=== PATIENT | male | born 1940 | race Caucasian/White ===

== ENCOUNTER 2018-01-12 12:23 | Outpatient (CLI) | payer MEDICARE ==
[2018-01-12 15:42] LABS: Bacteria/HPF None Seen HPF (None Seen); Bilirubin Negative (Negative); Blood, Urine Negative (Negative); Clarity CLEAR (Clear); Glucose, Urine (Dipstick) Negative (Negative); Hyaline Casts/LPF 0-3 HYALINE CAST LPF (0-3 Hyaline); Leukocyte Trace (Negative); Nitrite Negative (Negative); Protein, Urine (Dipstick) Negative (Neg-Trace); Specific Gravity, Urine 1.018 (1.002-1.036); Squamous Epithelial None Seen HPF (0-3); WBC/HPF None Seen HPF (0-3)
--- NOTE | 2018-01-12 17:17 | EKG ---
Test Reason : Blood Pressure : / mmHG Vent. Rate : 063 BPM Atrial Rate : 063 BPM P-R Int : 218 ms QRS Dur : 104 ms QT Int : 428 ms P-R-T Axes : 034 -26 -19 degrees QTc Int : 437 ms Sinus rhythm with 1st degree A-V block with Premature supraventricular complexes Voltage criteria for left ventricular hypertrophy Abnormal ECG Confirmed by YASMEEN MATIAS ([id number]) on 01/12/2018 5:16:30 PM Referred By: BASILIORO Confirmed By:YASMEEN MATIAS
== END 2018-01-12 12:24 | disposition home or self-care (01) ==
LOC: LABBT 12:23
PROVIDERS: ATTEND Orthopaedic Surgery
DX: Z01.818 Encounter for other preprocedural examination (principal); M17.11 Unilateral primary osteoarthritis, right knee
CPT/HCPCS: 81001; 87081; 93005; 93010

== ENCOUNTER 2018-01-18 08:48 | Outpatient (CLI) | payer MEDICARE ==
[2018-01-18 09:53] LABS: #Eosinphils 0.2 thou/uL (0.0-0.7); #Lymphocytes 1.4 thou/uL (1.20-3.40); #Monocytes 0.6 thou/uL (0.11-0.59); %Basophils 0.8 % (0.0-1.0); %Eosinophils 2.4 % (0.0-10.0); %Lymphocytes 22.6 % (21.0-51.0); %Neutrophils 64.3 % (42.0-75.0); Hemoglobin 14.1 g/dL (14.0-18.0); Mean Corpuscular HGB CONC 34.1 g/dL (32.0-36.0); Mean Corpuscular Hemoglobin 32.9 pg (27.0-31.0); Mean Corpuscular Volume 96.3 fL (78.0-98.0); Mean Platelet Volume 7.8 fL (7.4-10.4); Platelet Count 192 thou/uL (130-400); RBC Distribution Width 12.6 % (11.5-14.5); Red Blood Cell (RBC) Count 4.28 mill/uL (4.70-6.10); White Blood Cell (WBC) Count 6.2 thou/uL (4.8-10.8)
[2018-01-18 09:59] LABS: Prothrombin Time 12.8 SEC (12.0-14.7)
[2018-01-18 10:00] LABS: PTT 26.8 SEC (22.9-36.1)
[2018-01-18 10:14] LABS: Anion Gap 13 mmol/L (10-20); BUN (Urea Nitrogen) 21 mg/dL (8.4-25.7); Calc. Creatinine Clearance 0 mL/min (70-130); Calcium 9.5 mg/dL (7.8-10.44); Carbon Dioxide 24 mmol/L (23-31); Chloride 106 mmol/L (98-107); Estimated GFR-MDRD 76; Glucose 93 mg/dL (83-110); Potassium 4.2 mmol/L (3.5-5.1); Sodium 139 mmol/L (136-145)
== END 2018-01-18 08:49 | disposition home or self-care (01) ==
LOC: LABBT 08:48
PROVIDERS: ATTEND Orthopaedic Surgery
DX: Z01.818 Encounter for other preprocedural examination (principal); M17.11 Unilateral primary osteoarthritis, right knee
CPT/HCPCS: 80048; 85025; 85610; 85730; 86850; 86900; 86901

== ENCOUNTER 2018-01-23 05:25 | Inpatient (IN) | payer MEDICARE ==
[2018-01-23] MEDS ORDERED: Lidocaine 1% PF 5 ML VIAL ONE ×2 (06:20→12:50)
[2018-01-23] MEDS ORDERED: Fentanyl 100 MCG/2 ML VIAL ONE (06:20)
[2018-01-23] MEDS ORDERED: Midazolam HCl 2 mg/2 ml Vial ONE (06:20)
[2018-01-23] MEDS ORDERED: CEFAZOLIN/Water 2 GM/20 ML SYRINGE ONE (06:23)
[2018-01-23] MEDS ORDERED: Sodium Chloride 0.9% 100 ML ONE (06:23)
[2018-01-23] MEDS ORDERED: Bupivacaine PF 0.5% 30 ML VIAL ONE (06:39)
[2018-01-23] MEDS ORDERED: Ondansetron HCl/PF 4 MG/2 ML Vial IVP PRN ×3 (07:14→09:32)
[2018-01-23] MEDS ORDERED: Promethazine HCl 25 MG/ML VIAL SLOW IVP PRN (07:14)
[2018-01-23] MEDS ORDERED: Ketorolac Tromethamine 30 MG/ML VIAL IVP PRN (07:14)
[2018-01-23] MEDS ORDERED: Promethazine HCl 25 MG/ML VIAL IM PRN ×3 (07:14→09:32)
[2018-01-23] MEDS ORDERED: traMADol HCl 50 MG TAB PO PRN ×3 (07:22→09:32)
[2018-01-23] MEDS ORDERED: Acetaminophen 325 MG TAB PO PRN (07:22)
[2018-01-23] MEDS ORDERED: diphenhydrAMINE 25 MG CAP PO PRN (07:22)
[2018-01-23] MEDS ORDERED: Fentanyl 100 MCG/2 ML VIAL SLOW IVP PRN (07:22)
[2018-01-23] MEDS ORDERED: HYDROcodone/Acetaminophen 10/325 mg Tablet PO PRN ×3 (07:22→09:32)
[2018-01-23] MEDS ORDERED: Zolpidem Tartrate 5 MG TAB PO PRN (07:22)
[2018-01-23] MEDS ORDERED: Tranexamic Acid 1,000 MG in Sodium Chloride 0.9% 100 ML IVPB SCH (07:30)
[2018-01-23] MEDS ORDERED: HYDROmorphone 0.5 MG/0.5 ML SYRINGE ONE (07:49)
[2018-01-23] MEDS ORDERED: metFORMIN 500 MG TAB PO SCH (08:00)
[2018-01-23] MEDS ORDERED: Ropivacaine HCl/PF 250 ML in Premix Bag 1 BAG NERVE BLCK SCH (09:32)
[2018-01-23] MEDS ORDERED: Fentanyl 100 MCG/2 ML VIAL IV PRN (09:33)
[2018-01-23] MEDS: Sodium Chloride 0.9% 1,000 ML IV SCH ×2 (10:52→17:46)
[2018-01-23] MEDS ORDERED: Ropivacaine 0.5% HCl/PF (150 MG/30 ML VIAL) ONE (11:13)
[2018-01-23] MEDS ORDERED: Bupivacaine 0.25% HCL 30 ML VIAL ONE (11:13)
[2018-01-23] MEDS ORDERED: PROPOFOL 200 MG/20 ML VIAL ONE (12:50)
[2018-01-23] MEDS ORDERED: ePHEDrine/0.9% NaCl/PF SYRINGE 50 mg/10 ml ONE (12:50)
[2018-01-23] MEDS ORDERED: Ketorolac Tromethamine 30 MG/ML VIAL ONE (12:50)
[2018-01-23] MEDS ORDERED: Ondansetron HCl/PF 4 MG/2 ML Vial ONE (12:50)
--- NOTE | 2018-01-23 12:51 | CON-2 ---
DATE OF CONSULTATION: 01/23/2018 REASON FOR CONSULT: Medical management. RESIDENT: Dr. Jenaro Currie, PGY-2 ATTENDING: Dr. Esteban Gupta CHIEF COMPLAINT: Here for right knee replacement. HISTORY OF PRESENT ILLNESS: This is a 77-year-old male who presented today for surgery for a right knee replacement due to severe osteoarthritis. The patient is doing well. He is postop. He denies any problems at this time. He received a nerve block. Reports pain being well managed at this time. He has no other complaints of fever or chills. No complaints of shortness of breath. Denies any abdominal pain. Denies any other problems at this time. No other questions or concerns at this time. REVIEW OF SYSTEMS: All review of systems unless in the HPI or otherwise negative. Neuro: Denies any numbness, tingling. Denies any focal neuro deficits. PAST MEDICAL HISTORY: Hypertension, diabetes mellitus type 2, osteoarthritis and prostate cancer and he also has a history of kidney stones, he has recently passed one 1 month ago. PAST SURGICAL HISTORY: He had a right rotator cuff repair, he has had a left knee replacement, and now the right knee replaced. He has had to have a kidney stone removed by lithotripsy in the past. FAMILY HISTORY: Insignificant. ALLERGIES: No known drug allergies. MEDICATIONS: 1. Magnesium 250 mg p.o. at bedtime. 2. Doxazosin 2 mg p.o. at bedtime. 3. Vitamin D3 1000 units p.o. daily. 4. Naproxen 1 tab p.o. b.i.d. 5. Aspirin 81 mg p.o. q.p.m. 6. Tamsulosin 2.4 mg 2 tabs p.o. daily. 7. Metformin 500 mg 2 tabs p.o. b.i.d. 8. Glipizide 5 mg p.o. q.p.m. PHYSICAL EXAMINATION: VITAL SIGNS: Initial vital signs; temperature was 97.4, pulse 75, respirations 18, O2 sat was 96% on 2 liters nasal cannula, blood pressure 151/92. GENERAL: He is alert and oriented x3, no acute distress. HEAD: Atraumatic, normocephalic. EARS/NOSE/THROAT: Eyes; PERRLA. No injected sclerae. Throat; no swelling, no masses. No lymphadenopathy. Trachea midline. CARDIOVASCULAR: Regular rate and rhythm. No murmurs or gallops. RESPIRATORY: Lungs are clear to auscultation in all 4 lobes. No rales, wheezes or crackles. Symmetric chest expansion. Somewhat difficult to auscultate due to body habitus. ABDOMEN: Nontender to palpation in all 4 quadrants. Bowel sounds positive. No masses. Nondistended. NEUROLOGIC: No focal neuro deficit. MUSCULOSKELETAL: Able to move upper extremities. Right leg is dressed at this time. No sign of oozing or redness. The patient is yet to get up postop. EXTREMITIES: No edema noted in bilateral extremities. LABORATORY DATA: No significant labs. ASSESSMENT AND PLAN: 1. Right knee replacement. We will continue current pain regimen as prescribed by the primary Surgery Team/Ortho Team. He has a nerve block as well from Anesthesiology. We will continue to follow their recommendations. 2. Hypertension. We will continue to monitor blood pressure and adjust medicines as needed on doxazosin at this time, will continue at regular dose. 3. Diabetes mellitus type 2. We will continue his home medications. We will check Accu-Cheks q.12h. to make sure the patient does not get hypoglycemic as he has not eaten yet today. 4. History of prostate cancer. We will continue his home medications at this time. 5. Deep venous thrombosis prophylaxis. He has SCDs on. 6. Gastrointestinal prophylaxis, he has promethazine p.r.n. MTDD
[2018-01-23] MEDS: Aspirin 81 mg Enteric Coated Tablet PO SCH ×2 (13:29→20:31)
[2018-01-23] MEDS: Tamsulosin HCl 0.4 MG CAP PO SCH (13:29)
[2018-01-23] MEDS ORDERED: Ketorolac Tromethamine 30 MG/ML VIAL IVP SCH (14:00)
--- NOTE | 2018-01-23 15:19 | PDOC.EVN ---
Attending Addendum - Attending Addendum Date/Time: 01/23/18 9632 I personally evaluated the patient and discussed the management with Dr. Currie. I agree with the History, Examination, Assessment and Plan documented in his consultation note with any addition or exceptions noted below. Patient is 77 yo M with PMHx HTN, T2DM controlled on oral medications here for elective R TKR. He reports his pain is well controlled s/p surgery this morning. Exam is benign and BP mildly elevated but otherwise vitals are stable. Pain control and disposition will be per the primary team. We will continue him on his home medications for chronic conditions and adjust as needed. Continue accuchecks and need to ensure he eats well to prevent hypoglycemia in setting of sulfonylurea use. We will be happy to follow along during the hospitalization and treat any emerging medical conditions that may occur during the hospitalization.
[2018-01-23] MEDS: CEFAZOLIN/Water 2 GM/20 ML SYRINGE SLOW IVP SCH ×2 (15:58→22:59)
[2018-01-23] MEDS: metFORMIN 500 MG TAB PO SCH (17:44)
[2018-01-23] MEDS: glipiZIDE 5 MG TAB PO SCH (20:32)
[2018-01-23] MEDS: Magnesium Oxide 250 MG TAB PO SCH (20:32)
[2018-01-23] MEDS: Doxazosin 2 MG TAB PO SCH (20:32)
[2018-01-24] MEDS: HYDROcodone/Acetaminophen 10/325 mg Tablet PO PRN ×2 (02:31→11:34)
[2018-01-24] MEDS: Sodium Chloride 0.9% 1,000 ML IV SCH ×2 (04:21→13:57)
[2018-01-24 05:44] LABS: Hemoglobin 11.6 g/dL (14.0-18.0); Mean Corpuscular HGB CONC 34.2 g/dL (32.0-36.0); Mean Corpuscular Hemoglobin 33.2 pg (27.0-31.0); Mean Corpuscular Volume 97.2 fL (78.0-98.0); Mean Platelet Volume 7.6 fL (7.4-10.4); Platelet Count 162 thou/uL (130-400); RBC Distribution Width 12.6 % (11.5-14.5); Red Blood Cell (RBC) Count 3.48 mill/uL (4.70-6.10); White Blood Cell (WBC) Count 9.1 thou/uL (4.8-10.8)
[2018-01-24] MEDS ORDERED: Ferrous Gluconate 324 MG TAB PO SCH (08:00)
[2018-01-24] MEDS: metFORMIN 500 MG TAB PO SCH ×2 (10:05→18:31)
[2018-01-24] MEDS: Multivitamin W/ Minerals 1 TAB PO SCH (10:05)
[2018-01-24] MEDS: Aspirin 81 mg Enteric Coated Tablet PO SCH ×2 (10:05→20:58)
[2018-01-24] MEDS: Tamsulosin HCl 0.4 MG CAP PO SCH (10:05)
[2018-01-24] MEDS: Senokot S 8.6-50 MG TAB PO SCH ×2 (10:05→20:58)
[2018-01-24] MEDS: Ketorolac Tromethamine 30 MG/ML VIAL IVP PRN (11:37)
[2018-01-24 14:12] VITALS: BMI 38.2
[2018-01-24] MEDS: glipiZIDE 5 MG TAB PO SCH (20:58)
[2018-01-24] MEDS: Magnesium Oxide 250 MG TAB PO SCH (20:58)
[2018-01-24] MEDS: Zolpidem Tartrate 5 MG TAB PO PRN (21:00)
[2018-01-24] MEDS: Doxazosin 2 MG TAB PO SCH (21:02)
[2018-01-25] MEDS: Ketorolac Tromethamine 30 MG/ML VIAL IVP PRN (00:12)
[2018-01-25] MEDS: Sodium Chloride 0.9% 1,000 ML IV SCH ×3 (00:18→19:30)
[2018-01-25 05:14] LABS: Hemoglobin 10.5 g/dL (14.0-18.0); Mean Corpuscular HGB CONC 34.6 g/dL (32.0-36.0); Mean Corpuscular Hemoglobin 33.8 pg (27.0-31.0); Mean Corpuscular Volume 97.5 fL (78.0-98.0); Mean Platelet Volume 7.3 fL (7.4-10.4); Platelet Count 147 thou/uL (130-400); RBC Distribution Width 12.5 % (11.5-14.5); White Blood Cell (WBC) Count 7.9 thou/uL (4.8-10.8)
[2018-01-25] MEDS: Aspirin 81 mg Enteric Coated Tablet PO SCH ×2 (08:32→20:59)
[2018-01-25] MEDS: metFORMIN 500 MG TAB PO SCH ×2 (08:32→17:33)
[2018-01-25] MEDS: Multivitamin W/ Minerals 1 TAB PO SCH (08:32)
[2018-01-25] MEDS: Senokot S 8.6-50 MG TAB PO SCH ×2 (08:32→20:59)
[2018-01-25] MEDS: Tamsulosin HCl 0.4 MG CAP PO SCH (08:32)
--- NOTE | 2018-01-25 09:15 | PDOC.FM ---
- Subjective Subjective: Pt doing well. Up in chair this am. Pain being well controlled. Denies any acute events overnight. Denies any chest pain or SOB. Denies any n/v/d/c. Denies any leg swelling or pain unrelated to surgery - Objective MAR Reviewed: Yes Vital Signs & Weight: Vital Signs (12 hours) Temp Pulse Resp BP Pulse Ox 01/25/18 07:41 98.8 F 79 20 132/79 94 L 01/25/18 04:19 98.6 F 82 16 136/75 93 L 01/25/18 00:00 98 F 84 18 123/77 93 L Weight Admit Weight 131.542 kg Weight 131.542 kg I&O: 01/24/18 01/25/18 01/26/18 06:59 06:59 06:59 Intake Total 1700 910 960 Balance 1700 910 960 Result Diagrams: 01/25/18 04:35 <Jenaro Currie - Last Filed: 01/25/18 09:17> - Objective Vital Signs & Weight: Vital Signs (12 hours) Temp Pulse Resp BP Pulse Ox 01/25/18 08:00 98.8 F 79 20 01/25/18 07:41 98.8 F 79 20 132/79 94 L 01/25/18 04:19 98.6 F 82 16 136/75 93 L 01/25/18 00:00 98 F 84 18 123/77 93 L Weight Admit Weight 131.542 kg Weight 131.542 kg I&O: 01/24/18 01/25/18 01/26/18 06:59 06:59 06:59 Intake Total 1700 910 960 Balance 1700 910 960 Result Diagrams: 01/25/18 04:35 <Odessa Humphries - Last Filed: 01/25/18 11:32> Phys Exam - Physical Examination Constitutional: NAD HEENT: PERRLA, oral pharynx no lesions Neck: no nodes, supple, full ROM Respiratory: no wheezing, no rales, no rhonchi, clear to auscultation bilateral Cardiovascular: RRR, no significant murmur, no rub Gastrointestinal: soft, non-tender, no distention, positive bowel sounds Musculoskeletal: no edema, pulses present Neurological: non-focal, moves all 4 limbs Lymphatic: no nodes Psychiatric: normal affect, A&O x 3 Skin: no rash, normal turgor, cap refill <2 seconds <Jenaro Currie - Last Filed: 01/25/18 09:17> Dx/Plan (1) Total knee replacement status Code(s): Z96.659 - PRESENCE OF UNSPECIFIED ARTIFICIAL KNEE JOINT Status: Acute (2) Diabetes mellitus Code(s): E11.9 - TYPE 2 DIABETES MELLITUS WITHOUT COMPLICATIONS Status: Acute Qualifiers: Diabetes mellitus type: type 2 Diabetes mellitus complication status: without complication (3) Hypertension Code(s): I10 - ESSENTIAL (PRIMARY) HYPERTENSION Status: Acute (4) History of prostate cancer Code(s): Z85.46 - PERSONAL HISTORY OF MALIGNANT NEOPLASM OF PROSTATE Status: Acute - Plan Plan: R. Total Knee Replacement -Post Op day 2. -PT/OT. Pain well controlled -Ortho managing DMII -continue home meds. On oral medications. BG stable. Accuchecks BID HTN -BP stable. continue home meds Hx Prostate cancer -continue home meds -Denies any urinary retention or symptoms at this time. <Jenaro Currie - Last Filed: 01/25/18 09:17> Attending Addendum - Attending Addendum Date/Time: 01/25/18 1131 I personally evaluated the patient and discussed the management with Dr. Currie I agree with the History, Examination, Assessment and Plan documented above with any addition or exceptions noted below- Patient without complaints. Some increased pain today. Afebrile VSS. A/P: 1) POD#2 s/p R TKR- plans as per ortho. 2) DM- stable; continue home meds. 3) HTN- stable; continue home meds.l <Odessa Humphries - Last Filed: 01/25/18 11:32>
--- NOTE | 2018-01-25 12:21 | PRG ---
DATE OF SERVICE: 01/25/2018 SUBJECTIVE: Tyree is a 77-year-old white male who is postop day #2 from a right total knee arthropla sty. He is having difficulty ambulating distances greater than 20-30 feet at this point. He is stil l using the brace or quadriceps strength. Subjectively he is concerned about is own mobility and real lity to cover great distances. OBJECTIVE: VITAL SIGNS: Temperature 98.8, pulse 79, respiratory rate 20, O2 saturation on room air is 94%, bloo d pressure 132/79. GENERAL: He is alert and oriented to person, place, time, and situation. Nonfocal. He is appropria te with the examiner. EXTREMITIES: His incision is clean and closed. No erythema, no strikethrough. He is neurovascularl y intact in the involved extremity. ASSESSMENT: A 77-year-old white male postop day #1 right total knee arthroplasty, with difficulty wi th questionable mobility. PLAN: Diminish the block, remove the brace, see how he does with therapy. It is difficult to say wh ether or not he will discharge today or tomorrow based on his current mobility, but he is not stable for home discharge as of this morning's evaluation. I will recheck this evening and consider home lamine olson, but if not, I will keep him another night.
[2018-01-25] MEDS: HYDROcodone/Acetaminophen 10/325 mg Tablet PO PRN (17:33)
[2018-01-25] MEDS: Magnesium Oxide 250 MG TAB PO SCH (20:58)
[2018-01-25] MEDS: glipiZIDE 5 MG TAB PO SCH (20:58)
[2018-01-25] MEDS: Doxazosin 2 MG TAB PO SCH (20:59)
[2018-01-25] MEDS: Zolpidem Tartrate 5 MG TAB PO PRN (21:02)
[2018-01-26] MEDS: Sodium Chloride 0.9% 1,000 ML IV SCH (04:57)
[2018-01-26 05:05] LABS: Hemoglobin 10.7 g/dL (14.0-18.0); Mean Corpuscular HGB CONC 34.5 g/dL (32.0-36.0); Mean Corpuscular Hemoglobin 33.7 pg (27.0-31.0); Mean Corpuscular Volume 97.4 fL (78.0-98.0); Mean Platelet Volume 7.2 fL (7.4-10.4); Platelet Count 155 thou/uL (130-400); RBC Distribution Width 12.5 % (11.5-14.5); Red Blood Cell (RBC) Count 3.19 mill/uL (4.70-6.10); White Blood Cell (WBC) Count 7.9 thou/uL (4.8-10.8)
--- NOTE | 2018-01-26 08:19 | PDOC.FM ---
- Subjective Subjective: Pt doing well this morning. Up in the chair. Manuel any acute events overnight. Denies any fever or chills. Denies any SOB or chest pain. Says he has not been able to walk as well as he thought. Pain controlled - Objective MAR Reviewed: Yes Vital Signs & Weight: Vital Signs (12 hours) Temp Pulse Resp BP Pulse Ox 01/26/18 04:00 98.0 F 78 20 123/80 96 01/26/18 00:00 98.2 F 82 18 125/76 94 L Weight Admit Weight 131.542 kg Weight 131.542 kg I&O: 01/25/18 01/26/18 01/27/18 06:59 06:59 06:59 Intake Total 910 1760 960 Output Total 200 Balance 910 1560 960 Result Diagrams: 01/26/18 04:43 <Jenaro Currie - Last Filed: 01/26/18 08:17> - Objective Vital Signs & Weight: Vital Signs (12 hours) Temp Pulse Resp BP Pulse Ox 01/26/18 08:48 98.1 F 85 16 133/72 93 L 01/26/18 04:00 98.0 F 78 20 123/80 96 01/26/18 00:00 98.2 F 82 18 125/76 94 L Weight Admit Weight 131.542 kg Weight 131.542 kg I&O: 01/25/18 01/26/18 01/27/18 06:59 06:59 06:59 Intake Total 910 1760 960 Output Total 200 Balance 910 1560 960 Result Diagrams: 01/26/18 04:43 <Odessa Humphries - Last Filed: 01/26/18 10:39> Phys Exam - Physical Examination Constitutional: NAD HEENT: PERRLA, moist MMs Neck: no nodes, supple, full ROM Respiratory: no wheezing, no rales, no rhonchi, clear to auscultation bilateral Cardiovascular: RRR, no significant murmur, no rub Gastrointestinal: soft, non-tender, no distention, positive bowel sounds Musculoskeletal: no edema, pulses present Neurological: non-focal, normal sensation Lymphatic: no nodes Psychiatric: normal affect, A&O x 3 Skin: no rash, normal turgor <Jenaro Currie - Last Filed: 01/26/18 08:17> Dx/Plan (1) Total knee replacement status Code(s): Z96.659 - PRESENCE OF UNSPECIFIED ARTIFICIAL KNEE JOINT Status: Acute (2) Diabetes mellitus Code(s): E11.9 - TYPE 2 DIABETES MELLITUS WITHOUT COMPLICATIONS Status: Acute Qualifiers: Diabetes mellitus type: type 2 Diabetes mellitus complication status: without complication (3) Hypertension Code(s): I10 - ESSENTIAL (PRIMARY) HYPERTENSION Status: Acute (4) History of prostate cancer Code(s): Z85.46 - PERSONAL HISTORY OF MALIGNANT NEOPLASM OF PROSTATE Status: Acute - Plan Plan: R. Total Knee Replacement -Post Op day 3 -PT/OT. Pain well controlled -Ortho managing DMII -continue home meds. On oral medications. BG stable. Accuchecks BID HTN -BP stable. continue home meds Hx Prostate cancer -continue home meds -Denies any urinary retention or symptoms at this time. <Jenaro Currie - Last Filed: 01/26/18 08:17> Attending Addendum - Attending Addendum Date/Time: 01/26/18 1036 I personally evaluated the patient and discussed the management with Dr. Currie I agree with the History, Examination, Assessment and Plan documented above with any addition or exceptions noted below- Patient without complaints. Doing better with PT today. Afebrile VSS. A/P: 1) POD#3 s/p Right TKR- continue PT/ plans as per ortho. 2) DM- stblae; continue current meds. 3) HTN- stable; continue current meds. <Odessa Humphries - Last Filed: 01/26/18 10:39>
[2018-01-26] MEDS: Aspirin 81 mg Enteric Coated Tablet PO SCH (08:43)
[2018-01-26] MEDS: Multivitamin W/ Minerals 1 TAB PO SCH (08:43)
[2018-01-26] MEDS: Senokot S 8.6-50 MG TAB PO SCH (08:43)
[2018-01-26] MEDS: metFORMIN 500 MG TAB PO SCH (08:43)
[2018-01-26] MEDS: Tamsulosin HCl 0.4 MG CAP PO SCH (08:43)
[2018-01-26 11:42] VITALS: BP 161/74; TEMP 98.2
--- NOTE | 2018-01-27 14:39 | OP ---
DATE OF PROCEDURE: 01/23/2018 PREOPERATIVE DIAGNOSIS: Right knee osteoarthrosis. POSTOPERATIVE DIAGNOSIS: Right knee osteoarthrosis. PROCEDURE PERFORMED: Right total knee replacement using Abhijeet pinless navigation. SURGEON: Rubin Nichols M.D. HEALTHCARE MANAGEMENT CONSULTANT: Jesus Villavicencio PA-C. ANESTHETIC: The patient had general anesthetic as well as preoperative block. DISPOSITION: He did go to the recovery room in stable condition. COMPLICATIONS: There were no complications. IMPLANTS: To the right knee included a Abhijeet Triathlon knee system. The femur was a size 6 right cruciate retaining femur. The tibial baseplate was a size 6 universal baseplate. The tibial insert was a size 6 x 9 mm CS X3 bearing and the patella was an A32 x 10 X3 patella. INDICATIONS: Mr. Holloway is a 77-year-old male who comes in complaining of continued right knee pain despite nonoperative treatment. At this time, he has failed nonoperative treatment and wished to diane ve his knee replaced. PROCEDURE IN DETAIL: After all appropriate consent forms were explained and signed, the patient was t aken back to the Operating Room and at this time was given general anesthetic. Once the level of anes thesia was appropriate, a well-padded tourniquet was placed on the right leg and the leg was then pre pped and draped in standard surgical fashion. The limb was exsanguinated and tourniquet taken up to 3 00 mmHg. Midline incision was made with a 10 blade down through the skin and subcutaneous tissue. Bov ie electrocautery was used to coagulate any brisk venous bleeding. A new blade was used to make a med ial parapatellar arthrotomy. Small subperiosteal release was performed medially and excess fat pad wa s removed. The knee was flexed up to gain access to the femur. The femur was navigated and distal fem oral resection was made. Epicondylar access was used to align our sizing jig and this was pinned in p maryam. We sized our femur to be a size 6 right cruciate retaining femur. 4:1 cutting block was applied and pinned. Anterior and posterior chamfer cuts were then made. We navigated out our proximal tibia and made our proximal tibial resection. Spreaders were used to remove any posterior osteophytes off t he back of the femur as well as remaining meniscal tissue. A long alignment diana was then used to achi jarrod correct rotation of our tibial baseplate and a size 6 universal baseplate was chosen. This was pi nned in place. We trialed the polyethylene and a size 6 x 9 mm CS X3 bearing gave us full extension a nd good stability throughout range of motion. Two towel clips and a saw were used to cut our patella. Three lug nuts were drilled and A32 x 10 X3 patella was trialed which sat nicely in the trochlear gr oove. We then drilled our femur and punched our tibia. All components were removed. The knee was thor oughly irrigated and dried. Cement was mixed into the cement gun on the back table. Components were t hen placed. The knee was held out in full extension until the cement had dried. All excess bone cemen t was removed. Multiple #2 Vicryl stitches as well as a Quill was used to close our extensor mechani sm. 0 Quill followed by a running Monoderm was then used to close the skin. Surgicel glue was then us ed on the skin. Once this had dried, soft tissue dressing was applied to the limb, tourniquet was let down, and the toes pinked up nicely. The patient was then awakened and taken to the Recovery Room i n stable condition. All counts were correct at the end of the case. The patient did receive preoperat ellen IV antibiotics. The patient was injected with Exparel for postoperative pain relief.
--- NOTE | 2018-01-27 14:39 | DIS ---
DATE OF ADMISSION: 01/23/2018 DATE OF DISCHARGE: 01/26/2018 DISCHARGE DISPOSITION: To home. ADMISSION DIAGNOSIS: End-stage tricompartmental osteoarthritis, right knee. DISCHARGE DIAGNOSIS: End-stage tricompartmental osteoarthritis, right knee. OPERATIVE PROCEDURE: Right total knee arthroplasty. CONSULTANTS: [facility] for acute postop pain management and [facility] fo r medical management. BRIEF CLINICAL HISTORY: The patient is a 77-year-old male who was admitted to [facility] and underwent the above elective procedure on the date of admission without intra, gabby, or postoperative complication. The hospital course was unremarkable. At the time of discharge, the patient is afebrile, ambulatory without assistance utilizing a rolling walker in a full weightbearing fashion, tolerating a regular diet, and voiding without difficulty. The patient's incision is clean and closed without any erythema. DISCHARGE MEDICATIONS: Please see medication reconciliation form. We will be happy to see the patient on an as needed basis between now and her next scheduled appointm ent. CONDITION ON DISCHARGE: Stable. PROGNOSIS: Good.
== END 2018-01-26 14:57 | disposition home or self-care (01) | DRG 470 ==
LOC: SDC 05:25 → SJJU 10:23
PROVIDERS: ADMIT Orthopaedic Surgery; ATTEND Orthopaedic Surgery
PROC: 0SRC0J9 Replacement of Right Knee Joint with Synthetic Substitute, Cemented, Open Approach (ICD-10-PCS; principal; 2018-01-23)
DX: M17.11 Unilateral primary osteoarthritis, right knee (principal); I10 Essential (primary) hypertension; E11.9 Type 2 diabetes mellitus without complications; Z79.84 Long term (current) use of oral hypoglycemic drugs; Z85.46 Personal history of malignant neoplasm of prostate; Z87.442 Personal history of urinary calculi; Z82.49 Family history of ischemic heart disease and other diseases of the circulatory system
CPT/HCPCS: 36415; 36416; 85027; C1713; C1776; G8978-GP-CJ; G8979-GP-CI; J1170; J1885; J2001; J2250; J2405; J2704; J2795; J3010; J3370; J7050; S0020

== ENCOUNTER 2018-02-11 17:38 | Inpatient (IN) | payer MEDICARE ==
[~2018-02-11 17:38] MED LIST: ISOVUE-370 76%-LOCM 1 ML ONE
[2018-02-11] MEDS ORDERED: Piperacillin/Tazobactam 4.5 GM VIAL ONE (18:25)
--- NOTE | 2018-02-11 18:25 | RAD ---
RADIOGRAPH CHEST 1 VIEW: 02/11/18 HISTORY: 77-year-old male with dyspnea and chest pain. FINDINGS: There is no air space density, pulmonary edema, or pneumothorax. The lateral costophrenic angles are sharp. IMPRESSION: No acute pulmonary findings. jn [] POS: VINI
[2018-02-11] MEDS ORDERED: Ondansetron HCl/PF 4 MG/2 ML Vial ONE (18:26)
[2018-02-11 18:33] LABS: #Eosinphils 0.1 thou/uL (0.0-0.7); #Lymphocytes 0.4 thou/uL (1.20-3.40); #Neutrophils 0.9 thou/uL (1.40-6.50); %Eosinophils 8.4 % (0.0-10.0); %Lymphocytes 26.7 % (21.0-51.0); %Monocytes 2.3 % (0.0-10.0); %Neutrophils 62.6 % (42.0-75.0); Hemoglobin 11.6 g/dL (14.0-18.0); Mean Corpuscular HGB CONC 33.1 g/dL (32.0-36.0); Mean Corpuscular Hemoglobin 31.9 pg (27.0-31.0); Mean Corpuscular Volume 96.4 fL (78.0-98.0); Mean Platelet Volume 6.6 fL (7.4-10.4); Platelet Count 216 thou/uL (130-400); RBC Distribution Width 12.8 % (11.5-14.5); Red Blood Cell (RBC) Count 3.63 mill/uL (4.70-6.10); White Blood Cell (WBC) Count 1.4 thou/uL (4.8-10.8)
[2018-02-11 18:54] LABS: ALT (SGPT) 17 U/L (8-55); AST (SGOT) 14 U/L (5-34); Albumin 3.7 g/dL (3.4-4.8); Alkaline Phosphatase 95 U/L (40-150); Anion Gap 14 mmol/L (10-20); BUN (Urea Nitrogen) 19 mg/dL (8.4-25.7); Bilirubin, Total 0.9 mg/dL (0.2-1.2); Calc. Creatinine Clearance 0 mL/min (70-130); Calcium 9.3 mg/dL (7.8-10.44); Carbon Dioxide 23 mmol/L (23-31); Chloride 105 mmol/L (98-107); Estimated GFR-MDRD 64; Globulin 3.6 g/dL (2.4-3.5); Glucose 116 mg/dL (83-110); Potassium 3.9 mmol/L (3.5-5.1); Protein, Total 7.3 g/dL (5.8-8.1); Sodium 138 mmol/L (136-145)
[2018-02-11 18:57] LABS: CKMB 3.6 ng/mL (0-6.6); Troponin I Less than 0.010 ng/mL (< 0.028)
[2018-02-11 21:20] LABS: Bilirubin Negative (Negative); Blood, Urine Large (Negative); Clarity CLEAR (Clear); Glucose, Urine (Dipstick) Negative (Negative); Leukocyte Moderate (Negative); Nitrite Negative (Negative); Protein, Urine (Dipstick) 30 mg/dL (Neg-Trace); Specific Gravity, Urine 1.021 (1.002-1.036); Urobilinogen 0.2 mg/dL (0.2-1.0)
[2018-02-11 21:23] LABS: Bacteria/HPF None Seen HPF (None Seen); Hyaline Casts/LPF 4-6 HYALINE CAST LPF (0-3 Hyaline); Pathc Cast-AUWi Flag 0.14 (0-2.49); RBC/HPF GREATER THAN 50-TNTC HPF (0-3); Squamous Epithelial None Seen HPF (0-3); WBC/HPF 21-50 HPF (0-3)
--- NOTE | 2018-02-11 21:31 | CT ---
CTA THORAX WITH CONTRAST: 02/11/18 at 8:47 p.m. (Computed Tomographic Angiography, chest(noncoronary) with contrast material, and image postprocessin g) (PE protocol) HISTORY: 77-year-old male with dyspnea. TECHNIQUE: IV injection of iodinated contrast. Scan acquisition timing attempted to coincide with iodinated contrast bolus reaching maximal density in pulmonary arteries. 3D MIP reconstructions. FINDINGS: There is breathing motion artifact degrading the images. This, together with body habitus and subopti mal IV contrast opacification of the branches of the pulmonary arteries, makes it difficult to evalua te for pulmonary embolism involving the proximal and distal branches of the left and right main pulmo nary arteries. There is no thromboembolism in the left and right main pulmonary arteries or pulmonic trunk. No thoracic aortic aneurysm or dissection. No pleural effusion or pneumothorax. No consolidati on. IMPRESSION: No central pulmonary thromboembolism identified. Difficult to evaluate for peripheral pulmonary throm boembolism because of combination of patient breathing motion artifact, body habitus, and slightly mares boptimal contrast opacification of branches of the pulmonary arteries. dayanara[] POS: VINI
[2018-02-11] MEDS ORDERED: Magnesium Sulfate 2 GM in Sodium Chloride 0.9% 100 ML IVPB SCH (22:15)
[2018-02-11 22:29] LABS: Lactic Acid 6.4 mmol/L (0.5-2.2)
--- NOTE | 2018-02-11 23:17 | PDOC.FPRHP ---
- History of Present Illness Chief Complaint: SOB History of Present Illness: Mr. Rowland presents to the ED tonight after having sudden onset shortness of breath when sitting down to dinner. He states that he had significant chills and SOB all of the sudden, He denies chest pain, palpitations, syncope, or recent illness. He was in his usual state of health before this episode. He has never experienced anything like this before and has not history of blood clots. He is recovering well from his knee replacement 3 weeks ago. ED Course: UA, MG, CTA (inadequate study), BNP, BCx, Ddimer, LA, CXR, EKG, Trop/CKMB, CMP/ CBC, 2L NS, Vanc, Zosyn - Allergies/Adverse Reactions Allergies Allergy/AdvReac Type Severity Reaction Status Date / Time No Known Drug Allergies Allergy Verified 01/12/18 12:47 - Home Medications Medication Instructions Recorded Confirmed Type Tamsulosin HCl [Flomax] 2 tab PO DAILY 09/21/16 02/12/18 History metFORMIN [Glucophage] 500 mg PO BID 09/21/16 02/12/18 History Cholecalciferol (Vitamin D3) 1,000 unit PO DAILY 01/12/18 02/12/18 History [Vitamin D3] Doxazosin [Cardura] 2 mg PO HS 01/12/18 02/12/18 History Magnesium 250 mg PO HS 01/12/18 02/12/18 History glipiZIDE [Glucotrol] 10 mg PO QPM 01/12/18 02/12/18 History Aspirin [Ecotrin Low Strength] 81 mg PO BID tab 01/26/18 02/12/18 Rx Lisinopril 5 mg PO DAILY 02/12/18 02/12/18 History Naproxen 500 mg PO PRN PRN 02/12/18 02/12/18 History - History PMHx:DMII, HTN, Prostate CA, HLD, nephrolithiasis PSHx: retinal detachement repair, knee and shoulder surgery FHx: Unremarkable Social: No tobacco use - Review of Systems General: reports: fever/chills, fatigue. denies: weight/appetite/sleep changes Eyes: denies: vision changes ENT: denies: nasal congestion, rhinorrhea Respiratory: reports: shortness of breath. denies: cough, congestion Cardiovascular: reports: edema (increased RLE swelling). denies: chest pain, palpitation Gastrointestinal: denies: nausea, vomiting, diarrhea Genitourinary: denies: incontinence, dysuria Skin: denies: rashes, lesions Musculoskeletal: denies: pain, tenderness, stiffness Neurological: denies: numbness, syncope, seizure - Vital signs BP: [98/55] HR: [106] RR: [26] Tmax: [97.9] Pox: [97]% on [RA] Wt: [134kg] - Physical Exam Constitutional: well developed, other (labored breathing throughout exam, somnolent) HEENT: normocephalic and atraumatic, grossly normal vision, grossly normal hearing, MMM Neck: supple, trachea midline Chest: no-tender to palpation, no lesions Heart: normal S1/S2, no murmurs/rubs/gallops, pulses present, other (tachycardia , RLE pitting edema extending to knee) Lungs: good air movement, no rales/rhonchi, no wheezing, other (tachypnic, labored breathing) Abdomen: soft, non-tender Musculoskeletal: normal structure, normal tone Neurological: no focal deficit, CN II-XII intact, normal sensation Skin: no rash/lesions, good turgor Heme/Lymphatic: no unusual bruising or bleeding, no petechia Psychiatric: normal mood and affect FMR H&P: Results - Labs Result Diagrams: 02/11/18 18:22 02/11/18 18:22 Lab results: WBC 1.4 thou/uL (4.8-10.8) L 02/11/18 18:22 Hgb 11.6 g/dL (14.0-18.0) L 02/11/18 18:22 Hct 35.0 % (42.0-52.0) L 02/11/18 18:22 MCV 96.4 fL (78.0-98.0) 02/11/18 18:22 Plt Count 216 thou/uL (130-400) 02/11/18 18:22 Neutrophils % 62.6 % (42.0-75.0) 02/11/18 18:22 Sodium 138 mmol/L (136-145) 02/11/18 18:22 Potassium 3.9 mmol/L (3.5-5.1) 02/11/18 18:22 Chloride 105 mmol/L (98-107) 02/11/18 18:22 Carbon Dioxide 23 mmol/L (23-31) 02/11/18 18:22 BUN 19 mg/dL (8.4-25.7) 02/11/18 18:22 Creatinine 1.11 mg/dL (0.6-1.3) 02/11/18 18:22 Glucose 116 mg/dL (83-110) H 02/11/18 18:22 Lactic Acid 6.4 mmol/L (0.5-2.2) H* 02/11/18 21:59 Calcium 9.3 mg/dL (7.8-10.44) 02/11/18 18:22 Total Bilirubin 0.9 mg/dL (0.2-1.2) 02/11/18 18:22 AST 14 U/L (5-34) 02/11/18 18:22 ALT 17 U/L (8-55) 02/11/18 18:22 Alkaline Phosphatase 95 U/L (40-150) 02/11/18 18:22 CK-MB (CK-2) 3.6 ng/mL (0-6.6) 02/11/18 18:22 B-Natriuretic Peptide 36.3 pg/mL (0-100) 02/11/18 18:22 Serum Total Protein 7.3 g/dL (5.8-8.1) 02/11/18 18:22 Albumin 3.7 g/dL (3.4-4.8) 02/11/18 18:22 Urine Ketones Negative mg/dL (Negative) 02/11/18 21:05 Urine Blood Large (Negative) H 02/11/18 21:05 Urine Nitrite Negative (Negative) 02/11/18 21:05 Ur Leukocyte Esterase Moderate (Negative) H 02/11/18 21:05 Urine RBC GREATER THAN 50-TNTC HPF (0-3) H 02/11/18 21:05 Urine WBC 21-50 HPF (0-3) H 02/11/18 21:05 Ur Squamous Epith Cells None Seen HPF (0-3) 02/11/18 21:05 Urine Bacteria None Seen HPF (None Seen) 02/11/18 21:05 FMR H&P: A/P - Problem List (1) Respiratory distress Current Visit: Yes Status: Acute Code(s): R06.03 - ACUTE RESPIRATORY DISTRESS (2) Hypotension Current Visit: Yes Status: Acute (3) Total knee replacement status Current Visit: No Status: Acute Code(s): Z96.659 - PRESENCE OF UNSPECIFIED ARTIFICIAL KNEE JOINT (4) History of prostate cancer Current Visit: No Status: Acute Code(s): Z85.46 - PERSONAL HISTORY OF MALIGNANT NEOPLASM OF PROSTATE (5) Diabetes mellitus Current Visit: No Status: Acute Code(s): E11.9 - TYPE 2 DIABETES MELLITUS WITHOUT COMPLICATIONS Qualifiers: Diabetes mellitus type: type 2 Diabetes mellitus complication status: without complication (6) Hypertension Current Visit: No Status: Acute Code(s): I10 - ESSENTIAL (PRIMARY) HYPERTENSION (7) Neutropenia Current Visit: Yes Status: Acute Code(s): D70.9 - NEUTROPENIA, UNSPECIFIED - Plan 1. respiratory distress - suspect PE, inadequate CTA. - therapeutic lovenox - repeat CTA - RLE doppler to evalute increased swelling and possible DVT - O2 PRN 2. hypotension - possibly 2/2 PE - bolus 1 L NS 3. s/p total knee replacement - unlikely infectious complication - increased coagulation 4. prostate CA - increased coagulation 5. DMII - continue home meds 6. Hypertension, chronic - hold home meds 7. neutropenia -evaluate for cause - repeat CBC in AM, peripheral smear Disposition/LOS: treat for suspected PE, monitor respiratory status closely on tele FMR H&P: Upper Level - Pertinent history 72M presents for sudden onset sob. 3 week prior, he had 3t knee surgery. He has no issue since then. Today, he was having dinner when he had sudden SOB, associated with chills. He specifically denies fever, chest pain, abd pain. He went to ER. Currently his SOB has not improved. He is on RA, receive 3 L NS, and gentamicin due to concern of UTI, based on UA finding. - Pertinent findings Gen: Alert, oriented HEENT: Moist mucosal membrane Resp: Mild crackles in lung base, expiratory wheeze, appear to have increased work of breathing. CV: Difficult ausculation but appear RRR with no m/g/r Ext: 1+ pitting edema to mid el D-dimer 7.7 CTA: Inadequate read, no PE seen CXR: No acute cardiopulm process WBC: 1.4 Trop: 0.01 Lactic acid 2.4 - Plan Date/Time: 02/11/18 2151 I, [Francisco So], have evaluated this patient and agree with findings/plan as outlined by chemist intern resident. Pertinent changes/additions are listed here. 1. Pulmonary embolism - Can not rule out PE due to recent history and inadequate CTA with elevate d- dimer. Other dx to consider, pneumonia, ACS, CHF. Lab and imaging do not support these results at this time - Plan for therapeutic lovenox, doppler of LE, repeat CTA - For hypotension, fluid resuscitation, pressors as needed. - Transition patient to NC, and then to bipap as needed. Patient expressed that he does not desire intubation. 2. Sepsis secondary to urinary infection vs rt knee implant. Doubt rt knee implant at this time due to wound appearing clean and healing. UA shows no bacteria and large RBC, but also had some WBC and leukocyte esterase - Can not rule out sepsis in light of persistent hypotension, tachycardia and new neutropenia - Broad spectrum abx, vanc, ceftriaxone and gentamicin. Repeat lactic acid. - Fluid as above. Hold home BP med 3. Neutropenia - Obtain peripheral smear - Repeat CBC - Unknown cause. May be lab error. He recently started naproxsyn post surgery which may cause some degree of neutropenia. Also takes lisinopril 4. HTN - Hold medication at this time 5.DM2 - SSI 6. Hypomagnesemia - Replete magnesium Attending Addendum - Attending Addendum Date/Time: 02/12/18 4640 I personally evaluated the patient and discussed the management with Dr. Mac. I agree with the History, Examination, Assessment and Plan documented above with any addition or exceptions noted below. The patient presented to the ER with sudden onset of shortness of breath while at dinner. He had a knee replacement about 3 weeks ago and had been doing well up until last night. She states he hadn't complained of anything. It was thought pt could have a PE. CTA chest was not adequate to definitively rule out PE. He is on therapeutic lovenox at this time. Getting lower extremity dopples. The patient's hypoxic respiratory failure worsened requiring bipap. Pt also became hypotensive and is now on levophed after getting a central line. Pt's WBC count is low at 1.7. Pt's UA indicates a possible source of infection. Pt's right knee is also warm but not erythematous. Pt will be on broad spectrum antibiotics. May need ortho to evaluate the pt's knee. Will consult Dr. Lainez. Pt received 4 liters of IV fluid in the ER. Lactate is over 4. Will give another 1 liter NS bolus.
[2018-02-12] MEDS ORDERED: SODIUM CHLORIDE 0.9% IVPB SCH (01:00)
[2018-02-12] MEDS ORDERED: GENTAMICIN SULFATE IVPB SCH (01:00)
[2018-02-12] MEDS ORDERED: Albuterol Sulfate 2.5 mg/3 ml Neb ONE (01:31)
[2018-02-12] MEDS ORDERED: Norepinephrine 8 MG/0.9% NS 250 ML ONE (01:37)
[2018-02-12 02:56] LABS: Actual Bicarbonate (HCO3a) 15.4 mEq/L (22-28); Analyzer IN Cardio ER; Base Excess (BEa) -7.7 mEq/L (-2.0 to +3.0); Carboxyhemoglobin (COHb) 0.4 gm% (0.0-3.0); Hemoglobin (Hb) 10.5 g/dL (14.0-18.0); O2 Tension (PaO2) 67.5 mmHg (> 70.0); Potassium - ABG Lab 3.79 mmol/L (3.70-5.30); pH, Arterial 7.42 (7.35-7.45)
[2018-02-12 03:03] LABS: CO2 Tension 24.5 mmHg (35.0-45.0)
[2018-02-12 03:04] LABS: ALV-art Gradient 72.995 (0-20); Puncture Site RBA
[2018-02-12] MEDS ORDERED: Lorazepam 2 MG/ML VIAL ONE (03:13)
[2018-02-12] MEDS ORDERED: Gentamicin 20 MG/2 ML PF (Neonates) IVPB SCH (04:00)
[2018-02-12] MEDS ORDERED: cefTRIAXone\\ROCEPHIN 2 GM in Sodium Chloride 0.9% 100 ML IVPB SCH (04:00)
[2018-02-12 04:05] LABS: Lactic Acid 4.3 mmol/L (0.5-2.2)
[2018-02-12] MEDS: Sodium Chloride 0.45% 1,000 ML IV SCH ×3 (04:30→17:06)
[2018-02-12] MEDS ORDERED: Sodium Chloride 0.9% 1,000 ML IV SCH (05:45)
[2018-02-12] MEDS: Piperacillin/Tazobactam 3.375 GM in Sodium Chloride 0.9% 100 ML IVPB SCH ×3 (05:51→16:27)
--- NOTE | 2018-02-12 06:18 | PDOC.FM ---
- Subjective Subjective: 77 yo male seen at bedside this am. Patient is disoriented and confused on BIPAP. No family is available for interview. Per Nursing Staff, patient has a tender, warm knee and has been confused all night long. No other history able to be obtained - Objective Vital Signs & Weight: Vital Signs (12 hours) Pulse 02/12/18 04:07 95 Weight Weight 142.8 kg Most Recent Monitor Data Heart Rate from ECG 92 NIBP 76/49 NIBP BP-Mean 58 Respiration from ECG 21 SpO2 100 I&O: 02/10/18 02/11/18 02/12/18 06:59 06:59 06:59 Output Total 40 Balance -40 Result Diagrams: 02/11/18 18:22 02/11/18 18:22 <Álvaro Mcgee - Last Filed: 02/12/18 07:50> - Objective Vital Signs & Weight: Vital Signs (12 hours) Temp Pulse Pulse Ox 02/12/18 15:04 90 02/12/18 12:46 88 02/12/18 11:00 98 F 02/12/18 08:00 100 02/12/18 07:27 89 02/12/18 07:00 97.7 F 02/12/18 04:07 95 02/12/18 04:00 98.1 F 100 Weight Weight 142.8 kg Most Recent Monitor Data Heart Rate from ECG 91 NIBP 85/49 NIBP BP-Mean 61 Respiration from ECG 34 SpO2 99 I&O: 02/11/18 02/12/18 02/13/18 06:59 06:59 06:59 Intake Total 1385 Output Total 40 210 Balance 1345 -210 Result Diagrams: 02/11/18 18:22 02/11/18 18:22 <Kika Messina - Last Filed: 02/12/18 15:59> Phys Exam - Physical Examination Constitutional: NAD BIPAP in place bilateral crackles at the bases Cardiovascular: RRR, no significant murmur Gastrointestinal: soft, non-tender, no distention, positive bowel sounds Musculoskeletal: no edema, pulses present Edema and warmth to right knee Neurological: moves all 4 limbs Deviation from normal: Confused A&O x1 Skin: no rash <Álvaro Mcgee - Last Filed: 02/12/18 07:50> Dx/Plan (1) Respiratory distress Code(s): R06.03 - ACUTE RESPIRATORY DISTRESS Status: Acute (2) Sepsis Code(s): A41.9 - SEPSIS, UNSPECIFIED ORGANISM Status: Acute (3) Hypotension Status: Acute (4) Neutropenia Code(s): D70.9 - NEUTROPENIA, UNSPECIFIED Status: Acute (5) Diabetes mellitus Code(s): E11.9 - TYPE 2 DIABETES MELLITUS WITHOUT COMPLICATIONS Status: Acute Qualifiers: Diabetes mellitus type: type 2 Diabetes mellitus complication status: without complication (6) History of prostate cancer Code(s): Z85.46 - PERSONAL HISTORY OF MALIGNANT NEOPLASM OF PROSTATE Status: Acute (7) Hypertension Code(s): I10 - ESSENTIAL (PRIMARY) HYPERTENSION Status: Acute (8) Total knee replacement status Code(s): Z96.659 - PRESENCE OF UNSPECIFIED ARTIFICIAL KNEE JOINT Status: Acute Qualifiers: Laterality: bilateral Qualified Code(s): Z96.653 - Presence of artificial knee joint, bilateral (9) Infected prosthetic knee joint Code(s): T84.59XA - INFECT/INFLM REACTION DUE TO OTH INTERNAL JOINT PROSTH, INIT ; Z96.659 - PRESENCE OF UNSPECIFIED ARTIFICIAL KNEE JOINT Status: Acute - Plan Plan: 1. Respiratory distress - Inadequate CTA, will consider repeating - Elevated D-dimer - Rule out other causes such as pneumonia, ACS, CHF - Therapeutic lovenox currently - Elevated BNP will consider cardiac etiology as well - O2 supplementation as needed, currently on BIPAP - Patient states NO intubation 2. Sepsis secondary to suspected orthopedic prosthetic infection - Persistent Hypotension, tachycardia and new neutropenia - Broad spectrum antibiotics: Vanc, Ceftriaxone, Gentamycin - IVF - Home BP meds held at this time. 3. Recent Total knee replacement on Right with suspected infection - could be cause of hypercoagulability - on exam knee is warm and tender - Will order stat XR - Will consult Orthopedics, appreciate Dr. Wong recommendations. 4. Neutropenia - Obtain peripheral smear - Repeat CBC - Unknown cause. - Will review home medications for possible causes - Neutropenic precautions considered 5. HTN - Hold medication at this time 6.DM2 - SSI 7. Hypomagnesemia - Replete magnesium 8. Hx of Prostate Cancer - Could be cause of hypercoagulability Disposition: Guarded, will continue current plan of care and gather more information. <Álvaro Mcgee - Last Filed: 02/12/18 07:50> (1) Respiratory distress Code(s): R06.03 - ACUTE RESPIRATORY DISTRESS Status: Acute (2) Hypotension Status: Acute (3) Total knee replacement status Code(s): Z96.659 - PRESENCE OF UNSPECIFIED ARTIFICIAL KNEE JOINT Status: Acute Qualifiers: Laterality: bilateral Qualified Code(s): Z96.653 - Presence of artificial knee joint, bilateral (4) History of prostate cancer Code(s): Z85.46 - PERSONAL HISTORY OF MALIGNANT NEOPLASM OF PROSTATE Status: Acute (5) Diabetes mellitus Code(s): E11.9 - TYPE 2 DIABETES MELLITUS WITHOUT COMPLICATIONS Status: Acute Qualifiers: Diabetes mellitus type: type 2 Diabetes mellitus complication status: without complication (6) Hypertension Code(s): I10 - ESSENTIAL (PRIMARY) HYPERTENSION Status: Acute (7) Neutropenia Code(s): D70.9 - NEUTROPENIA, UNSPECIFIED Status: Acute <Kika Messina - Last Filed: 02/12/18 15:59> Attending Addendum - Attending Addendum Date/Time: 02/12/18 0557 I personally evaluated the patient and discussed the management with Dr. Mcgee. I agree with the History, Examination, Assessment and Plan documented above with any addition or exceptions noted below. The patient is still confused on bipap. This morning his right knee is warm, tender and mildly erythematous. Will discuss with ortho. Giving another 1 liter bolus of fluids. LE dopplers pending. Continue broad spectrum antibiotics with vanc and zosyn. Cultures are pending. <Kika Messina - Last Filed: 02/12/18 15:59>
[2018-02-12] MEDS ORDERED: Naproxen 500 MG TAB PO PRN (07:09)
--- NOTE | 2018-02-12 08:02 | RAD ---
RIGHT KNEE 2 VIEWS: Date: 02/12/18 HISTORY: Right knee pain. FINDINGS/IMPRESSION: There are postop changes of total knee arthroplasty in good position and alignment. No fracture, disl ocation, or bony destruction is seen. No periprosthetic lucencies are identified to suggest loosening . POS: [facility]
[2018-02-12 08:03] LABS: Actual Bicarbonate (HCO3a) 15.8 mEq/L (22-28); Base Excess (BEa) -7.4 mEq/L (-2.0 to +3.0); Calcium, Ionized 1.06 mmol/L (1.12-1.30); Carboxyhemoglobin (COHb) 1.2 gm% (0.0-3.0); Hemoglobin (Hb) 10.4 g/dL (14.0-18.0); O2 Tension (PaO2) 105.3 mmHg (> 70.0); Potassium - ABG Lab 3.75 mmol/L (3.70-5.30); pH, Arterial 7.41 (7.35-7.45)
[2018-02-12 08:07] LABS: CO2 Tension 25.4 mmHg (35.0-45.0); Puncture Site LRA
[2018-02-12] MEDS ORDERED: Lidocaine 1% (PF) 30 ML VIAL ONE (08:28)
--- NOTE | 2018-02-12 08:51 | RAD ---
PORTABLE CHEST 1 VIEW: Date: 02/12/18 Time: 0241 hours HISTORY: Central line placement. FINDINGS/IMPRESSION: There has been interval placement of a left internal jugular central line with tip in the projection of the brachiocephalic with the SVC. No pneumothorax is seen. POS: [facility]
[2018-02-12] MEDS ORDERED: Non-Formulary Item 1 EACH (Cholecalciferol (Vitamin D3) [Vitamin D3] 1,000 UNIT) PO SCH (09:00)
[2018-02-12] MEDS ORDERED: Enoxaparin Sodium 120 MG/0.8 ML SYRINGE SC SCH (09:00)
[2018-02-12] MEDS ORDERED: Tamsulosin HCl 0.4 MG CAP PO SCH (09:00)
[2018-02-12] MEDS ORDERED: Prevnar 13-Val Conj/PF 0.5 ML SYRINGE IM ONE (09:00)
[2018-02-12] MEDS: Aspirin 81 mg Enteric Coated Tablet PO SCH ×2 (09:53→21:38)
[2018-02-12] MEDS: metFORMIN 500 MG TAB PO SCH ×2 (09:54→21:38)
[2018-02-12] MEDS: Tamsulosin HCl 0.4 MG CAP PO SCH (09:54)
--- NOTE | 2018-02-12 10:44 | ULT ---
BILATERAL LOWER EXTREMITY VENOUS DOPPLER ULTRASOUND: Date: 02/12/18 HISTORY: Bilateral lower extremity edema and pain, shortness of breath. TECHNIQUE: Suarez scale ultrasound with color flow and spectral Doppler imaging of the deep venous systems of the lower extremities was performed bilaterally. FINDINGS: There is good flow, compression, and augmentation noted in the common femoral, femoral, deep femoral, popliteal, posterior tibial, and greater saphenous veins on either side. IMPRESSION: No evidence of deep venous thrombosis in either lower extremity. POS: [facility]
[2018-02-12] MEDS: Norepinephrine 8 MG/0.9% NS 250 ML IVPB SCH ×3 (12:45→21:38)
--- NOTE | 2018-02-12 13:50 | CON ---
DATE OF CONSULTATION: 02/12/2018 REQUESTING PHYSICIAN: Dr. George Mac. BRIEF HISTORY OF PRESENT ILLNESS: Mr. Holloway is a pleasant 77-year-old gentleman who was examined i n his intensive care unit bed with his at bedside. He presented to the emergency room on the mo rning of 02/12/2018 with the onset of shortness of breath as well as chills. They report that while sitting down for dinner on the evening of 02/11/2018, he developed the sudden onset of chest discomfo rt. The patient is status post right total knee arthroplasty on 01/23/[address] Rubin Nichols. Work up included a venous ultrasound that showed no evidence of lower extremity deep venous thrombosis. A CT angiogram that did not show a clot in the large vessels, although due to patient movement artifac t, a definitive statement could not be made with respect to peripheral emboli. The patient was found to have white count of 1.4, hematocrit of 35 and 216,000 platelets. He did have blood cultures draw n and these have grown out a gram negative diana yet to be identified. With the recent total knee arth roplasty surgery, orthopedic consultation was requested to rule out a septic knee. The patient did h ave a urinalysis that was very suspicious for possible UTI. PAST MEDICAL HISTORY: Includes diabetes, hypertension, history of prostate cancer, and nephrolithias is. PAST SURGICAL HISTORY: Includes knee replacement surgery, shoulder surgery, and retinal surgery. FAMILY HISTORY: Unremarkable. SOCIAL HISTORY: No tobacco use. REVIEW OF SYSTEMS: Shows a gentleman who does report some fevers and chills over the last 24 hours. He also reports some chest pain and shortness of breath at rest. He denies numbness or tingling in the lower extremity. PHYSICAL EXAMINATION: GENERAL: He is found to have temperature of 97.7 at the time of evaluation. He was found to have a heart rate of 89. He is found to have a blood pressure of 87/55. In general, the patient is found to be short of breath at rest with O2 saturations in the 80% range w hen attempting to breath just room air. Otherwise, he is awake, alert, and oriented and again his wi fe is at bedside. Orthopedic examination is limited to this right lower extremity. He is found to h ave an atraumatic hip, ankle and foot. The knee is remarkable for a healed midline anterior knee inc ision. There is perhaps a trace effusion within the knee, but very minimal. There is no erythema, n o increased warmth of the knee. Passively and actively, patient is able to range his knee from full extension to about 80 degrees of flexion with minimal discomfort. His calf is soft and nontender. T here is no pain with passive stretch of the toes or ankle. He has intact subjective sensation distal ly. ASSESSMENT: At this time, I do not see any evidence for a septic joint. I was prepared to proceed w ith an aspirate of the knee; however, I do not see any indication for this procedure given the comple te benign nature of this gentleman's knee exam. Given the recent blood cultures positive for gram ne gative diana, I do believe that further workup of his urinary tract is warranted and treatment appropri ate for possible UTI. PLAN: At this time, we will follow patient expectantly from an orthopedic standpoint. I do not see any evidence for a septic knee at this time. I have spoken with Dr. Rubin Nichols regarding Mr. Yunior galeana's admission and my clinical assessment. Dr. Nichols will be following Mr. Holloway while he is in the hospital.
[2018-02-12] MEDS ORDERED: Haloperidol Lactate 5 MG/ML VIAL SLOW IVP SCH (21:00)
[2018-02-12] MEDS ORDERED: Non-Formulary Item 1 EACH (Magnesium [Magnesium] 250 MG) PO SCH (21:00)
[2018-02-12] MEDS ORDERED: glipiZIDE 5 MG TAB PO SCH (21:00)
[2018-02-12] MEDS: glipiZIDE 10 MG TAB PO SCH (21:38)
[2018-02-12] MEDS: Magnesium Oxide 250 MG TAB PO SCH (21:39)
--- NOTE | 2018-02-12 23:55 | CON ---
DATE OF CONSULTATION: 02/12/2018 HISTORY OF PRESENT ILLNESS: Mr. Holloway is a gentleman who recently underwent knee replacement. He presented with a febrile illness. He also has associated shortness of breath. A CT pulmonary angiogram that did not show embolic disease. He had blood cultures drawn and he was started on antibiotics. He is growing 2/ 2 gram negative rods. His urine culture is negative at 12 hours. Urine was collected at 4:45 in the morning. Blood cultures were collected at 18:22. I suspect antibiotics were already on board when the urine was collected. PAST MEDICAL HISTORY: Remarkable for diabetes, hypertension, prostate cancer, nephrolithiasis, retinal detachment, knee and shoulder surgery in the past. FAMILY HISTORY: Negative for lung disease in early age. SOCIAL HISTORY: Nonsmoker, nondrinker, nondrug user. REVIEW OF SYSTEMS: 10 point review of system completed, otherwise negative. ALLERGIES: He has no drug allergies. PHYSICAL EXAMINATION: GENERAL: He was in no distress when I saw him this morning. VITAL SIGNS: Blood pressure 99/65, heart rate is 90. He is afebrile, respiratory rate was in the 20s to low 30s. HEENT: Pupils are equal. Sclerae is anicteric. NECK: Supple. LUNGS: Clear. HEART: Regular rhythm. S1 and S2 are normal. ABDOMEN: Soft and nontender. EXTREMITIES: No clubbing, cyanosis, or edema. Blood pressure this afternoon was 96/72. LABORATORY DATA: White count is 1.4, hemoglobin 11.6, no manual differential. Electrolytes were normal last night. No lab today. Lactic acid level last night was 6.4. Urinalysis showed too numerous to count red cells, 21-50 white cells. His right knee was little warmer than his left, but the orthopedic surgeon saw him this morning did not feel he had an infected knee. IMPRESSION: Probable urinary tract sepsis/prostatitis. PLAN: IV antimicrobial therapy, volume resuscitation remain in the critical care unit. We will be happy to follow with the other physician's caring for him. This is a 70-minute consult, with greater than 50% of the time was spent on unit in coordinating care. DIANELYS
[2018-02-13] MEDS: Piperacillin/Tazobactam 3.375 GM in Sodium Chloride 0.9% 100 ML IVPB SCH ×3 (00:17→12:32)
[2018-02-13] MEDS ORDERED: GENTAMICIN SULFATE IVPB SCH (01:00)
[2018-02-13] MEDS ORDERED: SODIUM CHLORIDE 0.9% IVPB SCH (01:00)
[2018-02-13] MEDS: Sodium Chloride 0.45% 1,000 ML IV SCH ×3 (01:00→16:36)
[2018-02-13] MEDS: Haloperidol Lactate 5 MG/ML VIAL IM PRN (01:55)
[2018-02-13] MEDS: Norepinephrine 8 MG/0.9% NS 250 ML IVPB SCH ×3 (01:56→23:21)
[2018-02-13] MEDS ORDERED: Amiodarone HCl 150 MG, Admixture Fee 1 EACH in Dextrose 5% in Water 100 ML IVPB SCH (03:15)
[2018-02-13] MEDS: Amiodarone HCl 450 MG, Admixture Fee 1 EACH in Dextrose 5% in Water 250 ML IVPB SCH ×2 (03:17→09:50)
[2018-02-13 06:06] LABS: ALT (SGPT) 30 U/L (8-55); AST (SGOT) 20 U/L (5-34); Albumin 2.9 g/dL (3.4-4.8); Alkaline Phosphatase 69 U/L (40-150); Anion Gap 13 mmol/L (10-20); BUN (Urea Nitrogen) 39 mg/dL (8.4-25.7); Bilirubin, Total 1.1 mg/dL (0.2-1.2); Calc. Creatinine Clearance 57 mL/min (70-130); Calcium 7.6 mg/dL (7.8-10.44); Carbon Dioxide 18 mmol/L (23-31); Chloride 109 mmol/L (98-107); Estimated GFR-MDRD 29; Globulin 2.9 g/dL (2.4-3.5); Glucose 111 mg/dL (83-110); Protein, Total 5.8 g/dL (5.8-8.1); Sodium 136 mmol/L (136-145)
--- NOTE | 2018-02-13 06:26 | PDOC.FM ---
- Subjective Subjective: 77 yo male seen at bedside this morning. Patient is alert and oriented x3 today. This is great improvement from yesterday. Patient states he is a little short of breath. Patient denies chest pain, abdominal pain, n/v/d, fevers, chills, or rashes. Patient states that he doesn't remember much of the last couple of days. Patient does not have any family at bedside this morning and no other history is able to be obtained. No other complaints today. - Objective Vital Signs & Weight: Vital Signs (12 hours) Temp Pulse Pulse Ox 02/13/18 04:00 99.0 F 02/13/18 02:23 120 H 02/13/18 00:00 98.5 F 02/12/18 23:04 98 02/12/18 19:20 92 Weight Admit Weight 142.8 kg Weight 146.1 kg Most Recent Monitor Data Heart Rate from ECG 108 NIBP 85/59 NIBP BP-Mean 67 Respiration from ECG 24 SpO2 99 I&O: 02/11/18 02/12/18 02/13/18 06:59 06:59 06:59 Intake Total 1385 4729 Output Total 40 900 Balance 1345 3829 Result Diagrams: 02/13/18 05:10 02/13/18 05:10 Phys Exam - Physical Examination Constitutional: NAD HEENT: moist MMs Central line in place Respiratory: no wheezing, clear to auscultation bilateral Cardiovascular: no significant murmur irregularly irregular Gastrointestinal: soft, non-tender, no distention, positive bowel sounds Musculoskeletal: pulses present Pitting edema to right lower extremity below knee Neurological: moves all 4 limbs Psychiatric: A&O x 3 Dx/Plan (1) Respiratory distress Code(s): R06.03 - ACUTE RESPIRATORY DISTRESS Status: Acute (2) Sepsis Code(s): A41.9 - SEPSIS, UNSPECIFIED ORGANISM Status: Acute (3) Hypotension Status: Acute (4) Neutropenia Code(s): D70.9 - NEUTROPENIA, UNSPECIFIED Status: Resolved (5) Atrial fibrillation with RVR Code(s): I48.91 - UNSPECIFIED ATRIAL FIBRILLATION Status: Acute (6) Diabetes mellitus Code(s): E11.9 - TYPE 2 DIABETES MELLITUS WITHOUT COMPLICATIONS Status: Acute Qualifiers: Diabetes mellitus type: type 2 Diabetes mellitus complication status: without complication (7) History of prostate cancer Code(s): Z85.46 - PERSONAL HISTORY OF MALIGNANT NEOPLASM OF PROSTATE Status: Acute (8) Hypertension Code(s): I10 - ESSENTIAL (PRIMARY) HYPERTENSION Status: Acute (9) Total knee replacement status Code(s): Z96.659 - PRESENCE OF UNSPECIFIED ARTIFICIAL KNEE JOINT Status: Acute Qualifiers: Laterality: bilateral Qualified Code(s): Z96.653 - Presence of artificial knee joint, bilateral - Plan Plan: 1. Respiratory distress - Likely secondary to Gram negative septicemia - Inadequate CTA, will consider repeating - Doppler US negative for DVT - Elevated D-dimer - Rule out other causes such as pneumonia, ACS, CHF - Elevated BNP will consider cardiac etiology as well - O2 supplementation as needed, currently on NC @ 3L - BIPAP as needed 2. Sepsis secondary to UTI - Persistent Hypotension, tachycardia and new neutropenia - Broad spectrum antibiotics: Vanc, Ceftriaxone, Gentamycin - IVF @ 125 - Levaphed ordered and at 20 mcg - Home BP meds held at this time. - Will rule out nephrolithiasis with renal US due to Creatinine increase 3. Recent Total knee replacement on right. - Will consult Orthopedics, appreciate Dr. Wong recommendations. - Dr. Wong states no infection and benign knee exam 4. Neutropenia - Resolved - WBC this AM 18.9 - Repeat CBC - Unknown cause. - Will review home medications for possible causes - Neutropenic precautions considered 5. Atrial fibrillation with RVR - New onset around 0300 this AM - Amiodarone loading dose and currently on 1 mg/min drip - Consider Cardiology consultation 6. MEGHA - Likely secondary to infection - IVF - Monitor BMP #. HTN - Hold medication at this time #.DM2 - SSI #. Hypomagnesemia - Replete magnesium #. Hx of Prostate Cancer - Could be cause of infection UTI vs prostatitis Disposition: Guarded, will continue current plan of care and gather more information.
[2018-02-13 06:52] LABS: Hemoglobin 9.4 g/dL (14.0-18.0); Mean Corpuscular HGB CONC 32.4 g/dL (32.0-36.0); Mean Corpuscular Hemoglobin 31.7 pg (27.0-31.0); Mean Corpuscular Volume 97.8 fL (78.0-98.0); Mean Platelet Volume 7.9 fL (7.4-10.4); Platelet Count 127 thou/uL (130-400); RBC Distribution Width 13.1 % (11.5-14.5); Red Blood Cell (RBC) Count 2.98 mill/uL (4.70-6.10); White Blood Cell (WBC) Count 18.9 thou/uL (4.8-10.8)
[2018-02-13 07:41] LABS: Band 16 % (5-11); Lymphocytes 8 % (21-51); MDiff Complete? YES; Metamyelocyte 2 % (0-0); Monocytes 4 % (0-10); Neutrophil 70 % (42-75); PLT Morphology Comment Appears Decreased; Polychromasia SLIGHT = 2-3 cells (100X) (0-2/hpf)
[2018-02-13] MEDS: metFORMIN 500 MG TAB PO SCH ×2 (08:32→21:35)
[2018-02-13] MEDS: Tamsulosin HCl 0.4 MG CAP PO SCH (08:32)
[2018-02-13] MEDS: Aspirin 81 mg Enteric Coated Tablet PO SCH ×2 (08:33→21:34)
[2018-02-13] MEDS: Enoxaparin Sodium 40 MG/0.4 ML SYRINGE SC SCH (08:33)
--- NOTE | 2018-02-13 09:10 | ULT ---
RENAL ULTRASOUND: Indication: Rule out nephrolithiasis. Comparison: CT of the abdomen and pelvis with and without IV contrast, 09-07-16. FINDINGS: The right kidney measures 12.5 x 6.0 x 6.3 cm. The left kidney measures 13.5 x 6.3 x 6.4 cm. There is a 4.6 cm cystic abnormality seen within the le ft mid kidney, likely related to a prominent peripelvic cyst seen on the CT evaluation of 09-07-16. The bladder is decompressed with a Greenberg catheter. IMPRESSION: Stable 4.6 cm left peripelvic renal cyst. No hydronephrosis demonstrated. POS: [facility]
--- NOTE | 2018-02-13 09:34 | CT ---
CT ABDOMEN AND PELVIS NONCONTRAST: History: Sepsis. Urinary tract stones. Comparison: 09-07-17 FINDINGS: Each renal collecting system and ureter are upper limits of normal in caliber. At the right ureterove sicular junction, a 0.6 cm calculus is present. Two additional much smaller calcifications are presen t within the distal right ureter, stacked behind the larger UVJ calcification. Lobular calcification superior pole right kidney is 1.3 cm. Tiny calcifications are present within no ndilated calices of the left kidney. Lack of contrast limits evaluation for other abnormalities. There is minimal bilateral pleural fluid with mild bibasilar atelectasis. Liver is diffusely hypodense. Gallbladder is slightly distended. La rge cysts superior pole of left kidney is again demonstrated. There is prominent calcification throug hout the arterial structures. Small hiatal hernia. Degenerative changes lumbar spine. Greenberg catheter decompresses the urinary bladder. Rectal diverticulum is less pronounced than on the prior study. Met allic seeds at the prostate bed. Within the retroperitoneum, subtle stranding is noted but favored to be not significant given the str anding within the retroperitoneal fat of each paracolic gutter. IMPRESSION: 1. Minimal if any obstruction at distal right ureteral calcifications measuring up to 0.6 cm at the u reterovesicular junction. 2. Additional nonobstructing bilateral renal calculi measuring up to 1.3 cm at the superior pole righ t kidney. 3. Bibasilar lung atelectasis. Minimal bilateral pleural fluid . 4. Hepatosteatosis. 5. Atherosclerosis. POS: [facility]
[2018-02-13] MEDS ORDERED: Iothalamate Meglumine 60% 50 ML VIAL FS ONE (09:47)
[2018-02-13] MEDS ORDERED: Fentanyl 100 MCG/2 ML VIAL ONE (09:53)
--- NOTE | 2018-02-13 10:34 | PRG ---
DATE OF SERVICE: 02/13/2018 Mr. Holloway is still confused. He had atrial fibrillation which responded to amiodarone last night. He is still agitated and tachypneic. He will not wear BiPAP or CPAP. He did not have an acid base disorder yesterday, but he still looks ill. PHYSICAL EXAMINATION: LUNGS: His lungs are clear. HEART: Regular rhythm. ABDOMEN: Abdomen is soft. EXTREMITIES: His knee is unchanged. LABORATORY DATA: White count 18.9, hemoglobin 9.4, platelets 127,000. Sodium 136, potassium 4, chloride 109, bicarbonate 18, BUN 39, creatinine 2.23. Creatinine was 1.11 yesterday. Intake and output is positive 3859. Renal ultrasound done this morning shows no hydronephrosis. He is a patient of Dr. Hahn's and I contacted Dr. Hahn who informed me he has had kidney stones in the past. He also probably has a recurrence of prostate cancer. Dr. Hahn recommended a noncontrast stone protocol CT which did show distal ureteral stones on the right just above the junction of the bladder. He had stranding adjacent to his left kidney which could be worrisome for recent passage of a stone and pyelonephritis. Dr. Hahn plans to take him for cystoscopy and stent placement today. I have recommended that we leave him intubated after that until we are sure he is medically stable. His neutropenia yesterday was likely a negative prognostic sign regarding the severity of his sepsis. His increase in his white count is a positive sign. Hopefully, with his bacteremia he will not seed his new artificial joint. He is growing E. coli out of his blood. His urine culture was negative, but I suspect it is negative because it was drawn much later than the blood cultures. Critical care time was 30 minutes. [facility]
[2018-02-13] MEDS ORDERED: Propofol 1,000 MG/100 ML VIAL IV ONE (11:21)
--- NOTE | 2018-02-13 11:31 | CON ---
DATE OF CONSULTATION: 02/13/2018 HISTORY OF PRESENT ILLNESS: This is a 77-year-old white male who was admitted 2 nights ago, I think on Tuesday evening or actually Tuesday evening. He went out to eat with his . While out to eat he had chills and rigors that she noticed. She brought him right over to the hospital. He was havin g some shortness of breath and there was an initial concern that he was possibly having a PE as he diane d a knee replacement done on 01/23/2018. Workup for that did not show any evidence of PE on the CT a ngio or DVT on ultrasound of the leg. He was found to have a very low white blood cell count, he had a low blood pressure. He had a urinalysis that showed many white cells and red cells, did not have any bacteria. He had blood cultures drawn that have grown out E. coli. The sensitivities are pendin g. A urine culture was sent after that time, he had probably received antibiotics in the ER, that is no growth at [address] He had a [address] stone protocol done this morning. He does not have hydro. He h as got a right renal stone. He has got a left renal cyst. He has got a 6 mm right distal ureteral s tone with a couple of much smaller stones just cephalad to this. He does not have any significant hy dronephrosis. On talking to him, he is a little bit confused, but says he has not had any flank pain over the last few days he has not been having gross hematuria or dysuria. He does currently have a Greenberg catheter in. He is currently also on Levophed to help control his blood pressure. He is on [employer] ntamicin and Zosyn currently. He received vancomycin in the emergency department. His creatinine wa s normal when he came in, but it is actually increased on today's exam. PAST MEDICAL HISTORY: Diabetes, high blood pressure, prostate cancer status post brachytherapy and a long history of stones. PAST SURGICAL HISTORY: Includes knee replacements bilaterally, the last was about 3 weeks ago. He h as had shoulder surgeries, retinal surgery and he has had urinary tract stone surgery. PHYSICAL EXAMINATION: ABDOMEN: Obese. GENITOURINARY: His flanks are nontender. Catheter is indwelling. IMPRESSION: Sepsis with a gram negative diana with the urine that is suspicious for infection and a cu lture of the urine probably will not necktie turner positive because of the use of antibiotics prior to get ting the culture. The CAT scan shows he has distal ureteral stone, not much hydro, but in the settin g of sepsis with a distal ureteral stone. He needs emergent cystoscopy and stent placement. We will place a stent on the right. There was some evidence of some perivesicular and periureteral inflamma tion and I do not think there is anything suggesting an obstructive process on the left side, but we will see what things look like when we do the cystoscopy in just a few minutes.
[2018-02-13 11:47] LABS: Actual Bicarbonate (HCO3a) 15.9 mEq/L (22-28); Base Excess (BEa) -11.6 mEq/L (-2.0 to +3.0); CO2 Tension 42.7 mmHg (35.0-45.0); Carboxyhemoglobin (COHb) 1.4 gm% (0.0-3.0); Hemoglobin (Hb) 10.9 g/dL (14.0-18.0); O2 Tension (PaO2) 113.3 mmHg (> 70.0)
[2018-02-13 11:57] LABS: ALV-art Gradient 546.325 (0-20); Puncture Site ALINE; pH, Arterial 7.19 (7.35-7.45)
[2018-02-13 12:59] LABS: Vancomycin, Trough 15.5 ug/mL
[2018-02-13 13:22] LABS: ALV-art Gradient 401.075 (0-20); Actual Bicarbonate (HCO3a) 17.5 mEq/L (22-28); CO2 Tension 40.3 mmHg (35.0-45.0); Calcium, Ionized 1.07 mmol/L (1.12-1.30); Carboxyhemoglobin (COHb) 1.3 gm% (0.0-3.0); Hemoglobin (Hb) 10.7 g/dL (14.0-18.0); O2 Tension (PaO2) 83.3 mmHg (> 70.0); Potassium - ABG Lab 3.66 mmol/L (3.70-5.30); Puncture Site ALINE; pH, Arterial 7.26 (7.35-7.45)
--- NOTE | 2018-02-13 13:26 | RAD ---
INTRAOPERATIVE FLUOROSCOPY: HISTORY: Right stent placement. IVP retrograde. FINDINGS: Thirteen fluoroscopic images demonstrate retrograde opacification of the right and left intra- and ex trarenal collecting system. Calculi noted in the distal right ureter appear to be noted as a filling defect on the initial retrog rade image of the right ureter. There is mild narrowing in the distal right ureter overlying the sac rum. A right ureteral stent is placed and appears to be appropriately positioned. Imaging of the left ureter was also performed. There is mild prominence of the visualized mid to dis lexi left ureter as it projects over the left iliac wing. There does appear to be narrowing of the di stal left ureter, short segment in location. IMPRESSION: Fluoroscopy as above. POS: [facility]
--- NOTE | 2018-02-13 13:49 | RAD ---
PORTABLE AP CHEST RADIOGRAPH: Date: 02-13-18 History: Endotracheal tube placement. Comparison: 02-12-18 FINDINGS: A left internal jugular vein central venous catheter is noted in place with the tip overlying the upp er mediastinum. Exact location is difficult to further determine on this exam. Endotracheal tube is n oted in place with the tip overlying the T4 vertebral body and above the level of the jamilah. This ex am is obtained in a shallow breath of inspiration which accentuates the cardiac silhouette and bronch ovascular markings. There is atelectasis present at the left lung base. Degenerative changes are note d in the spine. No other interval change. IMPRESSION: 1. Left internal jugular vein central venous catheter noted in place, the tip of which overlies the u pper mediastinum. The exact location is difficult to confirm. 2. Endotracheal tube noted in place which overlies the T4 vertebral body. 3. Accentuation of bronchovascular markings due to shallow depth of inspiration and portable techniqu e. There is atelectasis at the left lung base. POS: [facility]
[2018-02-13] MEDS ORDERED: Fentanyl BOLUS 250 ML IVPB PRN (15:22)
[2018-02-13] MEDS ORDERED: DISCONTINUE PREVIOUS NARCOTIC PAIN MEDICATIONS AND BENZODIAZEPINES FS SCH (15:22)
[2018-02-13] MEDS ORDERED: Propofol BOLUS 1,000 MG/100 ML VIAL IV PRN (15:22)
[2018-02-13] MEDS ORDERED: fentaNYL Citrate/PF 2,000 MCG in Sodium Chloride 0.9% 60 ML IV SCH (15:22)
[2018-02-13] MEDS: Lorazepam 2 MG/ML VIAL SLOW IVP PRN ×2 (15:38→23:20)
[2018-02-13] MEDS: Propofol 1,000 MG/100 ML VIAL IV PRN (17:54)
[2018-02-13] MEDS: MEROPENEM 1 GM/50 ML 1 GM in Premix Bag 1 BAG IVPB SCH (21:21)
[2018-02-13] MEDS: glipiZIDE 10 MG TAB PO SCH (21:34)
[2018-02-13] MEDS: Magnesium Oxide 250 MG TAB PO SCH (21:34)
--- NOTE | 2018-02-14 00:21 | CON ---
DATE OF CONSULTATION: 02/13/2018 REASON FOR CONSULTATION: Sepsis. HISTORY OF PRESENT ILLNESS: A 77-year-old patient admitted on 02/11/2018 with altered mental status and dyspnea after having completed a right total knee arthroplasty on 01/25/2018. The patient was in his usual state of health until except for the right knee surgery when he presented with acute onset of dyspnea and chills. It is not clear which one started first. According to the emergency room no te, the chills and rigors started before the dyspnea. He had some low back pain, which was sharp, r ated 2/10. He had no headaches, no vision changes, no sore throat, odynophagia, dysphagia, no rhinor jaz, no chest pain, no cough or sputum production. He did not have any abdominal pain or diarrhea. He did have some nausea, no vomiting, no dysuria, no skin rash. PAST MEDICAL HISTORY: Included hypertension, prostate cancer treated with radioactive seed implants, retinal detachment, nephrolithiasis, hyperlipidemia, and recent left knee replacement, right shoulde r surgery. SOCIAL HISTORY: Never a smoker. No drug use. No alcoholic beverage use. ALLERGIES: No known drug allergies. HOME MEDICATIONS: Doxazosin, metformin, aspirin, glipizide, lisinopril, naproxen. CURRENT MEDICATIONS: Medications currently in the hospital include amiodarone, , vitamin D3, Lo venox, fentanyl, glipizide, Haldol, lorazepam, meropenem, metformin, Propofol, tamsulosin. PHYSICAL EXAMINATION: VITAL SIGNS: T-max 99.0, blood pressure 190/70 and then has dropped down to 97/52. HEENT: His pupils are about 1 mm, equal, round shaped. Oral tracheal intubation. LUNGS: Coarse breath sounds with symmetric air entry. HEART: S1, S2, regular rate without murmurs. ABDOMEN: Soft, not distended. Normal bowel sounds are noted. No bladder distention. : The fredy ent has a Greenberg catheter in place. His I's and O's were positive yesterday 3800, they are negative t hus far at 1080. The latest blood pressure 98/63, heart rate 93-104, BP 97/52. No genital abnormali ties noted. EXTREMITIES: The right knee implant site appears without inflammatory changes. The incision is comp letely dry. Pulses are 1+ in dorsalis pedis. NEUROLOGIC: The plantar responses are indifferent. We could not test his movements due to sedation. LABORATORY DATA: White cell count is up from 1.4 to 18.9, hemoglobin 11, platelets 216 down to 127, 70% neutrophils, 16% bands. INR was not done, pH 7.26, pCO2 of 40, pO2 of 83. Sodium 136, creatinin e is up to 2.23. Liver profile normal. Albumin 2.9. Urinalysis with greater than 50 rbc's and 21-5 0 wbc's. Microbiology with E. coli which has an ESBL phenotype from two sets of blood cultures and u rine sample as well. Imaging studies have been discussed above. IMAGING STUDIES: Initially, a CT angio was done which did not show any pulmonary embolism and the ri ght knee did not appear to have any inflammatory changes. Urinalysis was abnormal. He subsequently developed worsening tachypnea. Central line was cannulated. Levophed started. He was then placed o n BiPAP. CT of abdomen and pelvis showed prominent calcification throughout the arterial structures and there is more borderline enlargement of the right and left renal collecting system. There was a 0.6 cm calculus present at the right UV junction. He had a 1.3 cm nonobstructing renal calculi. Thi s was the superior pole of right kidney and has hepatic steatosis. The patient end up being intubate d and placed in the ICU. Urology consulted, and Dr. Hahn has placed a stent to bypass the obstruct ion on the right side. According to the description, the patient had purulent urine coming out throu gh the stent was inserted from the right kidney. The patient is sedated, right now he has left inter nal jugular vein central venous catheter in place, ET tube. ASSESSMENT: Recent total knee replacement with now sepsis syndrome secondary to pyelonephritis with obstruction due to a renal stone. DISCUSSION: The patient has had a stent placement and has an ESBL organism, we will switch him to me ropenem which has been demonstrated to lead to better outcomes compared with Zosyn and a recent cisco estrella trial. Eventually, we will need either to verify the spontaneous extrusion of the stone or lit hotripsy if not. We will need protracted treatment with IV meropenem and we will require PICC line p lacement.
[2018-02-14] MEDS: Propofol 1,000 MG/100 ML VIAL IV PRN ×4 (02:33→22:01)
[2018-02-14] MEDS: Sodium Chloride 0.45% 1,000 ML IV SCH ×4 (02:33→15:12)
[2018-02-14 04:04] LABS: Anion Gap 14 mmol/L (10-20); BUN (Urea Nitrogen) 38 mg/dL (8.4-25.7); Calc. Creatinine Clearance 65 mL/min (70-130); Calcium 8.1 mg/dL (7.8-10.44); Carbon Dioxide 17 mmol/L (23-31); Chloride 111 mmol/L (98-107); Estimated GFR-MDRD 33; Glucose 99 mg/dL (83-110); Potassium 3.8 mmol/L (3.5-5.1); Sodium 138 mmol/L (136-145)
[2018-02-14 04:28] LABS: Band 28 % (5-11); Eosinophils 1 % (0-10); Lymphocytes 6 % (21-51); MDiff Complete? YES; Mean Corpuscular HGB CONC 32.7 g/dL (32.0-36.0); Mean Corpuscular Volume 97.7 fL (78.0-98.0); Mean Platelet Volume 8.1 fL (7.4-10.4); Monocytes 2 % (0-10); Myelocyte 1 % (0-0); Neutrophil 62 % (42-75); Platelet Count 120 thou/uL (130-400); Red Blood Cell (RBC) Count 3.11 mill/uL (4.70-6.10); White Blood Cell (WBC) Count 21.8 thou/uL (4.8-10.8)
[2018-02-14] MEDS: Amiodarone HCl 450 MG, Admixture Fee 1 EACH in Dextrose 5% in Water 250 ML IVPB SCH ×2 (05:00→22:30)
--- NOTE | 2018-02-14 06:13 | PDOC.FM ---
- Subjective Subjective: 77 yo male seen at bedside this AM. Patient is intubated and sedated. Per nursing staff, patient had a good night. Patient has needed pressure support overnight. Patient needed increased sedation overnight following a bath. Other than that no other acute changes overnight. - Objective Vital Signs & Weight: Vital Signs (12 hours) Temp Pulse Resp BP Pulse Ox 02/14/18 04:00 98.8 F 22 H 02/14/18 02:23 85 02/14/18 02:00 22 H 02/14/18 00:30 98.5 F 02/14/18 00:00 22 H 02/13/18 23:24 93 147/84 H 02/13/18 22:00 22 H 02/13/18 20:00 22 H 96 02/13/18 19:00 99.3 F 02/13/18 18:37 89 Weight Admit Weight 142.8 kg Weight 150.2 g Most Recent Monitor Data Heart Rate from ECG 84 NIBP 114/64 NIBP BP-Mean 80 Respiration from ECG 22 SpO2 96 I&O: 02/12/18 02/13/18 02/14/18 06:59 06:59 06:59 Intake Total 1385 4789 4151 Output Total 40 930 3180 Balance 1345 3859 971 Result Diagrams: 02/14/18 03:30 02/14/18 03:30 Phys Exam - Physical Examination Constitutional: NAD ET in place Neck: no JVD Left IJ in place Respiratory: no wheezing, clear to auscultation bilateral Cardiovascular: no significant murmur irregularly irregular Gastrointestinal: soft, non-tender, no distention, positive bowel sounds Musculoskeletal: pulses present pitting edema to RLE Intubated and sedated Deviation from normal: intubated and sedate d Skin: no rash Dx/Plan (1) ESBL (extended spectrum beta-lactamase) producing bacteria infection Code(s): A49.9 - BACTERIAL INFECTION, UNSPECIFIED; Z16.12 - EXTENDED SPECTRUM BETA LACTAMASE (ESBL) RESISTANCE Status: Acute (2) Respiratory distress Code(s): R06.03 - ACUTE RESPIRATORY DISTRESS Status: Acute (3) Sepsis Code(s): A41.9 - SEPSIS, UNSPECIFIED ORGANISM Status: Acute (4) Hypotension Status: Acute (5) Neutropenia Code(s): D70.9 - NEUTROPENIA, UNSPECIFIED Status: Resolved (6) Atrial fibrillation with RVR Code(s): I48.91 - UNSPECIFIED ATRIAL FIBRILLATION Status: Acute (7) Diabetes mellitus Code(s): E11.9 - TYPE 2 DIABETES MELLITUS WITHOUT COMPLICATIONS Status: Acute Qualifiers: Diabetes mellitus type: type 2 Diabetes mellitus complication status: without complication (8) History of prostate cancer Code(s): Z85.46 - PERSONAL HISTORY OF MALIGNANT NEOPLASM OF PROSTATE Status: Acute (9) Hypertension Code(s): I10 - ESSENTIAL (PRIMARY) HYPERTENSION Status: Acute (10) Total knee replacement status Code(s): Z96.659 - PRESENCE OF UNSPECIFIED ARTIFICIAL KNEE JOINT Status: Acute Qualifiers: Laterality: bilateral Qualified Code(s): Z96.653 - Presence of artificial knee joint, bilateral (11) Hyperchloremia Code(s): E87.8 - OTH DISORDERS OF ELECTROLYTE AND FLUID BALANCE, NEC Status: Acute - Plan Plan: 1. Respiratory distress - Likely secondary to ESBL Gram negative septicemia - Doppler US negative for DVT - Elevated D-dimer - Went for procedure to remove stone and came back to CCU intubated - Continues to be intubated on ventilator 2. Sepsis secondary to ESBL UTI - Persistent Hypotension, tachycardia and new neutropenia - Dr. Ambrocio consulted, appreciate his recommendations - Meropenem 02/13 - IVF 05/17 NS @ 125 - Levaphed ordered and at 20 mcg - Home BP meds held at this time. - s/p stenting with Dr. Almeida - Contact precautions 3. Recent Total knee replacement on right. - Will consult Orthopedics, appreciate Dr. Wong recommendations. - Dr. Wong states no infection and benign knee exam 4. Neutropenia - Resolved - WBC this AM 21.8 - Neutropenic precautions considered 5. Atrial fibrillation with RVR - New onset around 0300 this AM - Amiodarone loading dose and currently on 0.5 mg/min drip - Consider Cardiology consultation 6. MEGHA - Likely secondary to infection - IVF - Monitor BMP, slightly improved this AM #. HTN - Hold medication at this time #.DM2 - SSI #. Hypomagnesemia - Replete magnesium #. Hx of Prostate Cancer - Could be cause of infection UTI vs prostatitis # Hyperchloremia - Likely due to IVF - Changed IVF to / NS Disposition: Guarded, will continue current plan of care.
[2018-02-14] MEDS: Norepinephrine 8 MG/0.9% NS 250 ML IVPB SCH ×2 (06:35→12:33)
[2018-02-14 07:20] LABS: Actual Bicarbonate (HCO3a) 14.5 mEq/L (22-28); Base Excess (BEa) -9.6 mEq/L (-2.0 to +3.0); CO2 Tension 26.4 mmHg (35.0-45.0); Calcium, Ionized 1.13 mmol/L (1.12-1.30); Hemoglobin (Hb) 10.6 g/dL (14.0-18.0); O2 Tension (PaO2) 128.5 mmHg (> 70.0); Potassium - ABG Lab 3.78 mmol/L (3.70-5.30); pH, Arterial 7.36 (7.35-7.45)
[2018-02-14 07:32] LABS: Puncture Site LINE
--- NOTE | 2018-02-14 08:02 | RAD ---
CHEST ONE VIEW: History: Dyspnea. Intubated. Follow up. Comparison: 02-13-18 FINDINGS: Cardiac silhouette is magnified and enlarged. Pulmonary vasculature remains engorged with patchy bila teral appearing hilar infiltrates. Mediastinum is midline allowing for slight rightward rotation of t he patient. Lines and tubes are unchanged in position. sheet metal former leads overlie the chest. IMPRESSION: Pulmonary vascular congestion and other findings are stable. POS: [facility]
[2018-02-14] MEDS: Aspirin 81 mg Enteric Coated Tablet PO SCH ×2 (09:16→20:04)
[2018-02-14] MEDS: Enoxaparin Sodium 40 MG/0.4 ML SYRINGE SC SCH (09:16)
[2018-02-14] MEDS: Tamsulosin HCl 0.4 MG CAP PO SCH (09:16)
[2018-02-14] MEDS: metFORMIN 500 MG TAB PO SCH ×3 (09:17→20:05)
[2018-02-14] MEDS: MEROPENEM 1 GM/50 ML 1 GM in Premix Bag 1 BAG IVPB SCH ×2 (09:17→20:00)
--- NOTE | 2018-02-14 12:04 | OP ---
DATE OF SURGERY: 02/13/2018 PREOPERATIVE DIAGNOSES: Sepsis and right ureteral stone. POSTOPERATIVE DIAGNOSES: Sepsis and right ureteral stone. PROCEDURE PERFORMED: Cysto, right retrograde, right stent placement, and left retrograde. SURGEON: Dr. Reyes Hahn. ANESTHETIC: General with intubation. ESTIMATED BLOOD LOSS: Minimal. FINDINGS: There is no stricture disease. There was no evidence of significant prostatic obstruction . There was no evidence of bladder tumor, foreign body, or stone. Retrograde study revealed some sm all filling defects in the distal ureter with a mildly dilated ureter above it. There was some debri s and some cloudiness to the urine proximal to this. Left retrograde study showed no obstruction to the left ureter at all. DRAINS PLACED: 4.8 x 24 cm right double-J stent and a 16-Emirati Greenberg catheter. OPERATIVE TECHNIQUE: Obtained written and verbal consent from the patient, after discussing the proc edure with him and his . He was taken from the ICU down to the cystoscopic room and placed in a supine position on the table. PlexiPulses placed on his left lower extremity. Did not have one on t he right, because of his total knee replacement 3 weeks ago. He was given a general anesthetic, oral intubation, an arterial line was placed, and then he was very carefully placed in the dorsal lithoto my position. He was sterilely prepped and draped and cystoscopy was performed with a 22-Emirati sheat h. This was well lubricated and passed in direct vision through the male urethra and into the urinar y bladder with aid of a 30 degree lens and a video camera and monitor. The bladder was filled and em ptied and examined with both the 30- and the 70-degree lens. A 5-Emirati cone tip catheter was flushe d with contrast and brought in and it was placed into the right ureteral orifice and contrast was gen tly injected in a retrograde manner, about 10 mL to just fill out the lower part of the ureter. We t hen attempted to pass a guidewire, it was unsuccessful. So, we brought in a Pollack catheter 5-Frenc h and lubricated angle-tipped Glidewire, and we were able to advance this by the distal obstruction a nd up into the area of the renal pelvis. There was immediate flow of some urine with debris and some cloudiness to it once the stone was bypassed. We then passed the open-ended catheter up to the vera on of the renal pelvis, removed the Glidewire, injected about 3 mL of contrast just to fill out the r ight upper collecting system and then passed a 0.038 guidewire through the open-ended catheter, remov ed the open-ended catheter and then put the stent over the guidewire and placed up into place with ai d of a pusher so its proximal end coiled in the renal pelvis and its distal end coiled in the bladder when the wire was removed. When this was completed, we used a cone-tip catheter and injected about 7 mL of contrast up the left ureter just to be sure that this ureter drained well, and the contrast i mmediately effluxed out and was clear. At this point, full instruments were removed. A Greenberg cathet er was sterilely inserted and the patient was kept intubated and taken back upstairs to the Intensive Care Unit.
--- NOTE | 2018-02-14 18:46 | PRG ---
DATE OF SERVICE: 02/14/2018 SUBJECTIVE: The patient is intubated and sedated. He is doing well. Hemodynamics are stable. The plan is to extubate him tomorrow. OBJECTIVE: VITAL SIGNS: His vital signs are normal. He is afebrile. HEENT: Pupils are miotic as expected, under propofol. LUNGS: Symmetric clear breath sounds. Orotracheal intubation. HEART: S1, S2, regular rate. ABDOMEN: Soft, not distended. EXTREMITIES: Moves extremities equally. LABORATORY DATA: White cell count is up to 21,000, hemoglobin 10 and bands are 28%. Chemistry with a creatinine down to 1.97. Sodium 138. Liver profile normal. Microbiology with E. coli with resist ance to third generation cephalosporins. This is ESBL phenotype. GFR at this time is at 33. ASSESSMENT AND DISCUSSION: Recent TKR, sepsis syndrome with pyelonephritis and obstruction due to re nal stone, status post stenting. The patient had cystography with a retrograde. There is no evidenc e of stricture disease. No prostatic obstruction of significance. No bladder tumor. The patient wi ll continue on meropenem for at least for another 2 weeks to be extubated tomorrow.
[2018-02-14] MEDS: Magnesium Oxide 250 MG TAB PO SCH (20:00)
[2018-02-14] MEDS: glipiZIDE 10 MG TAB PO SCH (20:05)
--- NOTE | 2018-02-14 20:42 | PRG ---
DATE OF SERVICE: 02/14/2018 SUBJECTIVE: Mr. Holloway remains intubated. He is resting comfortably. He was encephalopathic prior to intubation, so he left mechanically ventilated. Hopefully, will need inflammatory process comes down as encephalopathy was clear. He has no history of dementia per family at home. OBJECTIVE: VITAL SIGNS: He is afebrile, heart rate 70, blood pressure 115/67, respiratory rates per mechanical ventilation. HEENT: Pupils react. Sclerae is icteric. NECK: Supple. LUNGS: Clear. CARDIOVASCULAR: Regular rhythm. S1 and S2 are normal. ABDOMEN: Soft and nontender. EXTREMITIES: Without clubbing, cyanosis or edema. IMPRESSION: Status post ureteral stent for clinical sepsis associated with pyelonephritis and bacteremia. His urine is now growing out E. coli as well as blood cultures. He remains on meropenem though E. coli is sensitive to meropenem. We will consider decreasing ventilatory support tomorrow if he remains hemodynamically stable. His creatinine is improving from 2.23 and 1.97 today. He has developed mild hyperchloremia. We will change his IV fluids. Critical care time was 30 minutes. [facility]
[2018-02-15 05:30] LABS: Anion Gap 10 mmol/L (10-20); BUN (Urea Nitrogen) 34 mg/dL (8.4-25.7); Calc. Creatinine Clearance 0 mL/min (70-130); Calcium 8.5 mg/dL (7.8-10.44); Carbon Dioxide 21 mmol/L (23-31); Chloride 113 mmol/L (98-107); Estimated GFR-MDRD 42; Glucose 97 mg/dL (83-110); Potassium 3.7 mmol/L (3.5-5.1); Sodium 140 mmol/L (136-145)
--- NOTE | 2018-02-15 06:24 | PDOC.FM ---
- Subjective Subjective: 77 yo male seen at bedside this AM. Patient is intubated and sedated. Patient is no longer requiring vasopressor support. Patient's nurse states that he had an unremarkable night. Patient otherwise is improved. No other history is able to be obtained this AM. - Objective Vital Signs & Weight: Vital Signs (12 hours) Temp Resp Pulse Ox 02/15/18 06:00 22 H 02/15/18 04:00 98.4 F 26 H 02/15/18 02:00 22 H 02/15/18 00:00 98.2 F 22 H 02/14/18 22:00 22 H 02/14/18 20:00 98.9 F 22 H 98 Weight Admit Weight 146.057 kg Weight 148.7 kg Most Recent Monitor Data Heart Rate from ECG 71 NIBP 106/59 NIBP BP-Mean 74 Respiration from ECG 22 SpO2 95 I&O: 02/13/18 02/14/18 02/15/18 06:59 06:59 06:59 Intake Total 4701 4151 2741 Output Total 930 3380 3405 Balance 3859 771 -664 Result Diagrams: 02/15/18 05:00 02/15/18 05:00 Phys Exam - Physical Examination Constitutional: NAD ET in place Respiratory: no wheezing, clear to auscultation bilateral Cardiovascular: RRR, no significant murmur Gastrointestinal: soft, non-tender, no distention, positive bowel sounds Musculoskeletal: pulses present edema to RLE. Recent surgical site clean, dry and intact intubated and sedated Deviation from normal: intubated and sedated Dx/Plan (1) ESBL (extended spectrum beta-lactamase) producing bacteria infection Code(s): A49.9 - BACTERIAL INFECTION, UNSPECIFIED; Z16.12 - EXTENDED SPECTRUM BETA LACTAMASE (ESBL) RESISTANCE Status: Acute (2) Respiratory distress Code(s): R06.03 - ACUTE RESPIRATORY DISTRESS Status: Acute (3) Sepsis Code(s): A41.9 - SEPSIS, UNSPECIFIED ORGANISM Status: Acute (4) Hypotension Status: Acute (5) Neutropenia Code(s): D70.9 - NEUTROPENIA, UNSPECIFIED Status: Resolved (6) Atrial fibrillation with RVR Code(s): I48.91 - UNSPECIFIED ATRIAL FIBRILLATION Status: Acute (7) Diabetes mellitus Code(s): E11.9 - TYPE 2 DIABETES MELLITUS WITHOUT COMPLICATIONS Status: Acute Qualifiers: Diabetes mellitus type: type 2 Diabetes mellitus complication status: without complication (8) History of prostate cancer Code(s): Z85.46 - PERSONAL HISTORY OF MALIGNANT NEOPLASM OF PROSTATE Status: Acute (9) Hypertension Code(s): I10 - ESSENTIAL (PRIMARY) HYPERTENSION Status: Acute (10) Total knee replacement status Code(s): Z96.659 - PRESENCE OF UNSPECIFIED ARTIFICIAL KNEE JOINT Status: Acute Qualifiers: Laterality: bilateral Qualified Code(s): Z96.653 - Presence of artificial knee joint, bilateral (11) Hyperchloremia Code(s): E87.8 - OTH DISORDERS OF ELECTROLYTE AND FLUID BALANCE, NEC Status: Acute - Plan Plan: 1. Respiratory distress - Likely secondary to ESBL Gram negative septicemia - Doppler US negative for DVT - Elevated D-dimer - Went for procedure to remove stone and came back to CCU intubated - Continues to be intubated on ventilator - Plan to be extubated today. 2. Sepsis secondary to ESBL UTI - Persistent Hypotension - Resolving - Dr. Ambrocio consulted, appreciate his recommendations - Meropenem 02/13 - IVF stopped - Levaphed turned off - Home BP meds held at this time. - s/p stenting with Dr. Almeida - Contact precautions 3. Recent Total knee replacement on right. - Will consult Orthopedics, appreciate Dr. Wong recommendations. - Dr. Wong states no infection and benign knee exam 4. Neutropenia - Resolved - Neutropenic precautions considered 5. Atrial fibrillation with RVR - New onset - Amiodarone loading dose and currently on 0.5 mg/min drip - Consider Cardiology consultation 6. MEGHA - Likely secondary to infection - IVF - Monitor BMP, Creatinine slightly improved this AM to 1.62 #. HTN - Hold medication at this time #.DM2 - SSI #. Hypomagnesemia - Replete magnesium #. Hx of Prostate Cancer - Could be cause of infection UTI vs prostatitis # Hyperchloremia - Likely due to IVF - IVF turned off - Increased free water per tube to 200 ml Q4h Disposition: Guarded, will continue current plan of care and look for extubation at some point today.
[2018-02-15 07:02] LABS: Hemoglobin 9.7 g/dL (14.0-18.0); Mean Corpuscular HGB CONC 33.3 g/dL (32.0-36.0); Mean Corpuscular Hemoglobin 32.2 pg (27.0-31.0); Mean Corpuscular Volume 96.8 fL (78.0-98.0); Mean Platelet Volume 8.6 fL (7.4-10.4); Platelet Count 136 thou/uL (130-400); RBC Distribution Width 13.2 % (11.5-14.5); White Blood Cell (WBC) Count 16.5 thou/uL (4.8-10.8)
[2018-02-15 07:46] LABS: Actual Bicarbonate (HCO3a) 18.9 mEq/L (22-28); Base Excess (BEa) -4.4 mEq/L (-2.0 to +3.0); Carboxyhemoglobin (COHb) 1.2 gm% (0.0-3.0); Hemoglobin (Hb) 9.8 g/dL (14.0-18.0); O2 Tension (PaO2) 101.5 mmHg (> 70.0); Potassium - ABG Lab 3.78 mmol/L (3.70-5.30); pH, Arterial 7.43 (7.35-7.45)
[2018-02-15 08:04] LABS: Band 34 % (5-11); Eosinophils 3 % (0-10); Lymphocytes 13 % (21-51); MDiff Complete? YES; Monocytes 4 % (0-10); Neutrophil 46 % (42-75)
[2018-02-15 08:07] LABS: Puncture Site LINE
[2018-02-15] MEDS: Tamsulosin HCl 0.4 MG CAP PO SCH (08:14)
[2018-02-15] MEDS: Aspirin 81 mg Enteric Coated Tablet PO SCH ×2 (08:15→20:07)
[2018-02-15] MEDS: metFORMIN 500 MG TAB PO SCH (08:15)
[2018-02-15] MEDS: Enoxaparin Sodium 40 MG/0.4 ML SYRINGE SC SCH (08:15)
[2018-02-15] MEDS: MEROPENEM 1 GM/50 ML 1 GM in Premix Bag 1 BAG IVPB SCH ×2 (08:15→20:08)
--- NOTE | 2018-02-15 08:35 | RAD ---
AP CHEST: History: Ventilator dependent patient. Date: 02-15-18 Comparison: 02-14-18 FINDINGS: AP chest demonstrates an endotracheal tube to be in position. The distal tip appears to have advanced , now appearing to be at the level of the jamilah. This should be pulled back 2-3 cm to be in optimum location. A left jugular central line is in place. Distal tip clearly not visible. There is suboptimal inspiratory effort. Pulmonary vascular congestion is seen. IMPRESSION: Approximately 3 cm advancement of the endotracheal tube. Repeat radiograph to evaluate the left jugul ar central line and endotracheal tube are recommended. The distal tip may be at the level of the lobito na. POS: [facility]
[2018-02-15] MEDS: Propofol 1,000 MG/100 ML VIAL IV PRN (08:57)
[2018-02-15] MEDS: Lorazepam 2 MG/ML VIAL SLOW IVP PRN (09:16)
[2018-02-15] MEDS ORDERED: HumaLOG 300 UNITS/3 ML VIAL SC PRN (09:55)
[2018-02-15] MEDS ORDERED: Dextrose 5% in Water 1,000 ML IV PRN (09:55)
[2018-02-15] MEDS ORDERED: Dextrose 50% Abboject 50 ML SYRINGE SLOW IVP PRN (09:55)
--- NOTE | 2018-02-15 11:55 | PQF ---
CLINICAL DOCUMENTATION IMPROVEMENT CLARIFICATION FORM: ICD-10 Updated PLEASE DO AN ADDENDUM TO THE PROGRESS NOTE WITH ANY DOCUMENTATION UPDATES OR ADDITIONS AND CARRY THROUGH TO DC SUMMARY. THANK YOU. DATE: 02/15 ATTN: DR. Luly MALDONADO / DR. Suzi KAUFMAN Please exercise your independent, professional judgment in responding to the clarification form. Clinical indicators are provided on the bottom of this form for your review. Please check appropriate box(s): [ x ] Acute Respiratory Failure: [ x ] with Hypoxia [ ] with Hypercapnia [ ] Acute Respiratory Failure due to: (etiology) [ ] Other diagnosis [ ] Unable to determine For continuity of documentation, please document condition throughout progress notes and discharge summary. Thank You. CLINICAL INDICATORS - SIGNS / SYMPTOMS / LABS ER PRESENTATION 02/11: SOB RA SAT ON PRESENTATION: 96% > TACHYPNEA, RA 87% > 2L NC > NRB > FM > BIPAP; TRANSFERRED TO CCU ON BIPAP H&P DOCUMENTATION 02/11 (JOEL): DX/PLAN: 1) RESPIRATORY DISTRESS, ACUTE ATTENDING ADDENDUM (MANDEEP) H&P DOCUMENTATION 02/11: THE PATIENT'S HYPOXIC RESPIRATORY FAILURE WORSENED REQUIRING BIPAP. PN 02/12 - PRESENT (JOEL): DX/PLAN: 1) RESPIRATORY DISTRESS, ACUTE NO FURTHER MENTION OF RESPIRATORY FAILURE TO DATE RISK FACTORS: SEPSIS PROGRESSIVE SOB TREATMENTS: SUPPLEMENTAL OXYGEN (BIPAP 02/11 - 02/14) PULMONOLOGY CONSULT CCU MONITORING THANK YOU! Pauline (This form is maintained as a part of the permanent medical record) 2014 [email or web address]. All Rights Reserved Pauline Kaplan RN, BSN [email or web address] Office: [phone] [facility]
--- NOTE | 2018-02-15 12:07 | PQF ---
CLINICAL DOCUMENTATION IMPROVEMENT CLARIFICATION FORM: ICD-10 Updated PLEASE DO AN ADDENDUM TO THE PROGRESS NOTE WITH ANY DOCUMENTATION UPDATES OR ADDITIONS AND CARRY THROUGH TO DC SUMMARY. THANK YOU. DATE: 02/15 ATTN: DR. Luly MALDONADO / DR. Suzi KAUFMAN Please exercise your independent, professional judgment in responding to the clarification form. Clinical indicators are provided on the bottom of this form for your review. Please check appropriate box(s): [ ] Hypovolemic Shock [ x ] Septic Shock [ ] Other diagnosis [ ] Unable to determine For continuity of documentation, please document condition throughout progress notes and discharge summary. Thank You. CLINICAL INDICATORS - SIGNS / SYMPTOMS / LABS ER MD DOCUMENTATION 02/11: PT PRESENTED VERY STABLE INITIALLY W/FEVER & NO SOURCE BUT VERY TACHYPNEIC W/RISK FACTORS FOR PE. ...HIS URINE IS QUITE INFECTED AND HE APPEARS TO HAVE SEPSIS 2/2 UTI. HE HAS HAD NO INFECTED STONE LIKE SX AND HE BEGAN TO DECLINE AFTER BEING ADMITTED TO THE [facility]. I HAVE RE-EVALUATED THE PATIENT AND HE APPEARS TO BE EXPERIENCING SEPTIC SHOCK. ...LEVOPHED HAS BEEN STARTED BP IN ER: 184/85 INITIALLY > 98/55 - 69/52 LEVOPHED INITIATED; RECEIVED 3L NS IN ER TRANSFERRED TO CCU ON LEVOPHED RISK FACTORS: SEPSIS UTI (ESBL E COLI) TREATMENTS: ICU MONITORING (02/11 - PRESENT) LEVOPHED (02/11 - 02/14) IVF (3L NS IN ER; 1/2 NS 02/12 - 02/14) THANK YOU! Pauline (This form is maintained as a part of the permanent medical record) 2014 [employer]. All Rights Reserved Pauline Kaplan RN, BSN [email or web address] Office: [phone] [facility]
[2018-02-15] MEDS: Haloperidol Lactate 5 MG/ML VIAL IM PRN (12:44)
[2018-02-15] MEDS: Dextrose 5% in Water 1,000 ML IV SCH ×2 (12:53→22:49)
[2018-02-15] MEDS: Haloperidol Lactate 5 MG/ML VIAL IM SCH ×2 (17:53→22:50)
--- NOTE | 2018-02-15 18:35 | PRG ---
DATE OF SERVICE: 02/15/2018 SUBJECTIVE: Tyree Holloway remains mechanically ventilated. OBJECTIVE: VITAL SIGNS: Respiratory rate 18, heart rate 70, blood pressure 86/56. He was weaned off pressors a gain. They were restarted yesterday evening. Intake and outputs, negative 1044. LUNGS: Clear anteriorly. HEART: Regular rhythm. ABDOMEN: Soft. EXTREMITIES: Without asymmetry. IMAGING: Chest radiograph showed no pulmonary edema. LABORATORY DATA: White count 16.5, hemoglobin 9.7, platelets 136,000. Sodium 140, potassium 3.7, ch loride 113, bicarbonate 21, BUN 34, creatinine 1.62. PH 7.43, pCO2 of 29, pO2 of 101. His rate was set at 22. We turned his ventilatory rate down. He should compensate. We will try to minimize angela tion. We will add Haldol routinely to see if this leads to an improvement of his encephalopathy. Critical care time 30 minutes. I met with his and answered all of her questions.
[2018-02-15] MEDS: Magnesium Oxide 250 MG TAB PO SCH (20:07)
[2018-02-16] MEDS: Propofol 1,000 MG/100 ML VIAL IV PRN ×5 (02:10→23:44)
[2018-02-16] MEDS: Haloperidol Lactate 5 MG/ML VIAL IM SCH ×4 (04:23→23:47)
[2018-02-16 04:52] LABS: Anion Gap 10 mmol/L (10-20); BUN (Urea Nitrogen) 30 mg/dL (8.4-25.7); Calc. Creatinine Clearance 98 mL/min (70-130); Calcium 8.6 mg/dL (7.8-10.44); Carbon Dioxide 23 mmol/L (23-31); Chloride 111 mmol/L (98-107); Estimated GFR-MDRD 52; Glucose 123 mg/dL (83-110); Potassium 3.6 mmol/L (3.5-5.1); Sodium 140 mmol/L (136-145)
[2018-02-16 05:36] LABS: Band 28 % (5-11); Eosinophils 4 % (0-10); Hemoglobin 9.6 g/dL (14.0-18.0); Lymphocytes 17 % (21-51); MDiff Complete? YES; Mean Corpuscular HGB CONC 33.6 g/dL (32.0-36.0); Mean Corpuscular Hemoglobin 32.2 pg (27.0-31.0); Mean Platelet Volume 8.5 fL (7.4-10.4); Monocytes 11 % (0-10); Myelocyte 1 % (0-0); Neutrophil 39 % (42-75); PLT Morphology Comment Appears Adequate; Platelet Count 130 thou/uL (130-400); Red Blood Cell (RBC) Count 2.97 mill/uL (4.70-6.10); White Blood Cell (WBC) Count 9.1 thou/uL (4.8-10.8)
--- NOTE | 2018-02-16 06:37 | PDOC.FM ---
- Subjective Subjective: 77 yo male seen at bedside this AM. Patient is intubated and sedated. No family is available at bedside this AM. Per nursing staff, on sedation vacations patient will wake up and follow commands. No other history is able to be obtained today. - Objective Vital Signs & Weight: Vital Signs (12 hours) Temp Resp Pulse Ox 02/16/18 06:00 17 02/16/18 04:00 18 02/16/18 03:00 98.3 F 02/16/18 02:00 17 02/16/18 00:00 17 02/15/18 23:00 98.6 F 02/15/18 22:00 14 02/15/18 20:00 17 97 02/15/18 19:00 98.8 F Weight Admit Weight 146.057 kg Weight 148.2 kg Most Recent Monitor Data Heart Rate from ECG 66 NIBP 106/71 NIBP BP-Mean 82 Respiration from ECG 20 SpO2 97 I&O: 02/14/18 02/15/18 02/16/18 06:59 06:59 06:59 Intake Total 4151 2741 4494 Output Total 3380 3405 3265 Balance 771 -664 1229 Result Diagrams: 02/16/18 04:28 02/16/18 04:28 Phys Exam - Physical Examination ET in place Left IJ in place Respiratory: no wheezing, clear to auscultation bilateral Cardiovascular: RRR, no significant murmur Gastrointestinal: soft, non-tender, no distention, positive bowel sounds Musculoskeletal: pulses present, edema present RLE 1+ pitting edema intubated and sedated Deviation from normal: intubated and sedated Dx/Plan (1) ESBL (extended spectrum beta-lactamase) producing bacteria infection Code(s): A49.9 - BACTERIAL INFECTION, UNSPECIFIED; Z16.12 - EXTENDED SPECTRUM BETA LACTAMASE (ESBL) RESISTANCE Status: Acute (2) Respiratory distress Code(s): R06.03 - ACUTE RESPIRATORY DISTRESS Status: Acute (3) Sepsis Code(s): A41.9 - SEPSIS, UNSPECIFIED ORGANISM Status: Acute (4) Hypotension Status: Acute (5) Neutropenia Code(s): D70.9 - NEUTROPENIA, UNSPECIFIED Status: Resolved (6) Atrial fibrillation with RVR Code(s): I48.91 - UNSPECIFIED ATRIAL FIBRILLATION Status: Acute (7) Diabetes mellitus Code(s): E11.9 - TYPE 2 DIABETES MELLITUS WITHOUT COMPLICATIONS Status: Acute Qualifiers: Diabetes mellitus type: type 2 Diabetes mellitus complication status: without complication (8) History of prostate cancer Code(s): Z85.46 - PERSONAL HISTORY OF MALIGNANT NEOPLASM OF PROSTATE Status: Acute (9) Hypertension Code(s): I10 - ESSENTIAL (PRIMARY) HYPERTENSION Status: Acute (10) Total knee replacement status Code(s): Z96.659 - PRESENCE OF UNSPECIFIED ARTIFICIAL KNEE JOINT Status: Acute Qualifiers: Laterality: bilateral Qualified Code(s): Z96.653 - Presence of artificial knee joint, bilateral (11) Hyperchloremia Code(s): E87.8 - OTH DISORDERS OF ELECTROLYTE AND FLUID BALANCE, NEC Status: Acute - Plan Plan: 1. Respiratory distress - Likely secondary to ESBL Gram negative septicemia - Doppler US negative for DVT - Elevated D-dimer - Went for procedure to remove stone and came back to CCU intubated - Continues to be intubated on ventilator - Sedation minimized overnight - Plan to be extubated today 2. Sepsis secondary to ESBL UTI - Persistent Hypotension - Resolving - Dr. Ambrocio consulted, appreciate his recommendations - Meropenem 02/13 - IVF stopped - Levaphed turned off - Home BP meds held at this time. - s/p stenting with Dr. Almeida - Contact precautions 3. Recent Total knee replacement on right. - Will consult Orthopedics, appreciate Dr. Wong recommendations. - Dr. Wong states no infection and benign knee exam 4. Neutropenia - Resolved - Neutropenic precautions considered 5. Atrial fibrillation with RVR - resolved - New onset - Amiodarone loading dose - Amiodarone drip turned off and maintained NSR - Consider Cardiology consultation 6. MEGHA - Likely secondary to infection - IVF - Monitor BMP, Creatinine slightly improved this AM to 1.33 #. HTN - Hold medication at this time #.DM2 - SSI #. Hypomagnesemia - Replete magnesium #. Hx of Prostate Cancer - Could be cause of infection UTI vs prostatitis # Hyperchloremia - Likely due to IVF - IVF changed to D5W - Increased free water per tube to 200 ml Q4h - Improved to 111 this AM Disposition: Guarded, will continue current plan of care and look for extubation as tolerated at some point today.
[2018-02-16 07:08] LABS: Puncture Site ALINE
[2018-02-16 08:16] LABS: O2 Tension (PaO2) 79.2 mmHg (> 70.0); pH, Arterial 7.45 (7.35-7.45)
[2018-02-16 08:17] LABS: Actual Bicarbonate (HCO3a) 20.2 mEq/L (22-28); Hemoglobin (Hb) 10.5 g/dL (14.0-18.0)
[2018-02-16 08:18] LABS: Carboxyhemoglobin (COHb) 0.6 gm% (0.0-3.0); Potassium - ABG Lab 3.75 mmol/L (3.70-5.30)
[2018-02-16 08:19] LABS: Calcium, Ionized 1.19 mmol/L (1.12-1.30)
--- NOTE | 2018-02-16 08:46 | RAD ---
CHEST 1 VIEW: HISTORY: Dyspnea. Followup. COMPARISON: 02/15/18. FINDINGS: Cardiac silhouette is magnified by projection. Pulmonary vasculature engorged and accentuated by sha llow inspiration. Reticulonodular interstitial prominence is stable. No evidence of pneumothorax. Lines and tubes appear unchanged in position. IMPRESSION: Pulmonary edema and other findings are stable. POS: [facility]
[2018-02-16] MEDS: Dextrose 5% in Water 1,000 ML IV SCH ×2 (09:36→23:43)
[2018-02-16] MEDS: Aspirin 81 mg Enteric Coated Tablet PO SCH ×2 (09:36→21:00)
[2018-02-16] MEDS: Enoxaparin Sodium 40 MG/0.4 ML SYRINGE SC SCH (09:37)
[2018-02-16] MEDS: MEROPENEM 1 GM/50 ML 1 GM in Premix Bag 1 BAG IVPB SCH ×2 (09:38→18:00)
[2018-02-16] MEDS: Tamsulosin HCl 0.4 MG CAP PO SCH (09:40)
[2018-02-16] MEDS: Magnesium Oxide 250 MG TAB PO SCH (20:39)
--- NOTE | 2018-02-17 00:26 | PRG ---
DATE OF SERVICE: 02/16/2018 SUBJECTIVE: Tyree Holloway gets agitated when he is not sedated. OBJECTIVE: VITAL SIGNS: Blood pressure is 106/57, heart rate 64, respiratory rate 20, oximetry is 98. Intake a nd output is positive 1229. LUNGS: Clear. HEART: Regular rhythm. ABDOMEN: Soft. EXTREMITIES: Without asymmetry. LABORATORY DATA AND IMAGING: White count is 9.1, hemoglobin 9.6, platelets 130. Electrolytes were u nremarkable except for mild increase in chloride. Creatinine is down to 1.33. A pH of 7.45, CO2 of 30, pO2 of 79. Chest radiograph shows mild increase in interstitial markings. IMPRESSION: Respiratory failure associated with sepsis associated with nephrolithiasis. PLAN: We will continue to decrease ventilatory support. Hopefully, in morning, we can extubate him to BiPAP. We may need to try to diurese him as were extubating him to hopefully minimize his work of breathing. I met with his twice and answered all of her questions. I also examined him twice today and I think this will be the best plan. I cannot see continuing the mechanical ventilation giv en this clinical stability, his obesity and his encephalopathy are the biggest issues of hand. We ca n fix these and hopefully his encephalopathy will gradually improve as his sepsis improves. He is growing E. coli out of all of his cultures. His current antimicrobial therapy consists of bonifacio penem. Critical care time was 30 minutes.
[2018-02-17] MEDS: MEROPENEM 1 GM/50 ML 1 GM in Premix Bag 1 BAG IVPB SCH ×3 (00:49→17:22)
[2018-02-17] MEDS: Propofol 1,000 MG/100 ML VIAL IV PRN ×3 (04:33→20:17)
[2018-02-17 04:53] LABS: Band 4 % (5-11); Hemoglobin 9.1 g/dL (14.0-18.0); Hypochromia SLIGHT = 6-15 cells (100X) (0-5/hpf); Lymphocytes 14 % (21-51); MDiff Complete? YES; Mean Corpuscular HGB CONC 33.9 g/dL (32.0-36.0); Mean Corpuscular Hemoglobin 32.4 pg (27.0-31.0); Mean Corpuscular Volume 95.6 fL (78.0-98.0); Mean Platelet Volume 7.9 fL (7.4-10.4); Monocytes 8 % (0-10); Neutrophil 74 % (42-75); PLT Morphology Comment Appears Decreased; Platelet Count 126 thou/uL (130-400); RBC Distribution Width 13.4 % (11.5-14.5); Red Blood Cell (RBC) Count 2.81 mill/uL (4.70-6.10); White Blood Cell (WBC) Count 9.7 thou/uL (4.8-10.8)
[2018-02-17 04:56] LABS: Anion Gap 11 mmol/L (10-20); BUN (Urea Nitrogen) 26 mg/dL (8.4-25.7); Calc. Creatinine Clearance 107 mL/min (70-130); Calcium 8.5 mg/dL (7.8-10.44); Carbon Dioxide 23 mmol/L (23-31); Chloride 110 mmol/L (98-107); Estimated GFR-MDRD 58; Glucose 134 mg/dL (83-110); Potassium 3.6 mmol/L (3.5-5.1); Sodium 140 mmol/L (136-145)
[2018-02-17] MEDS: Haloperidol Lactate 5 MG/ML VIAL IM SCH ×3 (05:15→17:28)
[2018-02-17 06:28] LABS: Actual Bicarbonate (HCO3a) 22.4 mEq/L (22-28); Base Excess (BEa) -1.8 mEq/L (-2.0 to +3.0); Calcium, Ionized 1.19 mmol/L (1.12-1.30); Carboxyhemoglobin (COHb) 0.6 gm% (0.0-3.0); Hemoglobin (Hb) 10.2 g/dL (14.0-18.0); O2 Tension (PaO2) 80.8 mmHg (> 70.0); Potassium - ABG Lab 3.82 mmol/L (3.70-5.30); pH, Arterial 7.41 (7.35-7.45)
[2018-02-17 06:41] LABS: Puncture Site RBA
[2018-02-17] MEDS ORDERED: Scopolamine 1.5 mg/72 hour Patch TD SCH (07:00)
--- NOTE | 2018-02-17 07:08 | PDOC.FM ---
- Subjective Subjective: 77 yo male seen at bedside this AM. Patient is intubated and sedated. Patient wakes up on sedation holidays. Dr. Lainez is hopeful for extubation to bipap this AM. No other history is able to be obtained. - Objective Vital Signs & Weight: Vital Signs (12 hours) Temp Resp Pulse Ox 02/17/18 06:00 32 H 02/17/18 04:00 99.4 F 28 H 02/17/18 02:00 29 H 02/17/18 00:00 99.2 F 32 H 02/16/18 22:00 25 H 02/16/18 20:00 97.9 F 29 H 95 Weight Admit Weight 146.057 kg Weight 147.6 kg Most Recent Monitor Data Heart Rate from ECG 73 NIBP 113/60 NIBP BP-Mean 77 Respiration from ECG 31 SpO2 94 I&O: 02/16/18 02/17/18 02/18/18 06:59 06:59 06:59 Intake Total 4494 4737 Output Total 3265 4745 Balance 1229 -8 Result Diagrams: 02/17/18 04:03 02/17/18 04:03 Phys Exam - Physical Examination Constitutional: NAD ET in place Neck: no JVD Left IJ in place Respiratory: no wheezing, clear to auscultation bilateral Cardiovascular: RRR, no significant murmur Gastrointestinal: soft, non-tender, no distention, positive bowel sounds Musculoskeletal: pulses present, edema present RLE pitting edema intubated and sedated Deviation from normal: intubated and sedated Dx/Plan (1) ESBL (extended spectrum beta-lactamase) producing bacteria infection Code(s): A49.9 - BACTERIAL INFECTION, UNSPECIFIED; Z16.12 - EXTENDED SPECTRUM BETA LACTAMASE (ESBL) RESISTANCE Status: Acute (2) Respiratory distress Code(s): R06.03 - ACUTE RESPIRATORY DISTRESS Status: Acute (3) Sepsis Code(s): A41.9 - SEPSIS, UNSPECIFIED ORGANISM Status: Acute (4) Hypotension Status: Acute (5) Neutropenia Code(s): D70.9 - NEUTROPENIA, UNSPECIFIED Status: Resolved (6) Atrial fibrillation with RVR Code(s): I48.91 - UNSPECIFIED ATRIAL FIBRILLATION Status: Acute (7) Diabetes mellitus Code(s): E11.9 - TYPE 2 DIABETES MELLITUS WITHOUT COMPLICATIONS Status: Acute Qualifiers: Diabetes mellitus type: type 2 Diabetes mellitus complication status: without complication (8) History of prostate cancer Code(s): Z85.46 - PERSONAL HISTORY OF MALIGNANT NEOPLASM OF PROSTATE Status: Acute (9) Hypertension Code(s): I10 - ESSENTIAL (PRIMARY) HYPERTENSION Status: Acute (10) Total knee replacement status Code(s): Z96.659 - PRESENCE OF UNSPECIFIED ARTIFICIAL KNEE JOINT Status: Acute Qualifiers: Laterality: bilateral Qualified Code(s): Z96.653 - Presence of artificial knee joint, bilateral (11) Hyperchloremia Code(s): E87.8 - OTH DISORDERS OF ELECTROLYTE AND FLUID BALANCE, NEC Status: Acute - Plan Plan: 1. Respiratory distress - Likely secondary to ESBL Gram negative septicemia - Doppler US negative for DVT - Elevated D-dimer - Went for procedure to remove stone and came back to CCU intubated - Continues to be intubated on ventilator with plan to be extubated to BIPAP this AM - Sedation minimized overnight 2. Sepsis secondary to ESBL UTI - Persistent Hypotension - Resolving - Dr. Ambrocio consulted, appreciate his recommendations - Meropenem 02/13 - IVF stopped - Levaphed turned off - Home BP meds held at this time. - s/p stenting with Dr. Almeida - Contact precautions 3. Recent Total knee replacement on right. - Will consult Orthopedics, appreciate Dr. Wong recommendations. - Dr. Wong states no infection and benign knee exam 4. Neutropenia - Resolved - Neutropenic precautions considered 5. Atrial fibrillation with RVR - resolved - New onset - s/p Amiodarone loading dose - Amiodarone drip turned off and maintained NSR - Consider Cardiology consultation 6. MEGHA - Likely secondary to infection - IVF - Monitor BMP, Creatinine improved this AM to 1.18 #. HTN - Hold medication at this time #.DM2 - SSI #. Hypomagnesemia - Replete magnesium - resolved #. Hx of Prostate Cancer - Could be cause of infection UTI vs prostatitis # Hyperchloremia - Likely due to IVF - IVF changed to D5W - Increased free water per tube to 200 ml Q4h - Improved to 110 this AM Disposition: Guarded, will continue current plan of care and look for extubation to BIPAP this AM.
[2018-02-17] MEDS ORDERED: Furosemide 40 MG/4 ML VIAL SLOW IVP SCH (07:15)
[2018-02-17] MEDS ORDERED: Potassium Chloride 40 MEQ in Premix Bag 1 BAG IVPB SCH (08:00)
[2018-02-17] MEDS: Enoxaparin Sodium 40 MG/0.4 ML SYRINGE SC SCH (08:08)
[2018-02-17] MEDS: Tamsulosin HCl 0.4 MG CAP PO SCH (08:08)
[2018-02-17] MEDS: Aspirin 81 mg Enteric Coated Tablet PO SCH ×2 (08:08→21:24)
[2018-02-17] MEDS: Dextrose 5% in Water 1,000 ML IV SCH ×2 (08:09→20:51)
--- NOTE | 2018-02-17 08:35 | RAD ---
CHEST 1 VIEW: HISTORY: Dyspnea. Followup. COMPARISON: 02/16/2018. FINDINGS: Cardiac silhouette is magnified and enlarged. Pulmonary vasculature remains engorged with widespread reticulonodular interstitial prominence. The patient is rotated rightward. Lines and tubes appear unchanged in position. No evidence of pneumothorax. IMPRESSION: Pulmonary vascular congestion and other findings are stable. POS: [facility]
--- NOTE | 2018-02-17 11:13 | PRG ---
DATE OF SERVICE: 02/17/2018 Mr. Holloway remains sedated for mechanical ventilation. He is on an IMV of 4 with pressure support. His pressure support breaths are exhaled, volumes of 200-250 mL. He also has significant secretions . PHYSICAL EXAMINATION: VITAL SIGNS: His heart rates in the 60s, blood pressure 115/66, respiratory rates in the 30s. His m inute volume 11 liters a minute. LUNGS: His lungs are clear. HEART: Regular rhythm. ABDOMEN: Soft. LABORATORY DATA: White count 9.7, hemoglobin 9.1, platelets 126,000. Sodium 140, potassium 3.6, chl oride 110, bicarbonate 23, BUN 26, creatinine 1.21, pH 7.41, CO2 36, pO2 80. Chest radiograph shows any increase in interstitial markings and is essentially unchanged. Intake and output is negative 8 mL. IMPRESSION: 1. Respiratory failure after urinary tract sepsis associated with ureteral stone and pyelonephritis. 2. Metabolic encephalopathy prior to intubation for his cystoscopy. 3. Status post cystoscopy with stent. 4. Obesity. 5. Recurrent prostate cancer. 6. Deconditioning. PLAN: Continue mechanical ventilation. I do not think he is at a point where we can safely wean him without ending up reintubating him within a few hours. Critical care time was 30 minutes.
--- NOTE | 2018-02-17 11:22 | PDOC.EVN ---
Event Note - Event Note Event Note: Transition of Care note 02/17/18 Patient is a 77 yo male that presented to the ED on 02/11/18 with acute on SOB when he sat down for dinner. Patient has a recent right knee replacement from approximately 2 weeks ago that was healing well. Patient was initially placed on BIPAP and work up for a DVT/PE was started. DVT/PE was ruled out with imaging. Patient had a ProCalcitonin or greater than 90. Patient was also placed on broad spectrum antibiotics at that time for suspected sepsis without a source. Dr. Wong, Orthopedics, was consulted and saw the patient. He stated that this infection could not be coming from his knee and needed to be worked up for a different source. Patient had imaging that showed multiple kidney stones present. Patient was then taken back for procedure and ureteral stent placed by Urology. Patient was intubated for that procedure on 02/13. Patient had a U/A that came back with probable source. Patient then had blood cultures and urine cultures that grew ESBL E. coli. Dr. Ambrocio, Infectious Disease, was consulted and initiated meropenem. Patient had an MEGHA along with hyperchloremia likely secondary to his sepsis and subsequent IVF management. His current IVF is D5W along with free water NG feeds at 200 ml q4h. This may need to be increased over the weekend to continue to help his electrolyte abnormalities. I would anticipate once he is awake and off the ventilator that his PO intake along with IVF will greatly improve his electrolyte imbalances. Patient has been unable to wean off the ventilator per Pulmonology. Patient has stabilized and his Procalcitonin has decreased to 20. Patient may be sustained on the ventilator over the weekend per Dr. Lainez. Dr. Ambrocio has recommended a PICC line be placed prior to discharge due to 2-4 weeks of antibiotics required following this hospitalization. As always please continue to follow specialty recommendations. Please contact with any other questions or concerns.
--- NOTE | 2018-02-17 13:40 | PRG ---
DATE OF SERVICE: 02/17/2018 SUBJECTIVE: Mr. Holloway is still intubated, still having a lot of secretions and volume overload. H e was given Lasix and scopolamine patch by Dr. Lainez. Seems to have improved with a lot of diuresis since, and improvement in his oxygenation. OBJECTIVE: VITAL SIGNS: His T-max is 99.4, blood pressure 113/64, pulse 68. GENERAL: He is sedated at this time. Ocular movements are not testable. LUNGS: With symmetric air entry. Coarse breath sounds. HEART: S1 and S2, regular rate. ABDOMEN: Soft, not distended. Greenberg catheter in place. I's and O's have been positive until today when he had this marked diuresis. Indwelling Greenberg. LABORATORY DATA: With a white cell count down to 9.7, hemoglobin 9.1, platelets 126,000 with 74% francia trophils, 4% bands, which is marked improvement in bands. Microbiology showed quite resistant E. coli, and he is currently on treatment with meropenem, to be c ontinued. He has had lithotripsies in the past and probably will need another one by Dr. Hahn. We will have to continue with carbapenem intravenously for a while until after lithotripsy is completed . Hopefully, he will be able to be extubated in the next few days.
[2018-02-17] MEDS ORDERED: Bisacodyl 5 MG TAB PO PRN (14:50)
[2018-02-17] MEDS ORDERED: Docusate 100 MG CAP PO PRN (14:50)
[2018-02-17] MEDS: Magnesium Oxide 250 MG TAB PO SCH (21:24)
[2018-02-18] MEDS: MEROPENEM 1 GM/50 ML 1 GM in Premix Bag 1 BAG IVPB SCH ×3 (00:01→16:33)
[2018-02-18] MEDS: Propofol 1,000 MG/100 ML VIAL IV PRN ×3 (00:14→08:55)
[2018-02-18] MEDS: Dextrose 5% in Water 1,000 ML IV SCH ×2 (04:30→16:19)
[2018-02-18] MEDS: Haloperidol Lactate 5 MG/ML VIAL IM SCH ×4 (04:31→17:36)
[2018-02-18 05:22] LABS: Anion Gap 10 mmol/L (10-20); BUN (Urea Nitrogen) 24 mg/dL (8.4-25.7); Calc. Creatinine Clearance 106 mL/min (70-130); Calcium 8.6 mg/dL (7.8-10.44); Carbon Dioxide 27 mmol/L (23-31); Chloride 107 mmol/L (98-107); Estimated GFR-MDRD 60; Glucose 147 mg/dL (83-110); Potassium 3.7 mmol/L (3.5-5.1); Sodium 140 mmol/L (136-145)
--- NOTE | 2018-02-18 05:52 | PDOC.FM ---
- Subjective Subjective: No acute events overnight. On propofol at this time, sedation holiday overnight during which Mr. Holloway would follow commands, nod yes/no. - Objective MAR Reviewed: Yes Vital Signs & Weight: Vital Signs (12 hours) Temp Resp Pulse Ox 02/18/18 04:00 98.8 F 30 H 02/18/18 02:00 24 H 02/18/18 00:00 99.5 F 27 H 02/17/18 22:00 33 H 02/17/18 20:00 99.4 F 27 H 95 02/17/18 18:00 23 H Weight Admit Weight 146.057 kg Weight 142.2 kg Most Recent Monitor Data Heart Rate from ECG 63 NIBP 117/63 NIBP BP-Mean 81 Respiration from ECG 29 SpO2 95 I&O: 02/16/18 02/17/18 02/18/18 06:59 06:59 06:59 Intake Total 4494 4737 3189 Output Total 3265 4745 7570 Balance 5254 -7 -2786 Result Diagrams: 02/18/18 04:50 02/18/18 04:50 Radiology Reviewed by me: Yes (ET tube in appropriate place, stable since yesterday) Phys Exam - Physical Examination Constitutional: NAD HEENT: moist MMs, sclera anicteric ET tube in place Respiratory: clear to auscultation bilateral Cardiovascular: RRR, no significant murmur Gastrointestinal: soft, non-tender, positive bowel sounds mildly distended 1+ edema to just below knee BL Neurological: moves all 4 limbs soft restraints in place Deviation from normal: sedated on proporfil Skin: no rash, cap refill <2 seconds Dx/Plan (1) ESBL (extended spectrum beta-lactamase) producing bacteria infection Code(s): A49.9 - BACTERIAL INFECTION, UNSPECIFIED; Z16.12 - EXTENDED SPECTRUM BETA LACTAMASE (ESBL) RESISTANCE Status: Acute (2) Hyperchloremia Code(s): E87.8 - OTH DISORDERS OF ELECTROLYTE AND FLUID BALANCE, NEC Status: Acute (3) Sepsis Code(s): A41.9 - SEPSIS, UNSPECIFIED ORGANISM Status: Acute (4) Diabetes mellitus Code(s): E11.9 - TYPE 2 DIABETES MELLITUS WITHOUT COMPLICATIONS Status: Acute Qualifiers: Diabetes mellitus type: type 2 Diabetes mellitus complication status: without complication (5) Hypertension Code(s): I10 - ESSENTIAL (PRIMARY) HYPERTENSION Status: Acute (6) Total knee replacement status Code(s): Z96.659 - PRESENCE OF UNSPECIFIED ARTIFICIAL KNEE JOINT Status: Acute Qualifiers: Laterality: bilateral Qualified Code(s): Z96.653 - Presence of artificial knee joint, bilateral - Plan Plan: 77 yo M with acute respiratory failure 2/2 sepsis 1. Respiratory distress - Likely secondary to e-coli septicemia - Doppler US negative for DVT - Elevated D-dimer - Went for procedure to remove stone and came back to CCU intubated - Continues to be intubated on ventilator with plan to be extubated to BIPAP over the weekend, hopefully Tuesday at the latest 2. Sepsis secondary to MDR e-coli UTI - Resolving - Dr. Ambrocio consulted, appreciate his recommendations - Meropenem 02/13 - IVF stopped - Levophed turned off - Home BP meds held at this time - s/p stenting with Dr. Almeida - Contact precautions - Will need PICC prior to d/c for 2-4 weeks antibiotics 3. Recent Total knee replacement on right. - Appreciate Dr. Wong recommendations - Dr. Wong states no infection and benign knee exam 4. Neutropenia - Resolved 5. Atrial fibrillation with RVR - resolved - New onset - s/p Amiodarone loading dose - Amiodarone drip turned off and maintained NSR - Consider Cardiology consultation 6. MEGHA - Likely secondary to infection - IVF - Monitor BMP, Creatinine improved this AM to 1.17 7. HTN - Hold medication at this time 8.DM2 - SSI 9. Hypomagnesemia - Replete magnesium - resolved 10. Hx of Prostate Cancer - Could be related to infection UTI vs prostatitis 11. Hyperchloremia - Likely due to IVF - IVF d/c - Free water per tube now 200 ml Q4h - Improved to 107 this AM Disposition: Guarded, will continue current plan of care and defer to pulmonology for timing of extubation
[2018-02-18 07:11] LABS: Hemoglobin 9.5 g/dL (14.0-18.0); Mean Corpuscular HGB CONC 32.6 g/dL (32.0-36.0); Mean Corpuscular Hemoglobin 31.5 pg (27.0-31.0); Mean Corpuscular Volume 96.6 fL (78.0-98.0); Mean Platelet Volume 8.5 fL (7.4-10.4); Platelet Count 126 thou/uL (130-400); RBC Distribution Width 13.3 % (11.5-14.5); Red Blood Cell (RBC) Count 3.03 mill/uL (4.70-6.10); White Blood Cell (WBC) Count 10.2 thou/uL (4.8-10.8)
[2018-02-18 07:12] LABS: Band 23 % (5-11); Eosinophils 3 % (0-10); Lymphocytes 21 % (21-51); MDiff Complete? YES; Metamyelocyte 4 % (0-0); Monocytes 6 % (0-10); Myelocyte 4 % (0-0); Neutrophil 39 % (42-75)
--- NOTE | 2018-02-18 07:47 | RAD ---
CHEST 1 VIEW: HISTORY: Dyspnea. Followup. FINDINGS: Cardiac silhouette is magnified and enlarged. Pulmonary vasculature is engorged and accentuated by s hallow inspiration. Patchy bibasilar infiltrates are similar in appearance to the prior study. Medi astinum is midline. Lines and tubes appear unchanged in position. campus monitor leads overlie the chest. IMPRESSION: Pulmonary vascular congestion and other findings are stable. POS: [facility]
[2018-02-18 08:06] LABS: Actual Bicarbonate (HCO3a) 25.3 mEq/L (22-28); Base Excess (BEa) 1.3 mEq/L (-2.0 to +3.0); CO2 Tension 37.5 mmHg (35.0-45.0); Calcium, Ionized 1.19 mmol/L (1.12-1.30); Hemoglobin (Hb) 10.3 g/dL (14.0-18.0); O2 Tension (PaO2) 85.2 mmHg (> 70.0); Potassium - ABG Lab 3.65 mmol/L (3.70-5.30); pH, Arterial 7.45 (7.35-7.45)
[2018-02-18 09:12] LABS: Puncture Site RRA
[2018-02-18 09:13] LABS: ALV-art Gradient 153.125 (0-20)
[2018-02-18] MEDS: Enoxaparin Sodium 40 MG/0.4 ML SYRINGE SC SCH (10:48)
[2018-02-18] MEDS: Tamsulosin HCl 0.4 MG CAP PO SCH (10:48)
[2018-02-18] MEDS: Polyethylene Glycol 3350 17 GM Packet PER TUBE SCH (10:49)
[2018-02-18] MEDS: Aspirin 81 mg Enteric Coated Tablet PO SCH ×2 (10:50→20:59)
--- NOTE | 2018-02-18 11:59 | PRG ---
DATE OF SERVICE: 02/18/2018 Thirty-five minutes critical care time. SUBJECTIVE: The patient remains intubated on mechanical ventilation. He is fairly sedated. On my i nitial encounter with him in the room this morning, the nurses in the process of trying to wake him u p. PHYSICAL EXAMINATION: VITAL SIGNS: Temperature 98.8 with no fever overnight, pulse 60, blood pressure 122/64. A 24-hour i ntake 4895, output 7720. HEENT: Unremarkable. NECK: No JVD. LUNGS: Clear without wheeze or rhonchi. CARDIOVASCULAR: S1, S2 regular. ABDOMEN: Soft, obese, nontender, nondistended. EXTREMITIES: No clubbing, cyanosis, or edema. LABORATORY DATA: PH 7.45, pCO2 37, pO2 85 on SIMV rate 4, tidal volume 550, PEEP 5, pressure support 10, FiO2 40%. Sodium 140, potassium 3.7, chloride 107, CO2 27, BUN 24, creatinine 1.2, glucose 147. White blood cell count 10.2, hematocrit 29.2, platelet count 126. Cultures are growing out E. coli . ASSESSMENT: 1. Pyelonephritis/kidney stone. 2. Respiratory failure requiring mechanical ventilation. 3. Encephalopathy. 4. Obesity. PLAN: We will hold sedation and reevaluate him for the potential for extubation once he is awake. H is blood gas looks good. I do not see any real deterrence to extubation on my initial survey, but I will check him again later.
--- NOTE | 2018-02-18 16:50 | EKG ---
Test Reason : Blood Pressure : / mmHG Vent. Rate : 090 BPM Atrial Rate : 090 BPM P-R Int : 154 ms QRS Dur : 094 ms QT Int : 362 ms P-R-T Axes : 026 -24 -07 degrees QTc Int : 442 ms Normal sinus rhythm Nonspecific ST abnormality Confirmed by KEV ROCHA ([id number]), telegraph editor MARION MARCELINO ([id number]) on 02/18/2018 4:49:43 PM Referred By: Confirmed By:KEV ROCHA
[2018-02-18] MEDS: Magnesium Oxide 250 MG TAB PO SCH (20:59)
[2018-02-19] MEDS: MEROPENEM 1 GM/50 ML 1 GM in Premix Bag 1 BAG IVPB SCH ×3 (02:19→16:44)
[2018-02-19] MEDS: Dextrose 5% in Water 1,000 ML IV SCH ×2 (03:21→16:43)
[2018-02-19 04:17] LABS: Anion Gap 8 mmol/L (10-20); BUN (Urea Nitrogen) 19 mg/dL (8.4-25.7); Calc. Creatinine Clearance 127 mL/min (70-130); Calcium 8.2 mg/dL (7.8-10.44); Carbon Dioxide 27 mmol/L (23-31); Chloride 109 mmol/L (98-107); Estimated GFR-MDRD 74; Glucose 115 mg/dL (83-110); Potassium 3.4 mmol/L (3.5-5.1); Sodium 141 mmol/L (136-145)
[2018-02-19 04:58] LABS: Band 16 % (5-11); Eosinophils 3 % (0-10); Hemoglobin 9.4 g/dL (14.0-18.0); Lymphocytes 11 % (21-51); MDiff Complete? YES; Mean Corpuscular HGB CONC 33.9 g/dL (32.0-36.0); Mean Corpuscular Hemoglobin 32.5 pg (27.0-31.0); Mean Corpuscular Volume 95.9 fL (78.0-98.0); Mean Platelet Volume 8.4 fL (7.4-10.4); Metamyelocyte 6 % (0-0); Monocytes 12 % (0-10); Myelocyte 1 % (0-0); Neutrophil 51 % (42-75); PLT Morphology Comment Appears Decreased; Platelet Count 83 thou/uL (130-400); RBC Distribution Width 13.1 % (11.5-14.5); RBC Morphology Normal; Red Blood Cell (RBC) Count 2.87 mill/uL (4.70-6.10); White Blood Cell (WBC) Count 9.1 thou/uL (4.8-10.8)
--- NOTE | 2018-02-19 06:11 | PDOC.FM ---
- Subjective Subjective: Feeling well this morning and denies any pain or discomfort. Nasal CPAP in place. Believes he just had a BM. - Objective MAR Reviewed: Yes Vital Signs & Weight: Vital Signs (12 hours) Temp Pulse Ox 02/19/18 04:00 98.0 F 02/19/18 00:00 98.7 F 02/18/18 20:00 98 02/18/18 19:00 98.2 F Weight Admit Weight 142.2 g Weight 144 kg Most Recent Monitor Data Heart Rate from ECG 74 NIBP 130/65 NIBP BP-Mean 86 Respiration from ECG 25 SpO2 95 I&O: 02/17/18 02/18/18 02/19/18 06:59 06:59 06:59 Intake Total 9034 7731 4842 Output Total 5509 7782 4200 [facility] -8 -2825 -1632 Result Diagrams: 02/19/18 06:13 02/19/18 03:40 Phys Exam - Physical Examination Constitutional: NAD dry MM, Nasal CPAP in place Neck: supple scattered expiratory wheezing, diminished air entry at bases Cardiovascular: RRR, no significant murmur heart sounds distant Gastrointestinal: soft, non-tender, positive bowel sounds Musculoskeletal: pulses present trace edema to mid-el BL Neurological: non-focal, moves all 4 limbs Psychiatric: normal affect, A&O x 3 Skin: no rash Dx/Plan (1) ESBL (extended spectrum beta-lactamase) producing bacteria infection Code(s): A49.9 - BACTERIAL INFECTION, UNSPECIFIED; Z16.12 - EXTENDED SPECTRUM BETA LACTAMASE (ESBL) RESISTANCE Status: Acute (2) Hyperchloremia Code(s): E87.8 - OTH DISORDERS OF ELECTROLYTE AND FLUID BALANCE, NEC Status: Acute (3) Sepsis Code(s): A41.9 - SEPSIS, UNSPECIFIED ORGANISM Status: Acute (4) Diabetes mellitus Code(s): E11.9 - TYPE 2 DIABETES MELLITUS WITHOUT COMPLICATIONS Status: Acute Qualifiers: Diabetes mellitus type: type 2 Diabetes mellitus complication status: without complication (5) Hypertension Code(s): I10 - ESSENTIAL (PRIMARY) HYPERTENSION Status: Acute (6) Total knee replacement status Code(s): Z96.659 - PRESENCE OF UNSPECIFIED ARTIFICIAL KNEE JOINT Status: Acute Qualifiers: Laterality: bilateral Qualified Code(s): Z96.653 - Presence of artificial knee joint, bilateral - Plan Plan: 77 yo M with acute respiratory failure 2/2 sepsis 1. Acute respiratory failure, s/p extubation on 02/18 - Successfully extubated at 11am yesterday, transition out of ICU per pulm - Comfortable on nasal CPAP this morning, VSS 2. Sepsis secondary to MDR e-coli UTI - Resolving - Dr. Ambrocio consulted, appreciate his recommendations - Meropenem 02/13 - IVF stopped , s/p levophed gtt - s/p stenting with Dr. Almeida - Contact precautions - Will need PICC prior to d/c for 2-4 weeks antibiotics 3. Thrombocytopenia - Abrupt drop today, likely lab variation, 147 on recheck - Continue to monitor 4. Recent Total knee replacement on right. - Appreciate Dr. Wong recommendations - Dr. Wong states no infection and benign knee exam 5. Atrial fibrillation with RVR - resolved - New onset - s/p Amiodarone loading dose - Amiodarone drip turned off and maintained NSR - Consider Cardiology consultation if indicated after acute stress episode has resolved 6. HTN - Hold medication at this time as BP stable and recently weaned off pressors 7.DM2 - SSI 8. Hx of Prostate Cancer - Could be related to infection UTI vs prostatitis 9. MEGHA, Hypomagnesemia, Hyperchloremia - Resolved 10. Hypokalemia - Replete today Disposition: Possible transfer out of ICU today or tomorrow
[2018-02-19 06:31] LABS: Platelet Count 147 thou/uL (130-400)
[2018-02-19] MEDS ORDERED: Potassium Chloride 40 MEQ in Premix Bag 1 BAG IVPB SCH (06:45)
--- NOTE | 2018-02-19 07:49 | RAD ---
CHEST 1 VIEW: HISTORY: Dyspnea. Followup. COMPARISON: 02/18/2018. FINDINGS: Cardiac silhouette is magnified and enlarged. Pulmonary vasculature remains engorged with patchy are as of bilateral perihilar and bibasilar infiltrates. The patient is slightly rotated rightward. End otracheal catheter no longer visible. Left internal jugular central venous catheter remains in place . Nasogastric tube not visualized. No evidence of pneumothorax. IMPRESSION: 1. Interval removal of the endotracheal catheter and nasogastric tube. 2. Pulmonary vascular congestion and other findings are otherwise stable. POS: [facility]
[2018-02-19] MEDS ORDERED: Bacitracin Zinc 1 Packet TOP PRN (07:53)
[2018-02-19] MEDS: Aspirin 81 mg Enteric Coated Tablet PO SCH ×2 (08:08→20:36)
[2018-02-19] MEDS: Polyethylene Glycol 3350 17 GM Packet PER TUBE SCH (08:08)
[2018-02-19] MEDS: Tamsulosin HCl 0.4 MG CAP PO SCH (08:08)
[2018-02-19] MEDS: Enoxaparin Sodium 40 MG/0.4 ML SYRINGE SC SCH (09:42)
--- NOTE | 2018-02-19 10:23 | PRG ---
DATE OF SERVICE: 02/19/2018 SUBJECTIVE: The patient is doing well this morning. He wants to get out. He has been weaned off th e high flow nasal cannula. He is on traditional nasal cannula. He says he is not having any shortne ss of breath. PHYSICAL EXAMINATION: VITAL SIGNS: His temperature is 98.4, pulse 60, blood pressure 138/72, 24-hour intake 2568, output 4 200. HEENT: Unremarkable. NECK: No JVD. LUNGS: Clear without wheezing or rhonchi. CARDIOVASCULAR: S1, S2 regular. ABDOMEN: Soft, obese, nontender. EXTREMITIES: No edema. IMAGING: His chest x-ray shows no evidence of mass, effusion, or infiltrate. LABORATORY DATA: WBC 9.1, hematocrit 27.6, platelet count 83. Sodium 141, potassium 3.4, chloride 1 09, CO2 of 27, BUN 19, creatinine 0.9, glucose 115. ASSESSMENT: 1. Pyelonephritis. 2. Status post respiratory failure. 3. Improved encephalopathy. PLAN: The patient can be sent out to the telemetry floor. The patient needs to initiate physical th erapy.
--- NOTE | 2018-02-19 19:32 | EKG ---
Test Reason : STAT TACHY Blood Pressure : / mmHG Vent. Rate : 125 BPM Atrial Rate : 120 BPM P-R Int : 000 ms QRS Dur : 096 ms QT Int : 340 ms P-R-T Axes : 000 -13 019 degrees QTc Int : 490 ms Atrial fibrillation with rapid ventricular response Abnormal ECG When compared with ECG of 12-JAN-2018 13:42, Atrial fibrillation has replaced Sinus rhythm Vent. rate has increased BY 62 BPM Nonspecific T wave abnormality has replaced inverted T waves in Inferior leads Confirmed by Carmina HERMOSILLO ([id number]) on 02/19/2018 7:31:42 PM Referred By: Miriam KAUFMAN Confirmed By:Carmina HERMOSILLO
[2018-02-19] MEDS: Magnesium Oxide 250 MG TAB PO SCH (20:36)
[2018-02-20] MEDS: MEROPENEM 1 GM/50 ML 1 GM in Premix Bag 1 BAG IVPB SCH ×3 (00:36→16:28)
[2018-02-20] MEDS: Dextrose 5% in Water 1,000 ML IV SCH ×3 (00:42→16:28)
--- NOTE | 2018-02-20 08:20 | PDOC.FM ---
- Subjective Subjective: This morning patient states he is breathing well. Denies sore throat, SOB, N/V/ D. Denies pain at this time. States he would like to start walking today. - Objective Vital Signs & Weight: Vital Signs (12 hours) Temp Pulse Resp BP Pulse Ox 02/20/18 04:00 97.6 F 73 20 134/67 93 L 02/20/18 00:12 97.3 F L 70 20 131/63 94 L 02/19/18 20:40 98.0 F 70 20 128/67 93 L Weight Admit Weight 142.2 g Weight 138.799 kg Most Recent Monitor Data Heart Rate from ECG 69 NIBP 142/86 NIBP BP-Mean 104 Respiration from ECG 20 SpO2 97 I&O: 02/19/18 02/20/18 02/21/18 06:59 06:59 06:59 Intake Total 2562 3344 Output Total 4200 3405 Balance -1632 -61 Result Diagrams: 02/19/18 06:13 02/19/18 03:40 <Ambrosio Fisher - Last Filed: 02/20/18 08:15> - Objective Vital Signs & Weight: Vital Signs (12 hours) Temp Pulse Resp BP Pulse Ox 02/20/18 07:40 98.9 F 67 20 134/62 94 L 02/20/18 04:00 97.6 F 73 20 134/67 93 L 02/20/18 00:12 97.3 F L 70 20 131/63 94 L Weight Admit Weight 142.2 g Weight 138.799 kg Most Recent Monitor Data Heart Rate from ECG 69 NIBP 142/86 NIBP BP-Mean 104 Respiration from ECG 20 SpO2 97 I&O: 02/19/18 02/20/18 02/21/18 06:59 06:59 06:59 Intake Total 0988 3344 Output Total 4200 3405 Balance -1632 -61 Result Diagrams: 02/19/18 06:13 02/19/18 03:40 <Esteban Gupta - Last Filed: 02/20/18 10:42> Phys Exam - Physical Examination Constitutional: NAD HEENT: PERRLA, moist MMs Neck: no nodes, full ROM mild wheezes, good air movement Cardiovascular: RRR, no significant murmur Gastrointestinal: soft, non-tender, no distention Musculoskeletal: no edema, pulses present Neurological: non-focal, moves all 4 limbs Psychiatric: normal affect, A&O x 3 Skin: no rash, cap refill <2 seconds <Ambrosio Fisher - Last Filed: 02/20/18 08:15> Dx/Plan (1) Atrial fibrillation with RVR Code(s): I48.91 - UNSPECIFIED ATRIAL FIBRILLATION Status: Acute (2) ESBL (extended spectrum beta-lactamase) producing bacteria infection Code(s): A49.9 - BACTERIAL INFECTION, UNSPECIFIED; Z16.12 - EXTENDED SPECTRUM BETA LACTAMASE (ESBL) RESISTANCE Status: Acute (3) Hyperchloremia Code(s): E87.8 - OTH DISORDERS OF ELECTROLYTE AND FLUID BALANCE, NEC Status: Acute (4) Hypotension Status: Acute (5) Respiratory distress Code(s): R06.03 - ACUTE RESPIRATORY DISTRESS Status: Acute (6) Sepsis Code(s): A41.9 - SEPSIS, UNSPECIFIED ORGANISM Status: Acute (7) Infected prosthetic knee joint Code(s): T84.59XA - INFECT/INFLM REACTION DUE TO OT INTERNAL JOINT PROSTH, INIT ; Z96.659 - PRESENCE OF UNSPECIFIED ARTIFICIAL KNEE JOINT Status: Ruled-out (8) Diabetes mellitus Code(s): E11.9 - TYPE 2 DIABETES MELLITUS WITHOUT COMPLICATIONS Status: Acute Qualifiers: Diabetes mellitus type: type 2 Diabetes mellitus complication status: without complication (9) History of prostate cancer Code(s): Z85.46 - PERSONAL HISTORY OF MALIGNANT NEOPLASM OF PROSTATE Status: Acute (10) Hypertension Code(s): I10 - ESSENTIAL (PRIMARY) HYPERTENSION Status: Acute (11) Total knee replacement status Code(s): Z96.659 - PRESENCE OF UNSPECIFIED ARTIFICIAL KNEE JOINT Status: Acute Qualifiers: Laterality: bilateral Qualified Code(s): Z96.653 - Presence of artificial knee joint, bilateral - Plan Plan: 77 yo M admitted for acute respiratory failure 2/2 sepsis from ESBL E. Coli # Acute respiratory failure, s/p extubation on 02/18- resolved - Successfully extubated 02/18, transitioned out of ICU 02/19 - Comfortable on nasal CPAP this morning, VSS # Sepsis secondary to MDR e-coli UTI - Dr. Ambrocio consulted, appreciate his recommendations - Meropenem 02/13 - IVF stopped , s/p levophed gtt - s/p stenting with Dr. Almeida - Contact precautions - Will need PICC prior to d/c for 2-4 weeks antibiotics # Thrombocytopenia- improved - Abrupt drop today, likely lab variation, 147 on recheck -trend # Recent Total knee replacement on right, 2 wks prior to admit - Appreciate Dr. Wong recommendations - Dr. Wong states no infection and benign knee exam # Atrial fibrillation with RVR- resolved - New onset - s/p Amiodarone loading dose - Amiodarone drip turned off and maintained NSR # HTN - Hold medication at this time as BP stable and recently weaned off pressors # DM2 - SSI # Hx of Prostate Cancer - Could be related to infection UTI vs prostatitis # MEGHA, Hypomagnesemia, Hyperchloremia - Resolved # Hypokalemia - monitor Disposition: plan for rehab sometime this week <Ambrosio Fisher - Last Filed: 02/20/18 08:15> Attending Addendum - Attending Addendum Date/Time: 02/20/18 1041 I personally evaluated the patient and discussed the management with Dr. Fisher. I agree with the History, Examination, Assessment and Plan documented above with any addition or exceptions noted below. Patient doing well this morning. Continues to be afebrile. 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 We have consulted rehab screening to see if he will be good candidate for that. Continue PT while here. Awaiting further Urology recs but anticipate discharge once placement has been arranged. <Esteban Gupta - Last Filed: 02/20/18 10:42>
[2018-02-20] MEDS: Tamsulosin HCl 0.4 MG CAP PO SCH (09:36)
[2018-02-20] MEDS: Aspirin 81 mg Enteric Coated Tablet PO SCH ×2 (09:36→20:53)
[2018-02-20] MEDS: Enoxaparin Sodium 40 MG/0.4 ML SYRINGE SC SCH (09:37)
[2018-02-20] MEDS: Polyethylene Glycol 3350 17 GM Packet PER TUBE SCH (09:37)
[2018-02-20 12:14] VITALS: BMI 41.4
--- NOTE | 2018-02-20 13:32 | SPC ---
ULTRASOUND GUIDED RIGHT UPPER EXTREMITY PICC LINE: Date: 02-20-18 History: Sepsis. Patient needs long-term IV antibiotics. Fluoroscopy: Total fluoroscopy time was 0.1 minutes, total does is 703 mGy*cm^2. Technique: After informed consent was obtained, the patient was placed on the angiography table in mares pine position. The right upper extremity was meticulously prepped and draped in usual sterile fashion . An appropriate access site was determined with ultrasound guidance. Skin and subcutaneous tissues wer e infiltrated with buffered 1% Lidocaine for local anesthesia. Utilizing concurrent real-time ultraso und guidance, the right basilic vein was accessed utilizing micropuncture technique. A 5 Bolivian peel- away sheath was placed. The catheter was measured and cut to the appropriate length. The catheter was placed over the guidewire with the tip positioned overlying the distal SVC. Guidewire and peel-away sheath were removed. The catheter was accessed and aspirated/flushed easily. The catheter was secured to the skin with dry sterile dressing. The patient tolerated the procedure w ell and without immediate complication. FINDINGS: Technically successful placement of a single lumen 5 Bolivian 42 cm PICC line via the right basilic vei n. Tip of the catheter overlies the distal SVC. IMPRESSION: Technically successful right upper extremity PICC line placement. POS: VINI
--- NOTE | 2018-02-20 14:37 | ADD-PRG ---
ADDENDUM DATE OF SERVICE: 02/18/2018 Please see the note from Dr. Sesay for which I agree. Patient was seen, evaluated, and examined wit h the residents at bedside and discussed with them. This is a 77-year-old gentleman who currently in tubated for an E. coli sepsis and then eventually needed a urological procedure. I think a stent was placed to with rapid ventricular response as well, but is currently still intubated and sounds like Pulmonology recommended he stays on the ventilator, probably through the weekend just to be sta ble where he is continuing on meropenem, Infectious Disease doctor for the resistant E. coli. Otherw ise, on exam, comfortable on the ventilator. states that he respond to her appropriately, follo wing commands. Chest is clear. Cardiovascular regular rate and rhythm. Abdomen benign. Plan is to continue taking antibiotics and supportive care.
--- NOTE | 2018-02-20 15:01 | ADD-PRG ---
ADDENDUM Please see the note from Dr. Sesay for which I agree. The patient was seen, evaluated and discussed with the residents by bedside. Basically, this gentleman was extubated yesterday and is currently keeping his oxygen level up on ashley al cannula O2. He is getting breathing treatments and has been fairly stable. Urosepsis is being tr eated with meropenem and it sounds stable. From that standpoint, cardiac aponte is also been stable as far as the history of atrial fibrillation goes. PHYSICAL EXAMINATION CHEST: Little bit tight with slightly prolonged expiration. No crackles. CARDIOVASCULAR: Regular rate and rhythm. ABDOMEN: Benign. EXTREMITIES: Show no edema or just trace. GENERAL: He is alert and oriented x3 and appropriate. PLAN: We will continue the same management in the ICU, may be able to get back to the floor. Need t o start working on physical therapy and occupational therapy stronger and we will continue same medicines including IV antibiotics currently.
--- NOTE | 2018-02-20 19:00 | PRG ---
DATE OF SERVICE: 02/20/2018 Mr. Holloway's encephalopathy cleared over the weekend. He was able to be extubated. He is on the tel emetry unit now. He has no complaints other than wanting to go home. OBJECTIVE: VITAL SIGNS: He is afebrile, heart rate 67, respiratory rate 20, oximetry is 94 on 2 liters, blood p ressure 138/73. LUNGS: Clear. CARDIOVASCULAR: Heart regular rhythm. ABDOMEN: Soft. IMPRESSION: 1. Status post mechanical ventilation after a cystoscopy and stent placement for pyelonephritis. 2. Metabolic encephalopathy that appears to have for the most part resolved. 3. Obesity. 4. Recurrent prostate cancer that has not been addressed yet per my discussion with Dr. Hahn. 5. Deconditioning with obesity. PLAN: Continue supportive care, physical therapy, eventual placement in rehab or long-term fac ility.
[2018-02-20] MEDS: Magnesium Oxide 250 MG TAB PO SCH (20:53)
[2018-02-21] MEDS: MEROPENEM 1 GM/50 ML 1 GM in Premix Bag 1 BAG IVPB SCH ×2 (01:07→08:59)
[2018-02-21 06:09] LABS: #Eosinphils 0.3 thou/uL (0.0-0.7); #Lymphocytes 1.1 thou/uL (1.20-3.40); #Monocytes 0.6 thou/uL (0.11-0.59); #Neutrophils 4.6 thou/uL (1.40-6.50); %Monocytes 8.5 % (0.0-10.0); %Neutrophils 70.4 % (42.0-75.0); Hemoglobin 10.7 g/dL (14.0-18.0); Mean Corpuscular HGB CONC 32.2 g/dL (32.0-36.0); Mean Corpuscular Hemoglobin 30.8 pg (27.0-31.0); Mean Corpuscular Volume 95.6 fL (78.0-98.0); Mean Platelet Volume 7.1 fL (7.4-10.4); Platelet Count 222 thou/uL (130-400); RBC Distribution Width 12.9 % (11.5-14.5); Red Blood Cell (RBC) Count 3.47 mill/uL (4.70-6.10); White Blood Cell (WBC) Count 6.5 thou/uL (4.8-10.8)
[2018-02-21 06:26] LABS: Anion Gap 12 mmol/L (10-20); BUN (Urea Nitrogen) 17 mg/dL (8.4-25.7); Calc. Creatinine Clearance 115 mL/min (70-130); Calcium 8.6 mg/dL (7.8-10.44); Carbon Dioxide 26 mmol/L (23-31); Chloride 105 mmol/L (98-107); Estimated GFR-MDRD 71; Glucose 136 mg/dL (83-110); Potassium 3.5 mmol/L (3.5-5.1); Sodium 139 mmol/L (136-145)
[2018-02-21] MEDS: Dextrose 5% in Water 1,000 ML IV SCH (06:49)
--- NOTE | 2018-02-21 07:55 | PRG ---
DATE OF SERVICE: 02/20/2018 SUBJECTIVE: Patient has been transferred to the telemetry unit, extubated. OBJECTIVE: GENERAL: Oriented, follows commands. in the room with him. No acute distress with O2 nasal can nula. VITAL SIGNS: T-max is 98.2, blood pressure 140/70, pulse 70, respirations 20, O2 saturations 94%. HEENT: Ocular movements conjugate and no acute distress. LUNGS: Symmetric air entry. HEART: S1, S2. Regular rate. ABDOMEN: Soft. LABORATORY DATA: White cell count 9.1, hemoglobin 9.4. Chemistry is not remarkable except potassium 3.4. Currently on meropenem to be continued, Dr. Almeida reportedly trying to planning a lithotripsy in the next few days. After that, continue meropenem for another 10 days approximately.
--- NOTE | 2018-02-21 07:55 | PDOC.EVN ---
Attending Addendum - Attending Addendum Date/Time: 02/21/18 075 I personally evaluated the patient and discussed the management with Dr. Fisher. I agree with the History, Examination, Assessment and Plan documented in his progress note with any addition or exceptions noted below. Patient doing well this morning and has no complaints. He does mention that he has seen some "bugs" and he thinks they are in his hair. There is nothing visible and I anticipate this is due to some post ICU delirium. Will reassess later this morning once we are sure he is oriented and awake. He denies pain. Had PICC placed yesterday. Will need mcc Meropenem due to his bacteremia. ID on board. We are awaiting approval for Rehab, continue PT while in house. Should be stable for discharge to rehab or SNF once he is approved.
--- NOTE | 2018-02-21 07:57 | PDOC.FM ---
- Subjective Subjective: Up to chair this AM. Patient states he is feeling great. Denies pain or SOB. No cough. Patient and are looking forward to rehab. - Objective Vital Signs & Weight: Vital Signs (12 hours) Temp Pulse Resp BP Pulse Ox 02/21/18 04:00 97.1 F L 61 22 H 131/71 95 02/21/18 00:00 98.9 F 71 24 H 132/63 93 L 02/20/18 20:15 94 L 02/20/18 20:10 98.4 F 73 24 H 141/73 H 94 L Weight Admit Weight 142.8 kg Weight 134.581 kg Most Recent Monitor Data Heart Rate from ECG 69 NIBP 142/86 NIBP BP-Mean 104 Respiration from ECG 20 SpO2 97 I&O: 02/20/18 02/21/18 02/22/18 06:59 06:59 06:59 Intake Total 3344 3140 Output Total 3405 3490 Balance -61 -350 Result Diagrams: 02/21/18 05:59 02/21/18 05:59 Phys Exam - Physical Examination Constitutional: NAD HEENT: PERRLA, moist MMs Neck: no nodes, full ROM Respiratory: no wheezing, clear to auscultation bilateral Cardiovascular: RRR, no significant murmur Gastrointestinal: soft, non-tender, no distention, positive bowel sounds Musculoskeletal: no edema, pulses present Neurological: non-focal, moves all 4 limbs Psychiatric: normal affect, A&O x 3 Skin: no rash, cap refill <2 seconds Dx/Plan (1) Atrial fibrillation with RVR Code(s): I48.91 - UNSPECIFIED ATRIAL FIBRILLATION Status: Acute (2) ESBL (extended spectrum beta-lactamase) producing bacteria infection Code(s): A49.9 - BACTERIAL INFECTION, UNSPECIFIED; Z16.12 - EXTENDED SPECTRUM BETA LACTAMASE (ESBL) RESISTANCE Status: Acute (3) Hyperchloremia Code(s): E87.8 - OTH DISORDERS OF ELECTROLYTE AND FLUID BALANCE, NEC Status: Acute (4) Hypotension Status: Acute (5) Respiratory distress Code(s): R06.03 - ACUTE RESPIRATORY DISTRESS Status: Acute (6) Sepsis Code(s): A41.9 - SEPSIS, UNSPECIFIED ORGANISM Status: Acute (7) Infected prosthetic knee joint Code(s): T84.59XA - INFECT/INFLM REACTION DUE TO OTH INTERNAL JOINT PROSTH, INIT ; Z96.659 - PRESENCE OF UNSPECIFIED ARTIFICIAL KNEE JOINT Status: Ruled-out (8) Diabetes mellitus Code(s): E11.9 - TYPE 2 DIABETES MELLITUS WITHOUT COMPLICATIONS Status: Acute Qualifiers: Diabetes mellitus type: type 2 Diabetes mellitus complication status: without complication (9) History of prostate cancer Code(s): Z85.46 - PERSONAL HISTORY OF MALIGNANT NEOPLASM OF PROSTATE Status: Acute (10) Hypertension Code(s): I10 - ESSENTIAL (PRIMARY) HYPERTENSION Status: Acute (11) Total knee replacement status Code(s): Z96.659 - PRESENCE OF UNSPECIFIED ARTIFICIAL KNEE JOINT Status: Acute Qualifiers: Laterality: bilateral Qualified Code(s): Z96.653 - Presence of artificial knee joint, bilateral - Plan Plan: 77 yo M admitted for acute respiratory failure 2/2 sepsis from ESBL E. Coli # Acute respiratory failure, s/p extubation on 02/18- resolved - Successfully extubated 02/18, transitioned out of ICU 02/19 - on o2 overnight # Sepsis secondary to MDR e-coli UTI - Dr. Ambrocio consulted, appreciate his recommendations - Meropenem 02/13 - IVF stopped , s/p levophed gtt - s/p stenting with Dr. Almeida - Contact precautions -PICC placed yesterday # Hx of Prostate Cancer - PSA 1.01 - will discuss further workup with Urology # Thrombocytopenia- improved -trend # Recent Total knee replacement on right, 2 wks prior to admit - Appreciate Dr. Wong recommendations - Dr. Wong states no infection and benign knee exam # Atrial fibrillation with RVR- resolved - New onset - s/p Amiodarone loading dose - Amiodarone drip turned off and maintained NSR # HTN - Hold medication at this time as BP stable and recently weaned off pressors # DM2 - SSI # MEGHA, Hypomagnesemia, Hyperchloremia - Resolved # Hypokalemia - monitor Disposition: d/c to rehab when placement is obtained
[2018-02-21] MEDS: Enoxaparin Sodium 40 MG/0.4 ML SYRINGE SC SCH (09:00)
[2018-02-21] MEDS: Polyethylene Glycol 3350 17 GM Packet PER TUBE SCH (09:01)
[2018-02-21] MEDS: Aspirin 81 mg Enteric Coated Tablet PO SCH (09:01)
[2018-02-21] MEDS: Tamsulosin HCl 0.4 MG CAP PO SCH (09:07)
--- NOTE | 2018-02-21 10:42 | PDOC.EVN ---
Event Note - Event Note Event Note: Spoke to Dr. Hahn, Plans for Lithotripsy late next week States office will f/u up with patient at rehab facility
[2018-02-21 12:27] VITALS: BP 149/71; TEMP 98.3
--- NOTE | 2018-02-21 15:00 | PRG ---
DATE OF SERVICE: 02/21/2018 SUBJECTIVE: Mr. Holloway has tentatively been improved to move into a rehab environment. He has no p ulmonary complaints. He denies having pain. OBJECTIVE: VITAL SIGNS: He is afebrile, heart rate is 67, respiratory rate 20, oximetry is 91 on 2 liters, bloo d pressure 149/71. LUNGS: Clear. HEART: Regular rhythm. ABDOMEN: Soft. LABORATORY DATA: White count 6.5, hemoglobin 10.7, platelets 222. Electrolytes were normal today. IMPRESSION: Status post urinary tract sepsis, secondary to nephrolithiasis with Escherichia coli jonn t is resistant to multiple drugs. PLAN: Continue antimicrobial therapy. Transfer to rehab environment. I will see him as needed in t he future.
[2018-02-21] MEDS ORDERED: Naproxen 500 MG TAB PO PRN (15:30)
--- NOTE | 2018-02-22 15:33 | DIS-2 ---
DATE OF ADMISSION: 02/12/2018 DATE OF DISCHARGE: 02/21/2018 RESIDENT: Dr. Ambrosio Fisher. ADMITTING ATTENDING: Dr. Kika Messina. DISCHARGE ATTENDING: Dr. Esteban Gupta. CONSULTATIONS: Pulmonology, Infectious Disease, Orthopedics. PROCEDURES: See hospital course. PRIMARY DIAGNOSIS: Multiple drug resistant Escherichia coli bacteremia. SECONDARY DIAGNOSES: Acute respiratory failure, sepsis, history of prostate cancer, thrombocytopenia , recent total knee replacement, atrial fibrillation with RVR, hypertension, diabetes type 2, acute k idney injury, hypokalemia. DISCHARGE MEDICATIONS: Meropenem 1 gram t.i.d. until 03/12/2018, Flomax, metformin, doxazosin, vitam in D, magnesium, glipizide, aspirin, naproxen, lisinopril. HISTORY OF PRESENT ILLNESS AND HOSPITAL COURSE: Please see transition of care note signed by Dr. Jannet Montoya on 02/17/2018 (in the EMR under event note). Patient is a 77-year-old male who presented to ED on 02/11/2018 with acute shortness of breath when h e sat down for dinner. Patient had a recent right knee replacement approximately 2 weeks ago it was h ealing well. Patient initially placed on BiPAP and worked up for DVT, PE was started. DVT/PE was ru led out with imaging. Patient had ProCal greater than 90. He also had broad spectrum antibiotics st arted at that time for a suspected sepsis without a source. Dr. Wong, orthopedics was consulted and saw the patient. Stated that the infection could not be coming from the knee and needed to be wo rked up for a different source. The patient had imaging that showed multiple kidney stones present. Patient was taken back for the p rocedure and had ureteral stent placed by Urology. Patient was intubated for the procedure on 02/13. Patient had UA come back with probable source. Patient then had blood cultures and urine cultures that grew out ESBL E. coli. Dr. Ambrocio, infectious disease was consulted and initiated meropenem. Patient had MEGHA along with hyperkalemia likely secondary to sepsis and subsequent IVF management. Hi s current IVF is D5W along with free water, NG feeds at 200 mL q.4 hours. As of 02/17, patient was unable to wean off ventilator per home. Patient was extubated successfully on 02/18 and out of the ICU on 02/19. He continued with meropenem to treat his E. coli. A PICC line was placed on 02/20, which he could go home with. Throughout the days 02/20/2018 and 02/21/2018, patient continued to improve in strength, get him to t he point where he was able to tolerate sitting up in the chair and taking a few steps at a time. Dis cussion was held with family and decided that inpatient rehab would be the best place for him to cont inue to get his strength back. At the time of discharge, he was off supplemental oxygen. His thromb ocytopenia had improved. There were no recent episodes of atrial fibrillation with RVR, which the shruthi brown has had earlier during the admission had been treated with amiodarone. DISPOSITION: Stable. DISCHARGE INSTRUCTIONS: 1. Location: Inpatient rehabilitation. 2. Diet: Regular. 3. Activity: As tolerated. 4. Follow up: Inpatient rehab doctors. Primary care physician shortly after discharge from rehabil itation. Pulmonology as needed. Patient needs to stay on meropenem until at 03/12. Dr. Hahn's of [facility] is going to follow up with the patient to schedule another ureteral stent sometime around 2017. The patient will have to be on meropenem for 10 days after this procedure, which puts it about 03/12. Dr. Ambrocio with Infectious Disease will follow the patient at rehab as needed.
== END 2018-02-21 17:43 | DRG 853 ==
LOC: ERS 17:38 → CCU 02-12 01:17 → 2NO 02-19 12:22
PROVIDERS: ADMIT Family Medicine; ATTEND Family Medicine
PROC: 0T768DZ Dilation of Right Ureter with Intraluminal Device, Via Natural or Artificial Opening Endoscopic (ICD-10-PCS; principal; 2018-02-13)
PROC: BT141ZZ Fluoroscopy of Kidneys, Ureters and Bladder using Low Osmolar Contrast (ICD-10-PCS; 2018-02-13)
PROC: 0DH67UZ Insertion of Feeding Device into Stomach, Via Natural or Artificial Opening (ICD-10-PCS; 2018-02-14)
PROC: 3E0G76Z Introduction of Nutritional Substance into Upper GI, Via Natural or Artificial Opening (ICD-10-PCS; 2018-02-14)
PROC: 5A1945Z Respiratory Ventilation, 24-96 Consecutive Hours (ICD-10-PCS; 2018-02-14)
PROC: 0BH17EZ Insertion of Endotracheal Airway into Trachea, Via Natural or Artificial Opening (ICD-10-PCS; 2018-02-14)
PROC: 02HV33Z Insertion of Infusion Device into Superior Vena Cava, Percutaneous Approach (ICD-10-PCS; 2018-02-20)
PROC: B548ZZA Ultrasonography of Superior Vena Cava, Guidance (ICD-10-PCS; 2018-02-20)
DX: A41.51 Sepsis due to Escherichia coli [E. coli] (principal); J96.01 Acute respiratory failure with hypoxia; R65.21 Severe sepsis with septic shock; G93.41 Metabolic encephalopathy; N39.0 Urinary tract infection, site not specified; N17.9 Acute kidney failure, unspecified; Z68.41 Body mass index [BMI] 40.0-44.9, adult; N20.1 Calculus of ureter; E11.9 Type 2 diabetes mellitus without complications; I10 Essential (primary) hypertension; E78.5 Hyperlipidemia, unspecified; Z85.46 Personal history of malignant neoplasm of prostate; Z96.659 Presence of unspecified artificial knee joint; D70.9 Neutropenia, unspecified; E83.42 Hypomagnesemia; Z96.651 Presence of right artificial knee joint; I48.91 Unspecified atrial fibrillation; E87.8 Other disorders of electrolyte and fluid balance, not elsewhere classified; E66.9 Obesity, unspecified
CPT/HCPCS: 36415; 36416; 36556; 36569; 71045; 71275; 74176; 74420; 76770; 80048; 80053; 80170; 80202; 81003; 81015; 82553; 82805; 83605; 83735; 83880; 84145; 84153; 84484; 85025; 85379; 87040; 87077; 87086; 87149; 87186; 90471; 90670; 93005; 93010; 93970; 94002; 94003; 94640; 94660; 96361; 96365; 96366; 96367; 96368; 96375; 99292; C1751; C1758; C1769; G0009; G8978-GP-CL; G8979-GP-CK; G8987-GO-CM; G8988-GO-CM; G8989-GO-CM; G8996-GN-CJ; G8997-GN-CH; J0282; J0696; J1580; J1630; J1650; J1940; J2001; J2060; J2185; J2405; J2543; J2704; J3010; J3370; J3475; J3480; J7050; J7070; J7611; Q9961

== ENCOUNTER 2018-02-24 16:33 | Outpatient (CLI) | payer MEDICARE ==
--- NOTE | 2018-02-24 17:27 | RAD ---
CHEST TWO VIEWS: 02/24/18 HISTORY: 77-year-old male with history of respiratory distress. Right PICC line in place. Increased markings in both bases, more so in the left base including the re trocardiac region but stable from 02/19/18. The mid and upper lung zones are clear. IMPRESSION: Increased markings in the bases, worse in the left breast, evidence for some subsegmental atelectasis , chronic change or mild pneumonitis. Appearance is not significantly changed from 02/19/18 one view c hest. POS: TPC
== END 2018-02-24 16:34 | disposition home or self-care (01) ==
LOC: RAD 16:33
PROVIDERS: ATTEND Physical Medicine & Rehabilitation
DX: E11.9 Type 2 diabetes mellitus without complications (principal); I10 Essential (primary) hypertension; A41.9 Sepsis, unspecified organism; R06.03 Acute respiratory distress; E78.00 Pure hypercholesterolemia, unspecified; J98.11 Atelectasis
CPT/HCPCS: 71046

== ENCOUNTER 2018-03-01 10:55 | Day surgery (SDC) | payer MEDICARE ==
[2018-02-28 11:26] VITALS: BMI 40.9
[2018-03-01] MEDS ORDERED: Iothalamate Meglumine 60% 50 ML VIAL FS ONE (11:14)
[2018-03-01] MEDS ORDERED: Fentanyl 100 MCG/2 ML VIAL ONE (12:31)
[2018-03-01] MEDS ORDERED: Ketamine 50 MG/ML VIAL ONE (12:33)
--- NOTE | 2018-03-01 14:27 | RAD ---
RETROGRADE PYELOGRAM: Technique: Nine images taken in the OR under fluoroscopy during a retrograde procedure are presented. Indication: Intraoperative imaging during right ureteroscopy and stent exchange. FINDINGS/IMPRESSION: Images show opacification of the right collecting structures with placement of wire and replacement o f the right ureteral stent. POS: TPC
[2018-03-01] MEDS ORDERED: Dexamethasone 20 MG/5 ML VIAL ONE (15:07)
[2018-03-01] MEDS ORDERED: PROPOFOL 200 MG/20 ML VIAL ONE (15:07)
[2018-03-01] MEDS ORDERED: Ondansetron HCl/PF 4 MG/2 ML Vial ONE (15:07)
[2018-03-01] MEDS ORDERED: ePHEDrine/0.9% NaCl/PF SYRINGE 50 mg/10 ml ONE (15:07)
[2018-03-01] MEDS ORDERED: Glycopyrrolate 0.2 MG/ML 5 ML SYRINGE ONE (15:07)
[2018-03-01] MEDS ORDERED: PHENYLEPHRINE-NS 100 MCG/ML 10 ML SYRINGE ONE (15:07)
[2018-03-01] MEDS ORDERED: Sodium Chloride 0.9% 0 ML ONE (17:03)
[2018-03-01] MEDS ORDERED: Sodium Chloride 0.9% 10 ML ONE (17:03)
--- NOTE | 2018-03-01 19:49 | OP ---
DATE OF PROCEDURE: 03/01/2018 PREOPERATIVE DIAGNOSIS: Right distal ureteral stone and right ureteral stent. PROCEDURE PERFORMED: Cystoscopy, removal of stent, right rigid ureteroscopy, stone retrieval, and stent replacement. SURGEON: Dr. Reyes Hahn. ANESTHETIC: General. ESTIMATED BLOOD LOSS: Minimal. FINDINGS: He had no urethral stricture disease. He has an enlarged prostate. The bladder was without any tumor, foreign body, or stone. The stent was removed intact without difficulty and the stones were removed from the basket without difficulty. OPERATIVE TECHNIQUE: Obtained written and verbal consent from the patient. He did not require any IV antibiotics. He is on scheduled meropenem at the [facility] where he recieved a dose this morning. He was taken to the operating suite. He was placed in the supine position on treatment table. PlexiPulses were placed on his lower extremities and turned on. He was given a general anesthetic, oral obturator intubation. He was placed in the dorsal lithotomy position carefully and sterilely prepped and draped. Cystoscopy was performed with a 22-Filipino sheath. This was well lubricated, passed under direct vision through the male urethra into the urinary bladder with aid of a video camera and monitor. The bladder was filled and emptied a number of times and the distal end of the double-J stent was grasped and brought out through the urethral meatus. A guidewire was fed through this and the stent was removed over the guidewire and discarded. A small caliber graduated rigid ureteroscope was brought in and using a video camera and monitor, it was passed through the male urethra and into the bladder and up adjacent to the guidewire into the distal ureter where two stones were identified. The smaller stone was basketed and dropped into the bladder. The larger one was basketed and removed intact. Repeat ureteroscopy up to the level of vessel showed no evidence of further stones. At this point, the instruments were removed. The guidewire was backloaded through the cystoscope which was replaced. A 5-Filipino Pollack catheter was placed over the guidewire up in the ureter and renal pelvis. Contrast was placed through the open-ended catheter to fill out the renal pelvis and the ureter without any evidence of obstruction or extravasation of persistent filling defect. The guidewire was replaced. The open-ended catheter was removed and then a 6 x 26 Polaris double-J stent was pushed over the guidewire and placed up in the renal pelvis with the aid of a pusher, so its proximal end coiled in the renal pelvis and its distal end coiled in the bladder and the wire was removed. A string was left attached to it coming out of the urethral meatus. The bladder and the instruments were removed. We did not replace the Greenberg catheter. I think he probably should be able to resume normal urination, so we will leave the catheter out and give him a few hours to try to urinate. At this point, he was taken out of the dorsal lithotomy position, awakened, extubated, and taken by stretcher to the recovery room. DIANELYS
== END 2018-03-01 17:30 ==
LOC: SDC 10:55
PROVIDERS: ATTEND Urology
PROC: 0TC68ZZ Extirpation of Matter from Right Ureter, Via Natural or Artificial Opening Endoscopic (ICD-10-PCS; principal; 2018-03-01)
PROC: 0T768DZ Dilation of Right Ureter with Intraluminal Device, Via Natural or Artificial Opening Endoscopic (ICD-10-PCS; principal; 2018-03-01)
DX: N20.1 Calculus of ureter (principal); E11.9 Type 2 diabetes mellitus without complications; I10 Essential (primary) hypertension; Z79.82 Long term (current) use of aspirin; Z79.4 Long term (current) use of insulin; Z79.899 Other long term (current) drug therapy
CPT/HCPCS: 74420; C1758; J1100; J2405; J2704; J3010; J7050; Q9961

== ENCOUNTER 2019-02-08 06:53 | Outpatient (CLI) | payer MEDICARE ==
--- NOTE | 2019-02-08 08:04 | MRI ---
MRI lumbar spine without contrast: 02/08/2019 COMPARISON: None HISTORY: Lower extremity weakness TECHNIQUE: Multiplanar multisequence MR imaging of lumbar spine without contrast FINDINGS: Sagittal STIR imaging demonstrates no focal area of osseous marrow edema. On the basis of 5 lumbar type vertebral bodies, the conus medullaris terminates at the L1 level. T12-L1: Mild anterior osteophyte formation. Mild bilateral facet hypertrophy. No significant central canal or neural foraminal stenosis L1-2: Mild bilateral facet hypertrophy. Intervertebral disc height and signal intensity grossly unrem arkable with no significant central canal or neural foraminal stenosis. L2-3: Mild bilateral facet hypertrophy and hypertrophy of ligamentum flavum. Disc desiccation with no significant central canal or neural foraminal stenosis. L3-4: There is disc desiccation. There is severe bilateral facet hypertrophy and hypertrophy of the l igamentum flavum. There are medially projecting osteophytes emanating from bilateral facet joints and there are also medially projecting small synovial cysts bilaterally extending into the central ca nal, each measuring in the 4-5 mm range. This leads to severe central canal stenosis. There is mild bilateral neural foraminal stenosis. There is fluid seen within bilateral facet joints which can be s een on the basis of instability. L4-5: Disc space narrowing and disc desiccation noted. Prominent bilateral facet hypertrophy with mod erate central canal stenosis and mild bilateral neural foraminal stenosis. L5-S1: Disc space narrowing and disc desiccation noted with a central disc osteophyte complex. Mild c entral canal stenosis. Mild bilateral facet hypertrophy. Mild right neural foraminal stenosis. Review of the retroperitoneal structures demonstrate a prominent incompletely imaged cyst in the cent ral aspect of the left kidney. IMPRESSION: Prominent multilevel degenerative change noted within the lumbar spine. Most significant findings are at the L3-4 level where there is severe central canal stenosis, primarily on the basis of significant bilateral facet disease as detailed above.
== END 2019-02-08 06:54 | disposition home or self-care (01) ==
LOC: SCSMRI 06:53
PROVIDERS: ATTEND Orthopaedic Surgery
DX: R29.898 Other symptoms and signs involving the musculoskeletal system (principal); M47.816 Spondylosis without myelopathy or radiculopathy, lumbar region; M48.061 Spinal stenosis, lumbar region without neurogenic claudication
CPT/HCPCS: 72148

== ENCOUNTER 2019-04-27 13:21 | Outpatient (CLI) | payer MEDICARE ==
--- NOTE | 2019-04-27 14:28 | RAD ---
Exam: 4 views lumbar spine HISTORY: Synovial cysts. COMPARISON: none FINDINGS: 5 lumbar type vertebra. Vertebral body height is maintained. No fracture. Moderate degenera tive disc disease at L4-L5 and L5-S1 Neutral position: 4.1 mm of anterolisthesis of L3 upon L4 Flexion: 4 mm of anterolisthesis of L3 upon L4 Extension: 4.2 mm of anterolisthesis of L3 upon L4 IMPRESSION: 1. Degenerative changes at grade 1 spondylolisthesis.
--- NOTE | 2019-04-27 15:12 | RAD ---
RADIOGRAPH CERVICAL SPINE 5 VIEWS: DATE: 04/27/2019. HISTORY: A 78-year-old male with bilateral lower extremity weakness and cervicalgia. TECHNIQUE: Three lateral views in flexion, extension, and neutral. Swimmer's view. AP view. FINDINGS: The patient is very kyphotic, such that the cervical spine position on the neutral view is approximat mohnii 45 degrees between vertical and horizontal. On the neutral view, there is minimal grade I antonio listhesis of C4 on C5 and mild grade I anterolisthesis of C5 on C6. On the extension view, there is almost no difference in position compared to the ventral view, with p oor range of motion. On flexion, the cervical spine is almost horizontal. There are slightly greater degrees of anterolis thesis of C3 on C4, and C4 on C5. No major interval change in the minimal anterolisthesis of C5 on C 6. There are anterior bridging osteophytes at C6-7 protruding into the prevertebral space. Vertebra l body heights are maintained. Disk space narrowing is mild at C5-6 and C6-7. There are degenerativ e facet changes at multiple levels on the right side, especially in the upper levels. IMPRESSION: 1. Exaggerated kyphosis at cervicothoracic junction. 2. Minimal spondylolistheses at mid and lower levels, with minimal instability during flexion. 3. Poor range of motion during extension. 4. Cervical spondylosis consisting of multilevel right-sided facet osteoarthrosis. SAMI [] POS: VINI
--- NOTE | 2019-04-27 15:54 | MRI ---
Exam: MRI cervical spine without contrast HISTORY: Neurogenic claudication. Balance problems.. COMPARISON: None FINDINGS: Straightening of normal cervical lordosis may be due to patient position, muscle spasm. No significa nt STIR hyperintensity to suggest vertebral body edema or ligamentous injury. Visualized brain parenchyma, cervicomedullary junction, cervical cord and the upper thoracic cord hav e a normal size and signal intensity Spondylolisthesis: C5-C6: 1.7 mm of anterolisthesis C2-C3: No significant central canal stenosis or significant neural foraminal narrowing C3-C4: No significant central canal stenosis or significant neural foraminal narrowing C4-C5: Broad-based disc bulge abuts the thecal sac. Subarachnoid space is maintained. No significant central canal stenosis or significant neural foraminal narrowing. C5-C6: Mild loss of disc space height. Broad-based disc osteophyte complex nearly effaces the subarac hnoid space. Mild central canal stenosis. Mild right foraminal narrowing due to uncovertebral hypertrophy. Left neural foramen is patent C6-C7: Moderate loss of disc space height. Broad-based disc osteophyte, complex abuts the thecal sac. Subarachnoid space maintained. I'll central canal stenosis. Right neural foramen is patent. Mild left foraminal narrowing due to uncovertebral hypertrophy C7-T1: No significant central canal stenosis or significant neural foraminal narrowing IMPRESSION: Degenerative changes of the cervical spine as above
--- NOTE | 2019-04-27 16:00 | MRI ---
MRI thoracic spine without contrast HISTORY: Balance problems. Neurogenic claudication. COMPARISON: None FINDINGS: Appropriate T1 marrow signal intensity of the thoracic vertebra. Thoracic spine vertebral body height is maintained. No fracture. No significant STIR hyperintensity to suggest vertebral body edema or ligamentous injury Visualized mediastinal structures, lung parenchyma and solid organs are grossly unremarkable. Conus medullaris terminates at the mid L1 level. The thoracic cord has a normal size and signal inten sity. No cord malacia. No cord expansion. Throughout the thoracic spine, the neural foramina appear to be patent. T7-T8: Mild loss of disc space height. There appears to be a broad-based disc bulge with at least mil [id number] central canal stenosis. Throughout the remainder the thoracic spine, the central spinal canal is patent IMPRESSION: 1. Mild to moderate central canal stenosis at the T7-T8 secondary to a central/left paracentral disc bulge.
== END 2019-04-27 13:22 | disposition home or self-care (01) ==
LOC: SCSMRI 13:21
PROVIDERS: ATTEND Physician Assistant Surgical
DX: M48.062 Spinal stenosis, lumbar region with neurogenic claudication (principal); M71.30 Other bursal cyst, unspecified site; R26.89 Other abnormalities of gait and mobility; M54.5 Low back pain; M40.203 Unspecified kyphosis, cervicothoracic region; M43.12 Spondylolisthesis, cervical region; M47.812 Spondylosis without myelopathy or radiculopathy, cervical region; M43.16 Spondylolisthesis, lumbar region; M47.816 Spondylosis without myelopathy or radiculopathy, lumbar region; M48.04 Spinal stenosis, thoracic region; M51.84 Other intervertebral disc disorders, thoracic region
CPT/HCPCS: 72050; 72110; 72141; 72146

== ENCOUNTER 2021-11-23 21:35 | Observation (INO) | payer MEDICARE ==
[2021-11-24] MEDS ORDERED: Ondansetron ODT 4 MG TAB SL PRN (02:00)
[2021-11-24] MEDS ORDERED: Ondansetron PF 4 MG/2 ML Vial IVP PRN (02:00)
[2021-11-24] MEDS ORDERED: Lactated Ringer's 1,000 ML IV SCH (02:00)
[2021-11-24] MEDS ORDERED: Acetaminophen 325 MG TAB PO PRN (02:00)
[2021-11-24 02:59] VITALS: BMI 37.3
[2021-11-24] MEDS ORDERED: Dextrose 50% Abboject 50 ML SYRINGE SLOW IVP PRN (03:58)
[2021-11-24] MEDS ORDERED: HumaLOG 300 UNITS/3 ML VIAL SC PRN (03:58)
[2021-11-24] MEDS ORDERED: Dextrose 5% in Water 1,000 ML IV PRN (03:58)
[2021-11-24 06:17] LABS: Anion Gap 18 mmol/L (10-20); BUN (Urea Nitrogen) 18 mg/dL (8.4-25.7); Calc. Creatinine Clearance 153 mL/min (70-130); Calcium 8.3 mg/dL (7.8-10.44); Carbon Dioxide 22 mmol/L (23-31); Chloride 101 mmol/L (98-107); Estimated GFR 94; Glucose 115 mg/dL (83-110); Potassium 4.1 mmol/L (3.5-5.1); Sodium 137 mmol/L (136-145)
[2021-11-24] MEDS ORDERED: Doxazosin 2 MG TAB PO SCH (09:00)
[2021-11-24] MEDS: Aspirin 81 mg Enteric Coated Tablet PO SCH (09:17)
[2021-11-24] MEDS: Calcium Carbonate 600 MG + Vit D TAB PO SCH (09:18)
[2021-11-24] MEDS: Enoxaparin Sodium 40 MG/0.4 ML SYRINGE SC SCH (09:18)
[2021-11-24] MEDS: Rosuvastatin 10 MG TAB PO SCH (09:18)
[2021-11-24] MEDS: Tamsulosin HCl 0.4 MG CAP PO SCH (09:18)
[2021-11-24] MEDS: Multivitamin W/ Minerals 1 TAB PO SCH (09:18)
[2021-11-24] MEDS: Finasteride 5 MG TAB PO SCH (09:18)
[2021-11-24] MEDS: Senokot S 8.6-50 MG TAB PO SCH (09:18)
[2021-11-24] MEDS: HumaLOG 300 UNITS/3 ML VIAL SC PRN (13:00)
[2021-11-24] MEDS: Gabapentin 300 MG CAP PO SCH (22:39)
[2021-11-24] MEDS: Cyclobenzaprine 10 MG TAB PO SCH (22:39)
[2021-11-24] MEDS: metFORMIN 500 MG TAB PO SCH (22:40)
[2021-11-24] MEDS: Magnesium Oxide 400 MG TAB PO SCH (22:40)
[2021-11-25 06:47] LABS: Hemoglobin 12.7 g/dL (14.0-18.0); Mean Corpuscular HGB CONC 32.5 g/dL (32.0-36.0); Mean Corpuscular Hemoglobin 33.9 pg (27.0-31.0); Mean Platelet Volume 8.9 fL (7.4-10.4); Platelet Count 116 thou/uL (130-400); RBC Distribution Width 12.5 % (11.5-14.5); Red Blood Cell (RBC) Count 3.74 mill/uL (4.70-6.10); White Blood Cell (WBC) Count 6.3 thou/uL (4.8-10.8)
[2021-11-25 07:37] LABS: Anion Gap 16 mmol/L (10-20); BUN (Urea Nitrogen) 16 mg/dL (8.4-25.7); Calc. Creatinine Clearance 135 mL/min (70-130); Calcium 9.7 mg/dL (7.8-10.44); Carbon Dioxide 27 mmol/L (23-31); Chloride 102 mmol/L (98-107); Estimated GFR 91; Glucose 146 mg/dL (83-110); Potassium 3.9 mmol/L (3.5-5.1); Sodium 141 mmol/L (136-145)
[2021-11-25] MEDS: Enoxaparin Sodium 40 MG/0.4 ML SYRINGE SC SCH (08:56)
[2021-11-25] MEDS: Zinc Sulfate 220 MG CAP PO SCH (08:56)
[2021-11-25] MEDS: Calcium Carbonate 600 MG + Vit D TAB PO SCH (08:56)
[2021-11-25] MEDS: Aspirin 81 mg Enteric Coated Tablet PO SCH (08:57)
[2021-11-25] MEDS: Multivitamin W/ Minerals 1 TAB PO SCH (08:57)
[2021-11-25] MEDS: Tamsulosin HCl 0.4 MG CAP PO SCH (08:57)
[2021-11-25] MEDS: Rosuvastatin 10 MG TAB PO SCH (08:57)
[2021-11-25] MEDS: Senokot S 8.6-50 MG TAB PO SCH (08:57)
[2021-11-25] MEDS: Finasteride 5 MG TAB PO SCH (08:57)
[2021-11-25] MEDS: HumaLOG 300 UNITS/3 ML VIAL SC PRN ×2 (12:09→17:16)
[2021-11-25] MEDS: metFORMIN 500 MG TAB PO SCH (20:55)
[2021-11-25] MEDS: Gabapentin 300 MG CAP PO SCH (20:56)
[2021-11-25] MEDS: Cyclobenzaprine 10 MG TAB PO SCH (20:56)
[2021-11-25] MEDS: Magnesium Oxide 400 MG TAB PO SCH (20:56)
[2021-11-26 07:17] LABS: Hemoglobin 11.8 g/dL (14.0-18.0); Mean Corpuscular HGB CONC 33.3 g/dL (32.0-36.0); Mean Corpuscular Volume 99.2 fL (78.0-98.0); Mean Platelet Volume 7.5 fL (7.4-10.4); Platelet Count 173 thou/uL (130-400); Red Blood Cell (RBC) Count 3.57 mill/uL (4.70-6.10); White Blood Cell (WBC) Count 7.6 thou/uL (4.8-10.8)
[2021-11-26] MEDS: Enoxaparin Sodium 40 MG/0.4 ML SYRINGE SC SCH (08:53)
[2021-11-26] MEDS: Tamsulosin HCl 0.4 MG CAP PO SCH (08:54)
[2021-11-26] MEDS: Senokot S 8.6-50 MG TAB PO SCH (08:54)
[2021-11-26] MEDS: Finasteride 5 MG TAB PO SCH (08:54)
[2021-11-26] MEDS: Calcium Carbonate 600 MG + Vit D TAB PO SCH (08:54)
[2021-11-26] MEDS: Rosuvastatin 10 MG TAB PO SCH (08:54)
[2021-11-26] MEDS: Zinc Sulfate 220 MG CAP PO SCH (08:54)
[2021-11-26] MEDS: Multivitamin W/ Minerals 1 TAB PO SCH (08:55)
[2021-11-26] MEDS: Aspirin 81 mg Enteric Coated Tablet PO SCH (08:55)
[2021-11-26 20:06] VITALS: BP 146/89; TEMP 98.4
== END 2021-11-26 20:39 | disposition hospice, home (50) ==
LOC: T4-A 21:36
PROVIDERS: ADMIT Student in an Organized Health Care Education/Training Program; ATTEND Student in an Organized Health Care Education/Training Program
DX: T67.01XA Heatstroke and sunstroke, initial encounter (principal); E11.9 Type 2 diabetes mellitus without complications; E78.5 Hyperlipidemia, unspecified; I10 Essential (primary) hypertension; I69.328 Other speech and language deficits following cerebral infarction; I69.351 Hemiplegia and hemiparesis following cerebral infarction affecting right dominant side; Z79.82 Long term (current) use of aspirin; Z79.84 Long term (current) use of oral hypoglycemic drugs; Z79.899 Other long term (current) drug therapy; Z88.1 Allergy status to other antibiotic agents; Z88.2 Allergy status to sulfonamides; Z88.8 Allergy status to other drugs, medicaments and biological substances; Z20.822 Contact with and (suspected) exposure to COVID-19; X30.XXXA Exposure to excessive natural heat, initial encounter
CPT/HCPCS: 80048 ×2; 80053; 82550; 82962 ×3; 85025; 85027 ×2; 96372 ×3; 99285; G0378 ×3; U0003; U0005; 36415; 36416; J1650; J1815; J7120; Q0162